=== PATIENT | female | born 1985 | race African-American/Black ===

== ENCOUNTER 2020-05-13 00:19 | Outpatient (CLI) | payer OTHER, SELFPAY ==
[2020-05-14 13:39] LABS: SARS-CoV-2 RNA PCR Negative
== END 2020-05-13 00:20 | disposition home or self-care (01) ==
LOC: ANHCOVIDDT 00:19
PROVIDERS: PCP Internal Medicine Gastroenterology; Visit Provider Obstetrics & Gynecology Gynecology
DX: Z01.812 Encounter for preprocedural laboratory examination (principal); Z11.59 Encounter for screening for other viral diseases
CPT/HCPCS: 87635; C9803; U0003

== ENCOUNTER 2020-05-16 01:19 | Day surgery (SDC) | payer OTHER, SELFPAY ==
[2020-05-02 15:12] VITALS: BMI 45.1
[2020-05-16] MEDS: ACETAMINOPHEN 500 MG TABLET 1000 MG PO (06:35)
[2020-05-16] MEDS: LACTATED RINGERS 1,000 ML 30 ML IV CONT (06:41)
[2020-05-16 06:57] VITALS: BP 139/94; PULSE 78; RESP 20; TEMP 36.2; O2SAT 98
--- NOTE | 2020-05-16 07:02 | WPDANESEPPF ---
Anes - Initial Pre Proc Eval Procedure: Operation Date: 05/16/20 07:30 Proposed Procedures p Hysteroscopy Dilation and Curettage - Rae Corbett MD Date/Time: 05/16/20 07:02 Surgeon: Rae Corbett MD Pre Op Diagnosis: Menorrhagia Patient Data Age: 34 Gender: F Height: 5 ft 2 in Weight: 110.2 kg Last Vital Signs Temp 97.2 F L 05/16/20 06:57 Pulse 78 05/16/20 06:57 Resp 20 05/16/20 06:57 BP 139/94 H 05/16/20 06:57 Pulse Ox 98 05/16/20 06:57 Allergies Allergy/AdvReac Type Severity Reaction Status Date / Time tramadol Allergy Unknown ANXIETY/HEART Verified 05/02/20 15:13 RACING hydrocodone AdvReac Mild Vomiting Verified 05/02/20 15:13 Home Medications Medication Instructions Recorded Confirmed Type drospirenone (contraceptive) 4 mg PO DAILY 05/02/20 05/16/20 History [Slynd] hydroxyzine HCl 25 mg PO HS 05/02/20 05/16/20 History metformin 500 mg PO DAILY 05/02/20 05/16/20 History Patient hx anesthesia problems: none Family hx anesthesia problems: none [facility] Past Medical History Medical History (Updated 05/16/20 @ 07:02 by Max Ayers MD) Anxiety Asthma Migraine Morbid obesity Social History Social History Smoking status: Never smoker Alcohol intake: current Drinks per week: 1 Spiritual care concerns: No Anes - Eval Final PreProcedure Day of Procedure 05/16/20 07:02 Patient weight: morbidly obese Heart: regular rate and rhythm Lungs: clear to auscultation Airway: Mallampati scale class II Neurological: alert and oriented Last oral intake: >/= 8 hours ASA classification: III Emergent: no Anesthetic plan: proceed Anesthesia type and monitoring: general GIVS and standard monitoring Informed Consent: The patient's anesthetic plan and its attendant risks and benefits were discussed with the patient/family/POA. Questions were solicited and answers provided to the satisfaction of the patient/family/POA.
--- NOTE | 2020-05-16 07:08 | PM.HPGS ---
History of Present Illness History of Present Illness Consent: Risks, benefits, and alternatives have been discussed and questions answered. Patient agrees to proceed with procedure. Chief complaint: Menorrhagia Narrative: Holly Lyles is a 34 year old female A2 here with menorrhagia for D&C hysteroscopy. Patient with episode of 21 days of bleeding with variable flow. 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 Just had another prolonged cycle as well. Prior to prolonged cycles she had cycles q other month x 3. U/s done and normal. Patient with known PCOS. Recommend and reviewed hysteroscopy with D&C. Risks of infection, bleeding, and perforation discussed. Patient agrees to proceed. [facility] Past Medical History Medical History (Updated 05/16/20 @ 07:15 by Rae Corbett MD) Anxiety Asthma Bipolar 1 disorder Ectopic treated with methotrexate Migraine Morbid obesity (normal spontaneous vaginal delivery) PCOS (polycystic ovarian syndrome) Surgical History Surgical History (Updated 05/16/20 @ 07:13 by Rae Corbett MD) Hx of tonsillectomy Social History Social History Smoking status: Never smoker Alcohol intake: current Drinks per week: 1 Spiritual care concerns: No Meds Home Medications and Allergies Home Medications Medication Instructions Recorded Confirmed Type drospirenone (contraceptive) 4 mg PO DAILY 05/02/20 05/16/20 History [Slynd] hydroxyzine HCl 25 mg PO HS 05/02/20 05/16/20 History metformin 500 mg PO DAILY 05/02/20 05/16/20 History Allergies Allergy/AdvReac Type Severity Reaction Status Date / Time tramadol Allergy Unknown ANXIETY/HEART Verified 05/02/20 15:13 RACING hydrocodone AdvReac Mild Vomiting Verified 05/02/20 15:13 Vital Signs Vital Signs - 24 hr 05/16/20 06:57 Temperature 97.2 F L Pulse Rate 78 Respiratory Rate 20 Blood Pressure 139/94 H Pulse Oximetry 98 Exam Const: General: no acute distress GI: GI Palp: Yes Soft to palpation and No Tenderness to palpation present (GI) : External Female Exam: normal external appearance Speculum Exam - Vagina: normal appearance of the vagina Speculum Exam - Cervix: normal appearance of the cervix Bimanual exam- vagina & uterus: normal bimanual exam Assessment and Plan Assessment and plan (1) Menorrhagia: Code(s): N92.0 - Excessive and frequent menstruation with regular cycle Status: Acute Assessment and Plan: Plan to proceed with hysteroscopy and D&C
--- NOTE | 2020-05-16 07:54 | PM.PROC ---
Procedure Note - Detailed Date of procedure: 05/16/20 Pre-op diagnosis: Menorrhagia Post-op diagnosis: same Procedure performed: hysteroscopy with D&C Description of procedure: The patient was taken to the operating room and placed under anesthesia in the dorsal lithotomy position. She is prepped and draped in the usual fashion. The bivalve speculum is placed in the vagina and the cervix grasped anteriorly with a tenaculum. The uterus sounds to 9cm. The cervix is serially dilated with Hegar. The diagnostic hysteroscope was placed with the stated findings. The hysteroscope is removed. A medium sharp curette is used to sharply curette the endometrium until a good uterine cry was noted in all areas. All instruments are removed. The patient is taken to recovery in stable condition. Anesthesia: MAC (with LMA) Surgeon: Rae Corbett MD Estimated blood loss (mL): 5 Drains: No Packing: No Pathology: yes (endometrial curettings) Complications: No immediate complications Condition: stable Disposition: PACU Findings: uterus 9 cm; grossly appears normal
[2020-05-16 07:58] VITALS: BP 139/94; PULSE 76; RESP 16; O2SAT 99
[2020-05-16 08:28] VITALS: BP 134/92; PULSE 76; RESP 16
[2020-05-16 08:58] VITALS: BP 155/92; PULSE 60; RESP 16
[2020-05-16 09:28] VITALS: BP 141/87; PULSE 61; RESP 16
== END 2020-05-16 09:45 | disposition home or self-care (01) ==
PROVIDERS: PCP Internal Medicine Gastroenterology; Visit Provider Obstetrics & Gynecology Gynecology
PROC: 0U5B8ZZ Destruction of Endometrium, Via Natural or Artificial Opening Endoscopic (ICD-10-PCS; CPT 58563; principal; 2020-05-16 07:30)
DX: N92.0 Excessive and frequent menstruation with regular cycle (principal); E66.01 Morbid (severe) obesity due to excess calories; Z68.41 Body mass index [BMI] 40.0-44.9, adult; F41.9 Anxiety disorder, unspecified; E28.2 Polycystic ovarian syndrome; Z79.84 Long term (current) use of oral hypoglycemic drugs; F31.9 Bipolar disorder, unspecified
CPT/HCPCS: 58558; 88305; A9270; J2250; J2704; J3010; J7030; J7120

== ENCOUNTER 2020-09-10 19:19 | Emergency (ER) | payer OTHER, SELFPAY ==
[2020-09-10] VITALS (7 sets, daily range): BP systolic 112–146; BP diastolic 55–95; PULSE 83; RESP 18; TEMP 36.9; O2SAT 99–100
--- NOTE | ~2020-09-10 | XR_ITS ---
EXAMINATION: XR chest 1V portable DATE: 09/10/2020 20:02 INDICATION: Cough and shortness of breath. TECHNIQUE: A single frontal view of the chest was obtained. COMPARISON: Chest 2 views 11/11/2018, CT abdomen and pelvis 03/31/2016 FINDINGS: The chest demonstrates clear lungs without pneumonia, pleural effusion, or pneumothorax. Th e heart size is normal. IMPRESSION: 1. No acute cardiopulmonary disease. Reviewed, dictated and finalized at location A. [employer]
--- NOTE | 2020-09-10 19:39 | ECG_ITS ---
Measurements Intervals [place]raw Rate: 66 P: 41 ID: 148 QRS: -11 QRSD: 86 T: 27 QT: 386 QTc: 406 Interpretive Statements SINUS RHYTHM WITH SINUS ARRHYTHMIA NONSPECIFIC T-WAVE ABNORMALITY- INFERIOR LEADS BORDERLINE ECG Electronically Signed On 09-11-2020 7:38:15 PRACTICE NURSE by Juan Perry D.O.
--- NOTE | 2020-09-10 19:41 | ED.GENADULT ---
HPI - General Adult General Chief complaint: Weakness Stated complaint: short of breath, weakness, has Covid Time Seen by Provider: 09/10/20 19:27 Source: RN notes reviewed History of Present Illness HPI narrative: Patient presents emergency department from home for dyspnea. Patient states that she began to feel sick approximately 4 days ago and had lost her sense of smell she had a Covid test at that time that came back positive today. She states this evening she began to have increasing feeling of chest tightness and shortness of breath. She states she also had nausea which she continues to have as well as an episode of diarrhea. States she has been feeling weak. She denies any fevers or chills abdominal pain or any other symptoms Related Data Home Medications Medication Instructions Recorded Confirmed hydroxyzine HCl 25 mg PO HS 05/02/20 05/16/20 cetirizine mg 09/10/20 Allergies Allergy/AdvReac Type Severity Reaction Status Date / Time tramadol Allergy Unknown ANXIETY/HEART Verified 09/10/20 19:21 RACING hydrocodone AdvReac Mild Vomiting Verified 09/10/20 19:21 Review of Systems Review of Systems: Narrative: Gen.: Denies fevers or chills ENT: Denies congestion Respiratory: See HPI CV: Reports chest tightness GI: Denies abdominal pain or emesis. Reports nausea and diarrhea denies Musculoskeletal: Denies back pain or muscle pain Neuro: Denies numbness, tingling, weakness or focal weakness Skin: Denies rash Except as documented, all other systems reviewed and negative PMFSH Past Medical History Medical History Anxiety Asthma Bipolar 1 disorder Ectopic treated with methotrexate Migraine Morbid obesity (normal spontaneous vaginal delivery) PCOS (polycystic ovarian syndrome) Surgical History Surgical History (Updated 05/16/20 @ 07:13 by Rae Corbett MD) Hx of tonsillectomy Social History Social History Smoking status: Never smoker Alcohol intake: current Drinks per week: 1 Gender identity (if verbalized by the patient): Female Spiritual care concerns: No Exam Narrative: Exam Narrative: APPEARANCE: No acute distress, nontoxic, resting in bed EYES: EOMI HEENT: Normocephalic, atraumatic, RESPIRATORY: No respiratory distress Clear to auscultation bilaterally with no rhonchi wheezing or rales. CARDIOVASCULAR: Regular rate and rhythm without murmurs rubs or gallops. ABDOMINAL: Soft, nontender, nondistended, no rebound or guarding MUSCULOSKELETAl: Moves all extremities. No clubbing, cyanosis or edema. NEURO: Awake and alert. Following commands, speech normal, no focal deficits SKIN:: Warm, dry. No rashes lesions or abrasions PSYCHIATRIC: Normal affect/mood, Course Course Emergency Course: Patient given inhaler in ED states symptoms have improved Discussed with patient results of workup and diagnosis. Discussed need for follow-up with primary care, proper use of medication, and reasons to return to the emergency department. Patient understands and agrees to current treatment plan Vital Signs Vital signs: Vital Signs Temperature 98.4 F 09/10/20 19:22 Pulse Rate 83 09/10/20 19:22 Respiratory Rate 18 09/10/20 19:22 Blood Pressure 146/95 H 09/10/20 19:22 Pulse Oximetry 100 09/10/20 19:22 Temperature 98.4 F 09/10/20 19:22 Pulse Rate 83 09/10/20 19:22 Respiratory Rate 18 09/10/20 19:22 Blood Pressure 146/95 H 09/10/20 19:22 Pulse Oximetry 100 09/10/20 19:22 Medical Decision Making Vital Signs Vital Signs: Vital Signs Temperature 98.4 F 09/10/20 19:22 Pulse Rate 83 09/10/20 19:22 Respiratory Rate 18 09/10/20 19:22 Blood Pressure 146/95 H 09/10/20 19:22 Pulse Oximetry 100 09/10/20 19:22 Temperature 98.4 F 09/10/20 19:22 Pulse Rate 83 09/10/20 19:22 Respiratory Rate 18
[2020-09-10 20:28] LABS: Basophils Percent Auto 0.1 % (0.2-1.2); Eosinophils Percent Auto 0.1 % (0-4.4); Hemoglobin 13.5 g/dL (12.0-15.0); Immature Granulocyte Absolute 0.02 K/mm3 (0.00-0.031); Immature Granulocyte Percent A 0.3 % (0-0.5); Lymphocytes Absolute Auto 1.12 K/mm3 (0.9-3.2); Lymphocytes Percent Auto 16.4 % (18.3-44.2); Mean Corpuscular HGB Conc 32.1 g/dl (32-36); Mean Corpuscular Hemoglobin 27.2 pg (26-34); Mean Corpuscular Volume 84.7 fl (80-100); Mean Platelet Volume 11.1 fl (7.4-10.4); Monocytes Absolute Auto 0.8 K/mm3 (0.1-0.6); Monocytes Percent Auto 11.3 % (2.6-8.5); Neutrophils Absolute Auto 4.9 K/mm3 (1.3-6.7); Neutrophils Percent Auto 71.8 % (45.5-73.1); Platelet Count Result 192 k/mm3 (150-375); Red Blood Count 4.96 M/mm3 (4.2-5.4); Red Cell Distribution Width 14.7 % (11.5-14.5); White Blood Count 6.8 K/mm3 (4.5-10.0)
[2020-09-10] MEDS: ONDANSETRON INJ 4 MG/2 ML VIAL IV PUSH (20:31)
[2020-09-10 20:38] LABS: INR 0.9; Partial Thromboplastin Time 27.8 SECONDS (22.3-36.8); Prothrombin Time 12.8 Seconds (11.1-14.7)
[2020-09-10 20:42] LABS: Alanine Aminotransferase 16 U/L (4-35); Albumin Level 3.8 g/dL (3.5-5.1); Alkaline Phosphatase 75 U/L (38-126); Anion Gap 5 mmol/L (8-16); Aspartate Amino Transferase 24 U/L (14-36); Bilirubin,Total 0.3 mg/dL (0.2-1.3); Blood Urea Nitrogen 12 mg/dL (7-17); Calcium 8.9 mg/dL (8.4-10.2); Carbon Dioxide 30 mmol/L (22-30); Chloride 101 mmol/L (98-107); Estimated CRCL calculation 81 ml/min; Estimated Glomerular Filt Rate > 60; Glucose 102 mg/dL (65-105); Potassium 3.7 mmol/L (3.4-5.0); Sodium 136 mmol/L (137-145)
[2020-09-10 21:00] LABS: Troponin I < 0.012 ng/mL (0.000-0.034)
[2020-09-10] MEDS: ALBUTEROL SULFATE (*SP) AEROSOL 1 PUFF 2 PUFF INHALATION (21:32)
[2020-09-10 21:43] LABS: Add Urine Microscopic? NO; Appearance Urine Clear (Clear); Bilirubin Urine Negative (Negative); Blood Urine Negative (Negative); Color Urine Straw (Yellow); Glucose Urine UA Negative (Negative); Ketones Urine Negative (Negative); Leukocyte Esterase Ur Negative LEU/UL (Negative); Nitrate Urine Negative (Negative); Protein Urine Negative (Negative); Specific Grav Ur 1.015 (1.001-1.035); Urobilinogen Urine Negative mg/dL (<2.0)
[2020-09-11 00:17] VITALS: BP 119/56; PULSE 84; RESP 18; O2SAT 100
== END 2020-09-11 00:18 | disposition home or self-care (01) ==
PROVIDERS: Emergency Provider Emergency Medicine; PCP Internal Medicine Gastroenterology
DX: U07.1 COVID-19 (principal); J45.909 Unspecified asthma, uncomplicated; E28.2 Polycystic ovarian syndrome; E66.01 Morbid (severe) obesity due to excess calories; Z68.41 Body mass index [BMI] 40.0-44.9, adult; R94.31 Abnormal electrocardiogram [ECG] [EKG]
CPT/HCPCS: 36415; 71045; 80053; 81003; 81025; 84484; 85025; 85380; 85610; 85730; 93005; 94640; 96365; 96375; 99284; A9270; J0131; J2405

== ENCOUNTER 2020-11-20 17:22 | Emergency (ER) | payer OTHER, SELFPAY ==
[2020-11-20 17:39] VITALS: BP 127/81; PULSE 76; RESP 16; TEMP 36.6; O2SAT 100
--- NOTE | 2020-11-20 17:43 | ED.GENADULT ---
HPI - General Adult General Chief complaint: Skin/Abscess/Foreign Body Stated complaint: pos skin abcess Time Seen by Provider: 11/20/20 17:43 Source: patient and RN notes reviewed Mode of arrival: ambulatory Limitations: no limitations History of Present Illness HPI narrative: 35-year-old -[place] female presents with complaints of a raised area to left lower back for months. Holly reports area increased in size, redness, tenderness, and swelling over the past 24 hours. No treatment. Tender to touch. No drainage. History of skin abscess. No fever or sweats. No abdominal pain, nausea, and vomiting. Tolerating po intake well. LMP 10/19/2020, irregular menstrual due to PCOS. Remains active. The patient reports she have not been diagnosed with COVID-19. The patient reports she is not waiting for the results of a COVID-19 lab test. The patient reports she do not have chills, weakness, or fatigue. The patient reports she do not have a new or worsening cough or shortness of breath. Denies chest pain. The patient reports she do not have any rhinorrhea, congestion, sore throat, loss of taste or smell, and diarrhea. Denies recent traveling. Denies concerns for COVID-19 or exposures been home with limited outdoor exposure except for essential household needs, work, and return home. At this time, patient is not suspected of having COVID-19. Some parts of this dictation were generated by voice recognition software and may contain typographical and/or grammatical inaccuracies. Related Data Home Medications Medication Instructions Recorded Confirmed hydroxyzine HCl 25 mg PO HS 05/02/20 05/16/20 Allergies Allergy/AdvReac Type Severity Reaction Status Date / Time tramadol Allergy Unknown ANXIETY/HEART Verified 09/10/20 19:21 RACING hydrocodone AdvReac Mild Vomiting Verified 09/10/20 19:21 Review of Systems Review of Systems: Narrative: CONSTITUTIONAL: Denies fever, chills, sweats. EYES: Denies visual changes, redness, discharge. ENT: Denies rhinorrhea, congestion, sore throat, otalgia. CARDIOVASCULAR: Denies chest pain, palpitations, edema. RESPIRATORY: Denies dyspnea, wheezing, cough. GASTROINTESTINAL: Denies abdominal pain, nausea, vomiting, diarrhea. SKIN: Denies rash or itching. Complains of raised area to left lower back with redness, tenderness, swelling. Denies drainage. MUSCULOSKELETAL: Denies acute back pain, joint pain, or myalgia. NEUROLOGIC: Denies numbness or focal weakness. PSYCHIATRIC: Denies anxiety or depression. All systems reviewed & are unremarkable except as noted in HPI and below. [facility] Past Medical History Medical History (Updated 11/21/20 @ 00:00 by Adela Parish) Anxiety Asthma Bipolar 1 disorder COVID-19 Ectopic treated with methotrexate Menorrhagia Migraine Morbid obesity (normal spontaneous vaginal delivery) PCOS (polycystic ovarian syndrome) Surgical History Surgical History (Updated 11/20/20 @ 18:05 by KURT Long) History of adenoidectomy History of dental surgery Hx of tonsillectomy Family History Family History (Updated 11/25/20 @ 01:24 by KURT Long) Father Unknown family medical history Mother Hypertension Breast cancer Lupus (systemic lupus erythematosus) Social History Social History (Updated 11/20/20 @ 18:07 by KURT Long) Smoking status: Former smoker Tobacco type: cigarettes Second hand tobacco smoke exposure: No (Holly reports being a light smoker when drinking) Alcohol intake: former Drinks per week: 1 Alcohol use details: reporting quitting 10/31/2020 Substance use: never Substance use type: does not use Living arrangements: with family Occupation/Education: occupation Gender identity (if verbalized by the patient): Female Sexual Orientation (if Verbalized by the Patient): Straight or Heterosexual Spiritual care concerns: No Comments At time of signature,
== END 2020-11-20 18:16 | disposition home or self-care (01) ==
PROVIDERS: Emergency Provider Nurse Practitioner Family; PCP Internal Medicine Gastroenterology
DX: L02.212 Cutaneous abscess of back [any part, except buttock and flank] (principal); J45.909 Unspecified asthma, uncomplicated; E28.2 Polycystic ovarian syndrome; Z86.16 Personal history of COVID-19; Z87.891 Personal history of nicotine dependence
CPT/HCPCS: 87070; 87075; 87076; 87205; 99213; G0463

== ENCOUNTER 2021-04-14 19:00 | Emergency (ER) | payer OTHER, SELFPAY ==
--- NOTE | ~2021-04-14 | XR_ITS ---
EXAMINATION: XR ankle RT min 3V DATE: 04/14/2021 20:16 INDICATION: Persistent right ankle pain post fall 3 months prior. TECHNIQUE: Anteroposterior, oblique, mortise, and lateral views of the right ankle were obtained. COMPARISON: 11/30/2012 FINDINGS: Alignment is normal. No fracture. Joint spaces are well maintained. No ankle joint effusion. Small Achilles and plantar calcaneal spurs. The soft tissues are unremarkable. IMPRESSION: 1. Small Achilles and plantar calcaneal spurs. Otherwise unremarkable right ankle radiographs. Reviewed, dictated and finalized at location A. IMPRESSION: 1. Small Achilles and plantar calcaneal spurs. Otherwise unremarkable right ank le radiographs.
--- NOTE | ~2021-04-14 | XR_ITS ---
EXAMINATION: XR hip LT min 2V DATE: 04/14/2021 20:17 INDICATION: Intermittent left hip pain TECHNIQUE: Anteroposterior , frog leg and cross-table lateral views of the left hip were obtained. COMPARISON: 03/31/16 FINDINGS: Alignment is normal. No fracture. Joint spaces are normal. A few phleboliths in the pelvis. Soft tiss ues are unremarkable. IMPRESSION: 1. Normal left hip. Reviewed, dictated and finalized at location A. IMPRESSION: 1. Normal left hip.
[2021-04-14 19:54] VITALS: BP 142/93; PULSE 89; RESP 18; TEMP 36; O2SAT 100
--- NOTE | 2021-04-14 21:14 | ED.GENADULT ---
HPI - General Adult General Chief complaint: Extremity Injury, Lower Stated complaint: right ankle and foot pain, left thigh pain Time Seen by Provider: 04/14/21 20:58 History of Present Illness HPI narrative: Patient 35-year-old female presents the emergency department with chief complaint of right ankle and foot pain and left thigh pain. Patient reports that for several months now she has been having pain in the right ankle was seen by orthopedic surgeon after she was seen in the ER at [facility] and reports that she was supposed to get an MRI but has had difficulty with her insurance and obtaining the MRI. Patient states that she was wearing a walking boot but that subsequently broke and she has been having pain continuously. Patient states is worse whenever she walks reports that it is improved with rest. The patient states that now she started having pain in her left thigh as she walks. The patient states that sharp worse with movement and improved with rest Related Data Home Medications Medication Instructions Recorded Confirmed hydroxyzine HCl 25 mg PO HS 05/02/20 05/16/20 Allergies Allergy/AdvReac Type Severity Reaction Status Date / Time tramadol Allergy Unknown ANXIETY/HEART Verified 09/10/20 19:21 RACING hydrocodone AdvReac Mild Vomiting Verified 09/10/20 19:21 Review of Systems Review of Systems: A 10 system review of systems was completed on the patient and is negative except for what is stated in the HPI. Nursing and ancillary documentation was reviewed. [facility] Past Medical History Medical History Anxiety Asthma Bipolar 1 disorder COVID-19 Ectopic treated with methotrexate Menorrhagia Migraine Morbid obesity (normal spontaneous vaginal delivery) PCOS (polycystic ovarian syndrome) Surgical History Surgical History History of adenoidectomy History of dental surgery Hx of tonsillectomy Family History Family History Father Unknown family medical history Mother Hypertension Breast cancer Lupus (systemic lupus erythematosus) Social History Social History Smoking status: Former smoker Tobacco type: cigarettes Second hand tobacco smoke exposure: No ([facility] reports being a light smoker when drinking) Alcohol intake: former Drinks per week: 1 Alcohol use details: reporting quitting 10/31/2020 Substance use: never Substance use type: does not use Gender identity (if verbalized by the patient): Female Spiritual care concerns: No Exam Narrative: GENERAL: Well-appearing, well-nourished, and in no acute distress. HEAD: Normocephalic, atraumatic. EYES: PERRLA and EOMI. ENT: Nares clear, no rhinorrhea or epistaxis. Mucous membranes moist. NECK: Supple. CHEST: Clear to auscultation. No respiratory distress. HEART: Regular rate and rhythm. No murmur heard. Normal peripheral pulses. ABDOMEN: Soft, nontender, nondistended, normal active bowel sounds. EXTREMITIES: Normal range of motion. No edema. There is tenderness to palpation in the right ankle., There is no swelling. There is tenderness in the left thigh there is no swelling there is a negative Homans' sign SKIN: Warm, dry, no rash. NEURO: No focal deficits. Alert and oriented x3. PSYCH: Normal mood and affect. Course Course Emergency Course: Plain film x-rays of the left hip show no evidence of fracture. Repeat x-rays of the right ankle showed no evidence of fracture but does show some heel spurs. Vital Signs Vital signs: Vital Signs Temperature 36.0 C L 04/14/21 19:54 Pulse Rate 89 04/14/21 19:54 Respiratory Rate 18 04/14/21 19:54 Blood Pressure 142/93 H 04/14/21 19:54 Pulse Oximetry 100 04/14/21 19:54 Temperature 36.6 C 04/14
[2021-04-14 21:37] VITALS: BP 139/88; PULSE 74; RESP 18; TEMP 36.6; O2SAT 100
[2021-04-14] MEDS: IBUPROFEN 400 MG TABLET 800 MG PO (21:40)
== END 2021-04-14 21:58 | disposition home or self-care (01) ==
LOC: ANHED 21:20
PROVIDERS: Emergency Provider Emergency Medicine; PCP Internal Medicine Gastroenterology
DX: S93.401A Sprain of unspecified ligament of right ankle, initial encounter (principal); S96.911A Strain of unspecified muscle and tendon at ankle and foot level, right foot, initial encounter; S76.012A Strain of muscle, fascia and tendon of left hip, initial encounter; S76.912A Strain of unspecified muscles, fascia and tendons at thigh level, left thigh, initial encounter; M77.31 Calcaneal spur, right foot; F31.9 Bipolar disorder, unspecified; E28.2 Polycystic ovarian syndrome; Z86.16 Personal history of COVID-19; Y33.XXXA Other specified events, undetermined intent, initial encounter
CPT/HCPCS: 73502; 73610; 99284; A9270

== ENCOUNTER 2021-09-14 14:21 | Emergency (ER) | payer OTHER, SELFPAY ==
--- NOTE | ~2021-09-14 | XR_ITS ---
EXAMINATION: XR chest 2V EXAM DATE: 09/14/2021 14:57 INDICATION: Cough, wheezing. History of asthma. TECHNIQUE: Frontal and lateral projections of the chest obtained and reviewed. Comparison is made to prior examination from 09/10/2020. FINDINGS: The lungs are clear. There are no pleural effusions. The cardiomediastinal silhouette is within normal limits. There is no pneumothorax suspected. The bones and soft tissues are unremarkab le. IMPRESSION: No acute cardiopulmonary findings. Reviewed, dictated and finalized at location A. W BALER
[2021-09-14 14:31] VITALS: BP 135/81; PULSE 89; RESP 16; TEMP 36.7; O2SAT 99
--- NOTE | 2021-09-14 14:31 | ED.URI ---
HPI - URI/Sore Throat General Chief Complaint: Upper Respiratory Infection Stated Complaint: cough Time Seen by Provider: 09/14/21 14:32 Source: patient, RN notes reviewed and old records reviewed Mode of arrival: ambulatory Limitations: no limitations History of Present Illness HPI Narrative: 36-year-old female presents to the [facility] care with complaints of a cough, nonproductive for 3 days. Has taken Mucinex and used her inhaler. Has a history of chronic bronchitis. Denies chest pain or abdominal pain. No nausea vomiting. Denies fevers MD elicited complaint: cough Related Data Home Medications Medication Instructions Recorded Confirmed hydroxyzine HCl 25 mg PO HS 05/02/20 09/14/21 Allergies Allergy/AdvReac Type Severity Reaction Status Date / Time tramadol Allergy Unknown ANXIETY/HEART Verified 09/14/21 14:33 RACING hydrocodone AdvReac Mild Vomiting Verified 09/14/21 14:33 Review of Systems Review of Systems: All systems reviewed & are unremarkable except as noted in HPI and below Constitutional: Constitutional: Reports no additional constitutional complaints, Denies chills and Denies fever(s) Eyes: Eyes: Reports no additional eye complaints ENT: Reports system reviewed and no additional complaints, except as documented Cardiovascular: Cardiovascular: Reports no additional cardiovascular complaints, Denies chest pain, Denies rapid heart rate, Denies radiating jaw, neck or arm pain and Denies slow heart rate Respiratory: Respiratory: Reports as per HPI, Reports chest congestion, Reports cough, Reports dyspnea and Reports wheezing Gastrointestinal: Gastrointestinal: Reports no additional gastrointestinal complaints, Denies abdominal pain, Denies diarrhea, Denies nausea and Denies vomiting Musculoskeletal: Musculoskeletal: Reports no additional musculoskeletal complaints Integumentary/Breasts: Skin/Breast: Reports system reviewed and no additional complaints, except as docu Neurologic: Reports system reviewed and no additional complaints, except as documented Psychiatric: Psychiatric: Reports no additional psychiatric complaints Allergic/Immunologic: Allergic/Immunologic: Reports no additional allergic/immunologic complaints PMFSH Past Medical History Medical History Anxiety Asthma Bipolar 1 disorder COVID-19 Ectopic treated with methotrexate Menorrhagia Migraine Morbid obesity (normal spontaneous vaginal delivery) PCOS (polycystic ovarian syndrome) Surgical History Surgical History History of adenoidectomy History of dental surgery Hx of tonsillectomy Family History Family History Father Unknown family medical history Mother Hypertension Breast cancer Lupus (systemic lupus erythematosus) Social History Social History Smoking status: Former smoker Tobacco type: cigarettes Second hand tobacco smoke exposure: No (Holly reports being a light smoker when drinking) Alcohol intake: former Drinks per week: 1 Alcohol use details: reporting quitting 10/31/2020 Substance use: never Substance use type: does not use Gender identity (if verbalized by the patient): Female Sexual Orientation (if Verbalized by the Patient): Straight or Heterosexual Spiritual care concerns: No Comments At the time of my signature, I reviewed and agree with the nursing past medical, surgical, social, and family history. There is no relevant family history pertinent to the patient complaint. Exam Const: General: healthy appearing, no acute distress and alert Nutritional Appearance: well nourished and obese Orientation/consciousness: patient oriented x3 Limitations: no limitations HENMT: Head: normal to inspection Ears: external ears normal, TM's normal bilaterally
[2021-09-14] MEDS: ALBUTEROL SULFATE NEB 2.5 MG/3 ML INH INHALATION (15:08)
[2021-09-14] MEDS: IPRATROPIUM BR 0.02% INH SOLN 0.5 MG/2.5 ML VIAL INHALATION (15:09)
[2021-09-14 15:40] VITALS: PULSE 96; RESP 20; O2SAT 100
== END 2021-09-14 15:50 | disposition home or self-care (01) ==
PROVIDERS: Emergency Provider Nurse Practitioner; PCP Internal Medicine Gastroenterology
DX: J40 Bronchitis, not specified as acute or chronic (principal); Z87.891 Personal history of nicotine dependence; J45.909 Unspecified asthma, uncomplicated; Z86.16 Personal history of COVID-19; E28.2 Polycystic ovarian syndrome; E66.01 Morbid (severe) obesity due to excess calories; Z68.41 Body mass index [BMI] 40.0-44.9, adult; F41.9 Anxiety disorder, unspecified
CPT/HCPCS: 71046; 94640; 99213; G0463

== ENCOUNTER 2022-02-19 18:24 | Emergency (ER) | payer OTHER, SELFPAY ==
--- NOTE | ~2022-02-19 | CT_ITS ---
EXAMINATION: CT abdomen pelvis wo con DATE: 02/19/2022 19:45 INDICATION: right flank pain, hematuria TECHNIQUE: Computed tomography (CT) of the abdomen and pelvis was performed without intravenous contr ast. Automated exposure control and iterative reconstruction technique were employed. The dose-length product was 1425.59 mGy-cm. COMPARISON: 03/31/2016. FINDINGS: Lower thorax: Unremarkable Liver: Normal. Biliary/Gallbladder: Gallbladder is normal. No bile duct dilation. Pancreas: No mass or duct dilation. Spleen: Normal. Adrenals:No mass. Kidneys: No mass, stone, or hydronephrosis. GI tract: No small or large bowel dilation. Normal appendix. Mesentery/Peritoneum: No ascites, mass, or free air. Retroperitoneum: No mass. Pelvis: Pelvic organs are within normal limits. Soft Tissues: Soft tissues and body wall unremarkable. Bones: No acute osseous finding. IMPRESSION: No acute abdominopelvic process detected. Reviewed, dictated and finalized at location K.
[2022-02-19 18:26] VITALS: BP 139/87; PULSE 117; RESP 16; TEMP 36.7; O2SAT 97
[2022-02-19 18:36] LABS: Basophils Percent Auto 0.3 % (0.2-1.2); Eosinophils Absolute Auto 0.1 K/mm3 (0-0.3); Eosinophils Percent Auto 1.1 % (0-4.4); Hematocrit 42.3 % (37.0-47.0); Hemoglobin 13.1 g/dL (12.0-15.0); Immature Granulocyte Absolute 0.07 K/mm3 (0.00-0.031); Immature Granulocyte Percent A 0.7 % (0-0.5); Lymphocytes Absolute Auto 2.05 K/mm3 (0.9-3.2); Lymphocytes Percent Auto 19.6 % (18.3-44.2); Mean Corpuscular Hemoglobin 27.5 pg (26-34); Mean Corpuscular Volume 88.9 fl (80-100); Mean Platelet Volume 10.2 fl (7.4-10.4); Monocytes Absolute Auto 0.4 K/mm3 (0.1-0.6); Neutrophils Absolute Auto 7.8 K/mm3 (1.3-6.7); Neutrophils Percent Auto 74.3 % (45.5-73.1); Platelet Count Result 237 k/mm3 (150-375); Red Blood Count 4.76 M/mm3 (4.2-5.4); Red Cell Distribution Width 14.5 % (11.5-14.5); White Blood Count 10.5 K/mm3 (4.5-10.0)
[2022-02-19 18:51] LABS: Alanine Aminotransferase 19 U/L (6-35); Albumin Level 4.1 g/dL (3.5-5.1); Alkaline Phosphatase 92 U/L (38-126); Anion Gap 4 mmol/L (8-16); Aspartate Amino Transferase 21 U/L (14-36); Bilirubin,Total 0.3 mg/dL (0.2-1.3); Blood Urea Nitrogen 17 mg/dL (7-17); Calcium 8.8 mg/dL (8.4-10.2); Carbon Dioxide 29 mmol/L (22-30); Chloride 106 mmol/L (98-107); Estimated CRCL calculation 82 ml/min; Estimated Glomerular Filt Rate > 60; Glucose 141 mg/dL (65-110); Sodium 139 mmol/L (137-145)
[2022-02-19 18:56] LABS: Appearance Urine Slightly Cloudy (Clear); Bilirubin Urine Negative (Negative); Blood Urine Negative (Negative); Color Urine Yellow (Yellow); Glucose Urine UA Negative (Negative); Ketones Urine Negative (Negative); Leukocyte Esterase Ur Trace LEU/UL (Negative); Nitrate Urine Negative (Negative); Protein Urine Negative (Negative); Specific Grav Ur >= 1.030 (1.001-1.035); Urobilinogen Urine 0.2 mg/dL (<2.0); pH Urine 5.5 (5.0-9.0)
[2022-02-19 19:00] LABS: Bacteria Urine Trace /hpf; Mucus Urine Rare /lpf; Squamous Epithelial Cell Urine Many /hpf (Few); WBC Urine 16-20 /hpf
[2022-02-19 19:03] LABS: Add Urine Microscopic? YES
--- NOTE | 2022-02-19 19:36 | ED.GENADULT ---
HPI - General Adult General Chief complaint: Abdominal Pain Stated complaint: side pain Time Seen by Provider: 02/19/22 19:27 History of Present Illness HPI narrative: 36-year-old female presented to the emergency department for evaluation of right flank pain and burning with urination. Patient states she began having the urinary symptoms on Saturday. Patient describes burning with urination, some hematuria and bladder spasm after urinating. Patient states that approximately 2 days ago she began developing some right flank pain. Patient describes the pain as starting at her right lower flank and radiating around to her right lower quadrant. Patient denies any prior history of kidney stones. Related Data Home Medications Medication Instructions Recorded Confirmed hydroxyzine HCl 25 mg tablet 25 mg PO HS 05/02/20 09/14/21 Allergies Allergy/AdvReac Type Severity Reaction Status Date / Time tramadol Allergy Unknown ANXIETY/HEART Verified 02/19/22 20:20 RACING hydrocodone AdvReac Mild Vomiting Verified 02/19/22 20:20 Review of Systems Review of Systems: CONSTITUTIONAL: Denies fever, chills, or sweats. EYES: Denies visual changes, redness, or discharge. ENT: Denies rhinorrhea, congestion, sore throat, or otalgia. CARDIOVASCULAR: Denies chest pain, palpitations, or edema. RESPIRATORY: Denies cough or dyspnea. GASTROINTESTINAL: Denies abdominal pain, nausea, vomiting, or diarrhea. GENITOURINARY: See HPI SKIN: Denies rash or itching. MUSCULOSKELETAL: Denies back pain, joint pain, or myalgia. NEUROLOGIC: Denies headache, numbness, or weakness. [facility] Past Medical History Medical History Anxiety Asthma Bipolar 1 disorder COVID-19 Ectopic treated with methotrexate Menorrhagia Migraine Morbid obesity (normal spontaneous vaginal delivery) PCOS (polycystic ovarian syndrome) Surgical History Surgical History History of adenoidectomy History of dental surgery Hx of tonsillectomy Family History Family History Father Unknown family medical history Mother Hypertension Breast cancer Lupus (systemic lupus erythematosus) Social History Social History Smoking status: Former smoker Tobacco type: cigarettes Second hand tobacco smoke exposure: No (Holly reports being a light smoker when drinking) Alcohol intake: former Drinks per week: 1 Alcohol use details: reporting quitting 10/31/2020 Substance use: never Substance use type: does not use Gender identity (if verbalized by the patient): Female Sexual Orientation (if Verbalized by the Patient): Straight or Heterosexual Spiritual care concerns: No Exam Narrative: APPEARANCE: Well appearing, no pain, no distress, well-nourished. HEAD: normocephalic, atraumatic. EYES: PERRLA/EOMI, conjunctivae clear. NOSE: Normal no drainage NECK: Supple. No adenopathy, no masses. RESPIRATORY: Airway patent, respirations nonlabored. Clear to auscultation bilaterally, no rales, rhonchi, wheezing. CARDIOVASCULAR: Regular rate and rhythm without murmurs rubs or gallops. ABDOMINAL: Soft, nondistended, normal bowel sounds, suprapubic tenderness to palpation. Some right CVA tenderness to palpation. MUSCULOSKELETAL: Moves all extremities. Strength/ROM intact, No edema, No calf tenderness. NEURO: Alert. Cranial nerves II through XII intact. Grossly intact SKIN: Warm, dry. Normal Color Course Course Emergency Course: CT was negative for any acute abnormality. Urine is consistent with a urinary tract infection. Patient was treated with 1 g of IV Rocephin and transition to Keflex for home. Patient was updated on the results of the work-up and plan for treatment. All questions and concerns were addressed. Patient was well-appearing at t
[2022-02-19 20:20] VITALS: BP 114/82; PULSE 88; RESP 16; O2SAT 98
[2022-02-19] MEDS: SODIUM CHLORIDE 0.9% IV 1,000 ML 999 ML IV CONT (20:27)
[2022-02-19] MEDS: KETOROLAC 15 MG/ML VIAL (*BKC) IV PUSH (20:40)
[2022-02-19 21:43] VITALS: BP 119/88; PULSE 71; RESP 16; O2SAT 100
== END 2022-02-19 21:38 | disposition home or self-care (01) ==
PROVIDERS: Emergency Medicine; Emergency Provider Emergency Medicine; PCP Internal Medicine Gastroenterology
DX: N39.0 Urinary tract infection, site not specified (principal); J45.909 Unspecified asthma, uncomplicated; E28.2 Polycystic ovarian syndrome; E66.01 Morbid (severe) obesity due to excess calories; Z68.41 Body mass index [BMI] 40.0-44.9, adult; Z86.16 Personal history of COVID-19; Z87.891 Personal history of nicotine dependence
CPT/HCPCS: 36415; 74176; 80053; 81001; 81025; 85025; 87077; 87086; 87088; 87186; 96365; 96375; 99284; J0696; J1885; J7030

== ENCOUNTER 2022-09-05 16:38 | Emergency (ER) | payer OTHER, SELFPAY ==
--- NOTE | ~2022-09-05 | US_ITS ---
EXAMINATION: US venous doppler [facility] DATE: 09/05/2022 19:36 INDICATION: Left thigh pain and swelling. TECHNIQUE: Grayscale images without and with compression and Doppler images of the left lower extremi ty veins were obtained. COMPARISON: None FINDINGS: The left common femoral vein, profunda femoral vein, femoral vein, popliteal vein, peroneal vein, pos terior tibial veins, gastrocnemius vein, and greater saphenous vein are patent. IMPRESSION: 1. Patent left lower extremity veins. No evidence of deep venous thrombosis. Reviewed, dictated and finalized at location K. RN CAR ATTENDANT
--- NOTE | 2022-09-05 18:00 | ED.GENADULT ---
HPI - General Adult General Chief complaint: Extremity Injury, Lower Stated complaint: thigh pain Time Seen by Provider: 09/05/22 17:30 History of Present Illness HPI narrative: Ms. Simeon is a 37-year-old female who presented to the emergency room with complaints of last time but again thigh pain. Patient states she was lying on the couch the other evening and she turned on the couch and felt a pop in her left thigh and buttock. Patient states she has had pain to her left thigh and buttocks since that point in time. Patient states that she has taken a new muscle relaxer as well as ibuprofen without any relief. Patient states the pain is mostly when she tries to move. Patient denies any history of DVT, but she did call her primary care provider here and states that she needed to have a blood clot ruled out. Patient denies any swelling to the area. Patient states that the pain comes and goes, but is typically only when she moves. Patient states that her home medications are hydroxyzine and Seroquel. Related Data Home Medications Medication Instructions Recorded Confirmed hydroxyzine HCl 25 mg tablet 25 mg PO HS 05/02/20 09/14/21 Allergies Allergy/AdvReac Type Severity Reaction Status Date / Time tramadol Allergy Unknown ANXIETY/HEART Verified 09/05/22 16:51 RACING hydrocodone AdvReac Mild Vomiting Verified 09/05/22 16:51 Review of Systems Review of Systems: A 12 point review of systems was completed patient all pertinent positive and negative per HPI the remainder are unremarkable. [facility] Past Medical History Medical History Anxiety Asthma Bipolar 1 disorder COVID-19 Ectopic treated with methotrexate Menorrhagia Migraine Morbid obesity (normal spontaneous vaginal delivery) PCOS (polycystic ovarian syndrome) Surgical History Surgical History History of adenoidectomy History of dental surgery Hx of tonsillectomy Family History Family History Father Unknown family medical history Mother Hypertension Breast cancer Lupus (systemic lupus erythematosus) Social History Social History Smoking status: Former smoker Tobacco type: cigarettes Second hand tobacco smoke exposure: No (Holly reports being a light smoker when drinking) Alcohol intake: former Drinks per week: 1 Alcohol use details: reporting quitting 10/31/2020 Substance use: never Substance use type: does not use Gender identity (if verbalized by the patient): Female Sexual Orientation (if Verbalized by the Patient): Straight or Heterosexual Spiritual care concerns: No Exam Narrative: Constitutional: Patient is well-nourished in no acute distress. Patient is alert and oriented x3 HEENT: Moist mucous membranes. No scleral icterus. No lymphadenopathy. Neck: No carotid bruits noted no JVD noted Lungs: Lung sounds are clear to auscultation bilaterally. No accessory muscle use. No rhonchi, rales, or wheezes noted. Cardiovascular: Apical pulse is regular rate and rhythm. S1-S2 noted, no S3 or S4 noted. No gallops, murmurs, or rubs noted. Abdomen: Soft, round, and nontender. No palpable masses. Extremities: No edema. Nontender. You pedal pulses are palpable at 3+ bilaterally. Posterior tibial pulses are 3+ bilaterally. Musculoskeletal: Patient has full range of motion of all extremities. Skin: No rashes or lesions. Warm and dry. Skin is intact. Neurological: No focal neurological deficits. Cranial nerves II-XII grossly intact. Psychiatric: Cooperative, appropriate mood, and affect Medical Decision Making Differential Diagnosis Differential Diagnosis: Muscle strain, hip sprain, Imaging Data Radiologist's impression: Venous Doppler of left lower extremity: IMPRESSION:
[2022-09-05 20:39] VITALS: BP 139/87; PULSE 79; RESP 16; O2SAT 100
== END 2022-09-05 20:40 | disposition home or self-care (01) ==
PROVIDERS: Emergency Provider Nurse Practitioner Adult Health; PCP Internal Medicine Gastroenterology
DX: S76.112A Strain of left quadriceps muscle, fascia and tendon, initial encounter (principal); J45.909 Unspecified asthma, uncomplicated; E28.2 Polycystic ovarian syndrome; E66.01 Morbid (severe) obesity due to excess calories; Z68.42 Body mass index [BMI] 45.0-49.9, adult; Z86.16 Personal history of COVID-19; Z87.891 Personal history of nicotine dependence; X50.9XXA Other and unspecified overexertion or strenuous movements or postures, initial encounter
CPT/HCPCS: 93971; 99284

== ENCOUNTER 2022-10-12 11:12 | Emergency (ER) | payer OTHER, SELFPAY ==
--- NOTE | 2022-10-12 11:17 | ED.LOWEXIN ---
HPI - Extremity Injury (Lower) General Chief Complaint: Extremity Injury, Lower Stated Complaint: Pain in right foot Time Seen by Provider: 10/12/22 11:50 Source: patient and RN notes reviewed Mode of arrival: ambulatory Limitations: no limitations History of Present Illness HPI Narrative: 37-year-old female presents concern for lateral ankle pain and great toe pain of the right foot. She reports 1.5 years ago she had a ligament repair procedure done on the ankle, she has been out of her boot for 1 year. She reports recently she began having sharp shooting pain above her surgical scar. She denies any new injury or trauma. She denies redness, tenderness. Reports pain with light touch to the skin. She also reports pain in the pedal aspect of the great toe without injury. She denies tenderness to the toe. Reports pain is elicited when she puts pressure on the toe and walking. MD complaint: foot injury Related Data Home Medications Medication Instructions Recorded Confirmed hydroxyzine HCl 25 mg tablet 25 mg PO HS 05/02/20 10/12/22 quetiapine 25 mg tablet 25 mg PO HS 10/12/22 10/12/22 Allergies Allergy/AdvReac Type Severity Reaction Status Date / Time tramadol Allergy Unknown ANXIETY/HEART Verified 10/12/22 11:26 RACING hydrocodone AdvReac Mild Vomiting Verified 10/12/22 11:26 Review of Systems Review of Systems: CONSTITUTIONAL: Denies malaise, chills, sweats, or fever. SKIN: Denies rash or itching, open skin, laceration, abrasion, redness, warmth, swelling. MUSCULOSKELETAL: Reports right ankle pain, pain in the 1st digit of the right foot NEUROLOGIC: Denies numbness, weakness All systems reviewed & are unremarkable except as noted in HPI and below PMFSH Past Medical History Medical History Anxiety Asthma Bipolar 1 disorder COVID-19 Ectopic treated with methotrexate Menorrhagia Migraine Morbid obesity (normal spontaneous vaginal delivery) PCOS (polycystic ovarian syndrome) Surgical History Surgical History History of adenoidectomy History of dental surgery Hx of tonsillectomy Family History Family History Father Unknown family medical history Mother Hypertension Breast cancer Lupus (systemic lupus erythematosus) Social History Social History Smoking status: Former smoker Tobacco type: cigarettes Second hand tobacco smoke exposure: No (Holly reports being a light smoker when drinking) Alcohol intake: former Drinks per week: 1 Alcohol use details: reporting quitting 10/31/2020 Substance use: never Substance use type: does not use Living arrangements: with family Occupation/Education: occupation Gender identity (if verbalized by the patient): Female Sexual Orientation (if Verbalized by the Patient): Straight or Heterosexual Spiritual care concerns: No Comments At time of signature, agree with nursing past medical, surgical, social and family history. There is no relevant family history pertinent to the presenting complaint Exam Narrative: GENERAL: Well-appearing, well-nourished, and in no acute distress. HEAD: Normocephalic, atraumatic. EYES: PERRLA, conjunctivae clear NECK: Supple. CHEST: Speaks in full sentences. No respiratory distress. HEART: Regular rate and rhythm. Normal and equal peripheral pulses. EXTREMITIES: Right ankle, foot, digits have grossly normal strength and sensation, normal range of motion. No edema or ecchymosis. 5/5 strength with ankle in digit flexion and extension. Normal sensation with sensitivity to light touch and pain. No 1st digit tenderness. Surgical scar noted the right lateral ankle, Pain elicited with light touch above the surgical scar on the ankle. No open wounds, no skin tenting, no devitalized tissue or
[2022-10-12 11:23] VITALS: BP 127/67; PULSE 78; RESP 16; TEMP 36.9; O2SAT 99
== END 2022-10-12 12:10 | disposition home or self-care (01) ==
PROVIDERS: Emergency Provider Nurse Practitioner; PCP Internal Medicine Gastroenterology
DX: M25.571 Pain in right ankle and joints of right foot (principal); Z87.891 Personal history of nicotine dependence
CPT/HCPCS: 99213; G0463

== ENCOUNTER 2022-12-05 11:47 | Emergency (ER) | payer OTHER, SELFPAY ==
--- NOTE | ~2022-12-05 | CT_ITS ---
EXAMINATION: CT abdomen pelvis w con DATE: 12/05/2022 14:08 INDICATION: RUQ/R flank/RLQ pain X 1.5 weeks, N/V TECHNIQUE: Computed tomography (CT) of the abdomen and pelvis was performed with 100 mL Omnipaque-350 intravenous contrast. Automated exposure control and iterative reconstruction technique were employe d. The dose-length product was 1504.61 mGy-cm. COMPARISON: 02/19/2022. FINDINGS: Lower thorax: Small hiatal hernia. Liver: Bilateral subcentimeter hypodensities that are too small to characterize but most likely repre sent cysts or hemangiomas Biliary/Gallbladder: Gallbladder is normal. No bile duct dilation. Pancreas: No mass or duct dilation. Spleen: Normal. Adrenals:No mass. Kidneys: No mass, stone, or hydronephrosis. GI tract: Mild distal esophageal and gastric wall edema. No small or large bowel dilation. Normal graham endix. Mesentery/Peritoneum: No ascites, mass, or free air. Retroperitoneum: No mass. Pelvis: Pelvic organs are within normal limits. Soft Tissues: Small uncomplicated fat-containing umbilical hernia Bones: No acute osseous finding. IMPRESSION: Mild esophagitis/gastritis. No other acute abdominopelvic process detected. Reviewed, dictated and finalized at location K.
[2022-12-05 11:52] VITALS: BP 120/88; PULSE 82; RESP 18; TEMP 37.1; O2SAT 99
[2022-12-05 12:11] VITALS: O2SAT 98
[2022-12-05 12:11] LABS: Basophils Absolute Auto 0.1 K/mm3 (0.0-0.1); Basophils Percent Auto 0.6 % (0.2-1.2); Eosinophils Absolute Auto 0.1 K/mm3 (0-0.3); Eosinophils Percent Auto 1.3 % (0-4.4); Hematocrit 41.6 % (37.0-47.0); Hemoglobin 13.5 g/dL (12.0-15.0); Immature Granulocyte Absolute 0.03 K/mm3 (0.00-0.031); Immature Granulocyte Percent A 0.3 % (0-0.5); Lymphocytes Absolute Auto 2.17 K/mm3 (0.9-3.2); Lymphocytes Percent Auto 25.3 % (18.3-44.2); Mean Corpuscular HGB Conc 32.5 g/dl (32-36); Mean Corpuscular Hemoglobin 27.9 pg (26-34); Mean Platelet Volume 10.8 fl (7.4-10.4); Monocytes Absolute Auto 0.7 K/mm3 (0.1-0.6); Monocytes Percent Auto 8.3 % (2.6-8.5); Neutrophils Absolute Auto 5.5 K/mm3 (1.3-6.7); Neutrophils Percent Auto 64.2 % (45.5-73.1); Platelet Count Result 227 k/mm3 (150-375); Red Blood Count 4.84 M/mm3 (4.2-5.4); Red Cell Distribution Width 13.9 % (11.5-14.5); White Blood Count 8.6 K/mm3 (4.5-10.0)
[2022-12-05 12:12] VITALS: BP 129/85; O2SAT 100
[2022-12-05 12:15] VITALS: O2SAT 95
--- NOTE | 2022-12-05 12:16 | PC.NURSE ---
Patient ambulatory to the with steady gait. Unable to provide urine sample at this time.
[2022-12-05 12:23] LABS: Alanine Aminotransferase 20 U/L (6-35); Albumin Level 4.4 g/dL (3.5-5.1); Alkaline Phosphatase 79 U/L (38-126); Anion Gap 4 mmol/L (8-16); Aspartate Amino Transferase 23 U/L (14-36); Bilirubin,Total 0.5 mg/dL (0.2-1.3); Blood Urea Nitrogen 9 mg/dL (7-17); Calcium 8.7 mg/dL (8.4-10.2); Carbon Dioxide 31 mmol/L (22-30); Chloride 104 mmol/L (98-107); Estimated CRCL calculation 116 ml/min; Estimated Glomerular Filt Rate > 60; Glucose 103 mg/dL (65-110); Lipase 109 U/L (23-300); Potassium 4.4 mmol/L (3.4-5.0); Sodium 139 mmol/L (137-145)
[2022-12-05] MEDS: SODIUM CHLORIDE 0.9% IV 1,000 ML 999 ML IV CONT (13:24)
--- NOTE | 2022-12-05 13:52 | ED.ABDPAIN ---
HPI - Abdominal Pain General Chief Complaint: Abdominal Pain Stated Complaint: flank/abd pain Time Seen by Provider: 12/05/22 11:55 Source: patient Mode of arrival: ambulatory Limitations: no limitations History of Present Illness HPI narrative: Patient is a 37 y/o female who presents to the ED with c/o right flank and right-sided abdominal pain. Patient reports having intermittent pain for the last week and a half. She states the pain is mostly in her right flank/right lower back but occasionally radiates around to her right side and right lower abdomen. She was seen at [facility] last week and told she had a normal urinalysis. They did not do any other work-up. Pain has continued. She denies any noticeable aggravating or alleviating factors to her pain. She reported having nausea and vomiting associated with the pain this morning, which prompted her presentation. She did take Zofran at home which improved her nausea. Has not tried anything for the pain today. Denies any diarrhea, constipation, rectal bleeding, melena, fevers, urinary symptoms. Denies history of kidney stones. Related Data Home Medications Medication Instructions Recorded Confirmed hydroxyzine HCl 25 mg tablet 25 mg PO HS 05/02/20 10/12/22 quetiapine 25 mg tablet 25 mg PO HS 10/12/22 10/12/22 Allergies Allergy/AdvReac Type Severity Reaction Status Date / Time hydrocodone AdvReac Mild Vomiting Verified 12/05/22 11:57 tramadol AdvReac Unknown ANXIETY/HEART Verified 12/05/22 14:21 RACING Review of Systems Review of Systems: CONSTITUTIONAL: Denies fever, chills, or sweats. CARDIOVASCULAR: Denies chest pain. RESPIRATORY: Denies dyspnea. GASTROINTESTINAL: See HPI. GENITOURINARY: Denies dysuria or hematuria. SKIN: Denies rash or itching. MUSCULOSKELETAL: See HPI. All systems reviewed & are unremarkable except as noted in HPI and below PMFSH Past Medical History Medical History Anxiety Asthma Bipolar 1 disorder COVID-19 Ectopic treated with methotrexate Menorrhagia Migraine Morbid obesity (normal spontaneous vaginal delivery) PCOS (polycystic ovarian syndrome) Surgical History Surgical History History of adenoidectomy History of dental surgery Hx of tonsillectomy Family History Family History Father Unknown family medical history Mother Hypertension Breast cancer Lupus (systemic lupus erythematosus) Social History Social History Smoking status: Former smoker Tobacco type: cigarettes Second hand tobacco smoke exposure: No (Holly reports being a light smoker when drinking) Alcohol intake: former Drinks per week: 1 Alcohol use details: reporting quitting 10/31/2020 Substance use: never Substance use type: does not use Living arrangements: with family Occupation/Education: occupation Gender identity (if verbalized by the patient): Female Sexual Orientation (if Verbalized by the Patient): Straight or Heterosexual Spiritual care concerns: No Exam Narrative: GENERAL: Well appearing, obese, non-toxic, in no acute distress. HEAD: Normocephalic, atraumatic. NECK: Supple. No adenopathy, no masses. RESPIRATORY: Airway patent, respirations nonlabored. Clear to auscultation bilaterally, no rales, rhonchi, wheezing. CARDIOVASCULAR: Regular rate and rhythm without murmurs, rubs, or gallops. Peripheral pulses 2+ and equal bilaterally. ABDOMINAL: Soft, tenderness throughout right upper abdomen, right lower abdomen, right lateral side. Nondistended, no hepatosplenomegaly. Normoactive BS. MUSCULOSKELETAL: Moves all extremities. Strength/ROM intact without gross deformities. No significant tenderness throughout lumbosacral region. No midline spina
[2022-12-05 14:09] LABS: Appearance Urine Clear (Clear); Bacteria Urine Rare /hpf; Bilirubin Urine Negative (Negative); Blood Urine 2+ (Negative); Color Urine Yellow (Yellow); Glucose Urine UA Negative (Negative); Ketones Urine Negative (Negative); Leukocyte Esterase Ur Trace LEU/UL (Negative); Nitrate Urine Negative (Negative); Non Pathogenic Casts 0-2; Protein Urine Negative (Negative); RBC Urine 0-2 /hpf (0-2); Specific Grav Ur 1.017 (1.001-1.035); Squamous Epithelial Cell Urine Occasional /hpf (Few); pH Urine 7.5 (5.0-9.0)
[2022-12-05 14:17] LABS: Add Urine Microscopic? YES
[2022-12-05] MEDS: KETOROLAC 30 MG/ML VIAL (*BKC) IV PUSH (14:26)
[2022-12-05 15:40] VITALS: BP 110/77; PULSE 80; RESP 18; O2SAT 100
== END 2022-12-05 15:41 | disposition home or self-care (01) ==
PROVIDERS: Emergency Medicine; Emergency Provider Physician Assistant; PCP Internal Medicine Gastroenterology
DX: R10.9 Unspecified abdominal pain (principal); R82.998 Other abnormal findings in urine; E28.2 Polycystic ovarian syndrome; E66.01 Morbid (severe) obesity due to excess calories; Z68.35 Body mass index [BMI] 35.0-35.9, adult; F41.9 Anxiety disorder, unspecified; F31.9 Bipolar disorder, unspecified; Z86.16 Personal history of COVID-19; Z87.891 Personal history of nicotine dependence; K29.70 Gastritis, unspecified, without bleeding; K20.90 Esophagitis, unspecified without bleeding
CPT/HCPCS: 36415; 74177; 80053; 81001; 81025; 83690; 85025; 87086; 96361; 96365; 96375; 99284; J0131; J1885; J7030; Q9967

== ENCOUNTER 2023-01-16 13:30 | Emergency (ER) | payer OTHER, SELFPAY ==
[2023-01-16 13:31] VITALS: BP 136/67; PULSE 90; RESP 16; TEMP 36.7; O2SAT 100
[2023-01-16 13:42] VITALS: BP 139/69; PULSE 91; RESP 16; O2SAT 100
--- NOTE | 2023-01-16 14:27 | ED.FEMALEGU ---
HPI - Female Genitourinary General Chief complaint: Vaginal Bleeding Stated complaint: LOSING ALOT OF BLOOD Time Seen by Provider: 01/16/23 13:38 History of Present Illness HPI Narrative: Patient is a 37-year-old female presenting with vaginal bleeding. Patient states that she was having regular periods until October. States that she did not have a period in October or December. States that she has a history of PCOS so she did not initially think much of it. States that she started bleeding on January 02 and has been bleeding for the last several weeks. States that for the last 3 days her bleeding has worsened and she is now soaking an ultra tampon and a pad almost every hour. States that she called her DIRECTOR OF CONSULTING SERVICES today who recommended that she come in for evaluation. Patient states that she has had numerous negative tests at home. Reports some lower abdominal cramping. No fevers, chest pain, shortness of breath, syncope, vomiting, diarrhea, dysuria, leg swelling. Related Data Home Medications Medication Instructions Recorded Confirmed hydroxyzine HCl 25 mg tablet 25 mg PO HS 05/02/20 10/12/22 quetiapine 25 mg tablet 25 mg PO HS 10/12/22 10/12/22 Allergies Allergy/AdvReac Type Severity Reaction Status Date / Time hydrocodone AdvReac Mild Vomiting Verified 01/16/23 13:45 tramadol AdvReac Unknown ANXIETY/HEART Verified 01/16/23 13:45 RACING Review of Systems Review of Systems: All systems reviewed & are unremarkable except as noted in HPI and below PMFSH Past Medical History Medical History Anxiety Asthma Bipolar 1 disorder COVID-19 Ectopic treated with methotrexate Menorrhagia Migraine Morbid obesity (normal spontaneous vaginal delivery) PCOS (polycystic ovarian syndrome) Surgical History Surgical History History of adenoidectomy History of dental surgery Hx of tonsillectomy Family History Family History Father Unknown family medical history Mother Hypertension Breast cancer Lupus (systemic lupus erythematosus) Social History Social History Smoking status: Former smoker Tobacco type: cigarettes Second hand tobacco smoke exposure: No (Holly reports being a light smoker when drinking) Alcohol intake: former Drinks per week: 1 Alcohol use details: reporting quitting 10/31/2020 Substance use: never Substance use type: does not use Living arrangements: with family Occupation/Education: occupation Gender identity (if verbalized by the patient): Female Sexual Orientation (if Verbalized by the Patient): Straight or Heterosexual Spiritual care concerns: No Exam Narrative: GENERAL: Well-appearing, well-nourished, and in no acute distress. HEAD: Normocephalic, atraumatic. EYES: PERRLA and EOMI. ENT: Nares clear, no rhinorrhea or epistaxis. Mucous membranes moist. NECK: Supple. CHEST: Clear to auscultation. No respiratory distress. HEART: Regular rate and rhythm Normal peripheral pulses. ABDOMEN: Soft, nontender, nondistended EXTREMITIES: Normal range of motion. No edema. SKIN: Warm, dry, no rash. NEURO: No focal deficits. Alert and oriented x3. PSYCH: Normal mood and affect. Course Vital Signs Vital signs: Vital Signs Temperature 98.1 F 01/16/23 13:31 Pulse Rate 90 01/16/23 13:31 Respiratory Rate 16 01/16/23 13:31 Blood Pressure 136/67 01/16/23 13:31 Pulse Oximetry 100 01/16/23 13:31 Oxygen Delivery Room Air 01/16/23 13:31 Temperature 98.1 F 01/16/23 13:31 Pulse Rate 78 01/16/23 17:37 Respiratory Rate 17 01/16/23 17:37 Blood Pressure 119/93 H 01/16/23 17:37 Pulse Oximetry 100 01/16/23 17:37 Oxygen Delivery Room Air 01/16/23 13:42 MDM - Female Genitourinary MDM Narrat
[2023-01-16 14:46] LABS: Basophils Percent Auto 0.2 % (0.2-1.2); Eosinophils Absolute Auto 0.1 K/mm3 (0-0.3); Hematocrit 39.7 % (37.0-47.0); Hemoglobin 12.6 g/dL (12.0-15.0); Immature Granulocyte Absolute 0.02 K/mm3 (0.00-0.031); Immature Granulocyte Percent A 0.2 % (0-0.5); Lymphocytes Absolute Auto 1.64 K/mm3 (0.9-3.2); Lymphocytes Percent Auto 18.8 % (18.3-44.2); Mean Corpuscular HGB Conc 31.7 g/dl (32-36); Mean Corpuscular Hemoglobin 27.8 pg (26-34); Mean Corpuscular Volume 87.4 fl (80-100); Mean Platelet Volume 10.6 fl (7.4-10.4); Monocytes Absolute Auto 0.7 K/mm3 (0.1-0.6); Monocytes Percent Auto 7.9 % (2.6-8.5); Neutrophils Absolute Auto 6.3 K/mm3 (1.3-6.7); Neutrophils Percent Auto 71.9 % (45.5-73.1); Platelet Count Result 228 k/mm3 (150-375); Red Blood Count 4.54 M/mm3 (4.2-5.4); Red Cell Distribution Width 14.6 % (11.5-14.5); White Blood Count 8.7 K/mm3 (4.5-10.0)
[2023-01-16 14:55] LABS: INR 0.9; Partial Thromboplastin Time 26.7 SECONDS (22.3-36.8); Prothrombin Time 12.6 Seconds (11.1-14.7)
[2023-01-16 14:56] LABS: Alanine Aminotransferase 21 U/L (6-35); Albumin Level 4.1 g/dL (3.5-5.1); Alkaline Phosphatase 82 U/L (38-126); Anion Gap 6 mmol/L (8-16); Aspartate Amino Transferase 24 U/L (14-36); Bilirubin,Total 0.4 mg/dL (0.2-1.3); Blood Urea Nitrogen 17 mg/dL (7-17); Calcium 8.8 mg/dL (8.4-10.2); Carbon Dioxide 27 mmol/L (22-30); Chloride 103 mmol/L (98-107); Estimated CRCL calculation 84 ml/min; Estimated Glomerular Filt Rate > 60; Glucose 105 mg/dL (65-110); Potassium 3.9 mmol/L (3.4-5.0); Sodium 136 mmol/L (137-145)
[2023-01-16] MEDS: SODIUM CHLORIDE 0.9% IV 1,000 ML 999 ML IV CONT (14:56)
[2023-01-16] MEDS: KETOROLAC 15 MG/ML VIAL (*BKC) IV PUSH (14:56)
[2023-01-16 14:57] VITALS: BP 140/79; PULSE 83; RESP 18; O2SAT 100
[2023-01-16 15:08] LABS: Appearance Urine Slightly Cloudy (Clear); Bilirubin Urine Negative (Negative); Blood Urine 2+ (Negative); Color Urine Red (Yellow); Glucose Urine UA Negative (Negative); Ketones Urine Negative (Negative); Leukocyte Esterase Ur Negative LEU/UL (Negative); Nitrate Urine Negative (Negative); Protein Urine 1+ mg/dL (Negative); Specific Grav Ur 1.025 (1.001-1.035); Urobilinogen Urine 0.2 mg/dL (<2.0)
[2023-01-16 15:12] LABS: Bacteria Urine None Seen /hpf; Non Pathogenic Casts 0-2; RBC Urine >100 /hpf (0-2); Squamous Epithelial Cell Urine None seen /hpf (Few); WBC Urine 21-50 /hpf
[2023-01-16 15:18] LABS: Add Urine Microscopic? YES
[2023-01-16 16:14] LABS: Beta HCG Quantitative < 2.39 mIU/ML
[2023-01-16 17:37] VITALS: BP 119/93; PULSE 78; RESP 17; O2SAT 100
== END 2023-01-16 18:23 | disposition home or self-care (01) ==
PROVIDERS: Emergency Provider Emergency Medicine; PCP Internal Medicine Gastroenterology
DX: N93.8 Other specified abnormal uterine and vaginal bleeding (principal); Z87.891 Personal history of nicotine dependence
CPT/HCPCS: 36415; 80053; 81001; 84702; 85025; 85610; 85730; 86850; 86900; 86901; 87086; 87088; 87147; 96361; 96374; 99284; J1885; J7030

== ENCOUNTER 2023-04-24 15:10 | Outpatient (CLI) | payer OTHER, SELFPAY ==
--- NOTE | ~2023-04-24 | US_ITS ---
EXAMINATION: US OB <=14 wk fetus w TV DATE: 04/24/2023 16:14 INDICATION: Left-sided pelvic pain. TECHNIQUE: Real-time pelvic ultrasound utilizing both a transvaginal and transabdominal probe was pe rformed. The interpreting radiologist was not present for the study. COMPARISON: None. FINDINGS: The uterus measures 8.5 x 4.2 x 4.9 cm. The endometrial complex measures 4 mm with no discernible int rauterine gestational sac. The right ovary measures 3.4 x 1.4 x 1.2 cm. The left ovary measures 3.2 x 2.0 x 1.9 cm. Vascular radha w is identified on color Doppler at both ovaries. No abnormal adnexal masses. There is no free fluid in the pelvis. IMPRESSION: 1. Normal pelvic ultrasound with no evident gestational sac. In the setting of a positive beta hCG th e differential would include early, failed or ectopic . Reviewed, dictated and finalized at location A. IMPRESSION: 1. Normal pelvic ultrasound with no evident gestational sac. In the setting of a positive beta hCG the differential would include early, failed or ectopic pre gnancy.
== END 2023-04-24 15:11 | disposition home or self-care (01) ==
PROVIDERS: PCP Internal Medicine Gastroenterology; Visit Provider Obstetrics & Gynecology Gynecology
DX: R10.12 Left upper quadrant pain (principal); Z87.59 Personal history of other complications of pregnancy, childbirth and the puerperium
CPT/HCPCS: 76801; 76817

== ENCOUNTER 2023-04-28 23:58 | Emergency (ER) | payer OTHER, SELFPAY ==
--- NOTE | ~2023-04-28 | US_ITS ---
Pelvic ultrasound. Clinical History: Right-sided pelvic pain, first trimester COMPARISON: 04/24/2023 Technique: Realtime transabdominal and transvaginal scanning of the pelvis was performed. Color flow Doppler and Doppler spectral analysis were performed. Findings: The uterus is anteverted. The endometrial stripe has a thickness of 4 mm. No intrauterine gestational sac is identified. The right ovary measures 4.5 x 1.5 x 1.6 cm. No significant right ovarian or adnexal mass is seen. The left ovary measures 2.3 x 1.5 x 1.7 cm. No significant left ovarian or adnexal mass is seen. Vascular flow present in both ovaries on Doppler spectral analysis. There is no evidence of free fluid in the cul de sac. Impression: Positive test without intrauterine gestation. Differential diagnosis includes early normal , spontaneous , or nonvisualized ectopic . Correlate clinically. Continued follow-up with serial beta hCG, and repeat ultrasound as warranted, is advised. No evidence for ovarian torsion. Reviewed, dictated and finalized at [facility]. Impression: Positive test without intrauterine gestation. Differential diagnosis includes early normal , spontaneous , or nonvisualized ectopic . Correlate clinically. Continued follow-up with serial beta hCG, and repeat ultrasound as warranted, is advised. No evidence for ovarian torsion.
[2023-04-29] VITALS (22 sets, daily range): BP systolic 107–145; BP diastolic 82–90; PULSE 61–84; RESP 12–22; TEMP 36.2; O2SAT 99–100
[2023-04-29] MEDS: SODIUM CHLORIDE 0.9% IV 1,000 ML 999 ML IV CONT (01:08)
[2023-04-29] MEDS: MORPHINE SULFATE (*CRX) 4 MG/ML INJ 2 MG IV PUSH (01:09)
[2023-04-29 01:16] LABS: Basophils Percent Auto 0.3 % (0.2-1.2); Eosinophils Absolute Auto 0.1 K/mm3 (0-0.3); Eosinophils Percent Auto 1.6 % (0-4.4); Hematocrit 36.8 % (37.0-47.0); Hemoglobin 11.9 g/dL (12.0-15.0); Immature Granulocyte Absolute 0.03 K/mm3 (0.00-0.031); Immature Granulocyte Percent A 0.3 % (0-0.5); Lymphocytes Absolute Auto 2.31 K/mm3 (0.9-3.2); Lymphocytes Percent Auto 25.7 % (18.3-44.2); Mean Corpuscular HGB Conc 32.3 g/dl (32-36); Mean Corpuscular Hemoglobin 28.3 pg (26-34); Mean Corpuscular Volume 87.6 fl (80-100); Mean Platelet Volume 10.4 fl (7.4-10.4); Monocytes Absolute Auto 0.8 K/mm3 (0.1-0.6); Monocytes Percent Auto 8.8 % (2.6-8.5); Neutrophils Absolute Auto 5.7 K/mm3 (1.3-6.7); Neutrophils Percent Auto 63.3 % (45.5-73.1); Platelet Count Result 232 k/mm3 (150-375); Red Cell Distribution Width 14.1 % (11.5-14.5)
[2023-04-29 01:28] LABS: Alanine Aminotransferase 21 U/L (6-35); Albumin Level 3.8 g/dL (3.5-5.1); Alkaline Phosphatase 70 U/L (38-126); Anion Gap 12 mmol/L (8-16); Aspartate Amino Transferase 24 U/L (14-36); Bilirubin,Total 0.2 mg/dL (0.2-1.3); Blood Urea Nitrogen 16 mg/dL (7-17); Calcium 8.7 mg/dL (8.4-10.2); Carbon Dioxide 27 mmol/L (22-30); Chloride 97 mmol/L (98-107); Estimated CRCL calculation 90 ml/min; Estimated Glomerular Filt Rate > 60; Glucose 125 mg/dL (65-110); Potassium 3.8 mmol/L (3.4-5.0); Sodium 136 mmol/L (137-145)
[2023-04-29 01:43] LABS: Beta HCG Quantitative 53.41 mIU/ML
--- NOTE | 2023-04-29 02:41 | ED.GENADULT ---
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 The patient reports that she has been followed on her serial hCGs for some time and has had a level with a maximum in the 90s the patient states that she had an ultrasound that did not show any intrauterine reports she has prior history of an ectopic and also history of a miscarriage patient states a little bit of spotting today reports that she is AB+ blood type patient states she is concerned that she may have an ovarian torsion or an ectopic. Related Data Home Medications Medication Instructions Recorded Confirmed hydroxyzine HCl 25 mg tablet 25 mg PO HS 05/02/20 10/12/22 quetiapine 25 mg tablet 25 mg PO HS 10/12/22 10/12/22 Allergies Allergy/AdvReac Type Severity Reaction Status Date / Time hydrocodone AdvReac Mild Vomiting Verified 01/16/23 13:45 tramadol AdvReac Unknown ANXIETY/HEART Verified 01/16/23 13:45 RACING Review of Systems Review of Systems: A 10 system review of systems was completed on the patient and is negative except for what is stated in the HPI. Nursing and ancillary documentation was reviewed. [facility] Past Medical History Medical History Anxiety Asthma Bipolar 1 disorder COVID-19 Ectopic treated with methotrexate Menorrhagia Migraine Morbid obesity (normal spontaneous vaginal delivery) PCOS (polycystic ovarian syndrome) Surgical History Surgical History History of adenoidectomy History of dental surgery Hx of tonsillectomy Family History Family History Father Unknown family medical history Mother Hypertension Breast cancer Lupus (systemic lupus erythematosus) Social History Social History Smoking status: Former smoker Tobacco type: cigarettes Second hand tobacco smoke exposure: No ([facility] reports being a light smoker when drinking) Alcohol intake: former Drinks per week: 1 Alcohol use details: reporting quitting 10/31/2020 Substance use: never Substance use type: does not use Living arrangements: with family Occupation/Education: occupation Gender identity (if verbalized by the patient): Female Sexual Orientation (if Verbalized by the Patient): Straight or Heterosexual Spiritual care concerns: No Exam Narrative: GENERAL: Well-appearing, well-nourished, and in no acute distress. HEAD: Normocephalic, atraumatic. EYES: PERRLA and EOMI. ENT: Nares clear, no rhinorrhea or epistaxis. Mucous membranes moist. NECK: Supple. CHEST: Clear to auscultation. No respiratory distress. HEART: Regular rate and rhythm. No murmur heard. Normal peripheral pulses. ABDOMEN: Soft, tenderness to palpation in the right lower quadrant, nondistended, normal active bowel sounds. EXTREMITIES: Normal range of motion. No edema. SKIN: Warm, dry, no rash. NEURO: No focal deficits. Alert and oriented x3. PSYCH: Normal mood and affect. Course Vital Signs Vital signs: Vital Signs Temperature 36.2 C L 04/29/23 00:00 Pulse Rate 84 04/29/23 00:00 Respiratory Rate 14 04/29/23 00:00 Blood Pressure 145/82 H 04/29/23 00:00 Pulse Oximetry 100 04/29/23 00:00 Oxygen Delivery Room Air 04/29/23 00:00 Temperature 36.2 C L 04/29/23 00:00 Pulse Rate 84 04/29/23 00:00 Respiratory Rate 14 04/29/23 00:00 Blood Pressure 145/82 H 04/29/23 00:00 Pulse Oximetry 100 04/29/23 00:00 Oxygen Delivery Room Air 04/29/23 00:00 Medical Decision Making MDM Narrative Medical dec
== END 2023-04-29 06:29 | disposition home or self-care (01) ==
PROVIDERS: Emergency Provider Emergency Medicine; PCP Internal Medicine Gastroenterology
DX: O03.9 Complete or unspecified spontaneous abortion without complication (principal); E28.2 Polycystic ovarian syndrome; E66.01 Morbid (severe) obesity due to excess calories; F31.9 Bipolar disorder, unspecified; F41.9 Anxiety disorder, unspecified; Z86.16 Personal history of COVID-19; Z87.891 Personal history of nicotine dependence
CPT/HCPCS: 36415; 76801; 76817; 80053; 84702; 85025; 96361; 96374; 99284; J2270; J7030

== ENCOUNTER 2023-05-08 18:46 | Emergency (ER) | payer OTHER, SELFPAY ==
--- NOTE | 2023-05-08 19:00 | ED.ANIMALBIT ---
HPI - Animal Bite General Chief Complaint: Animal Bite Stated Complaint: DOG BITE Time Seen by Provider: 05/08/23 19:15 Source: patient and RN notes reviewed Mode of arrival: ambulatory Limitations: no limitations History of Present Illness HPI narrative: 37-year-old female presents with concern for dog bite to the back of her left lower leg. She reports she got bit last night by a dog that is known to her. She reports 3 puncture wounds to the back of her leg. Reports they became more painful today, swollen, red. She denies drainage. complaint: animal bite Related Data Home Medications Medication Instructions Recorded Confirmed hydroxyzine HCl 25 mg tablet 25 mg PO HS 05/02/20 05/08/23 Allergies Allergy/AdvReac Type Severity Reaction Status Date / Time hydrocodone AdvReac Mild Vomiting Verified 05/08/23 19:19 tramadol AdvReac Unknown ANXIETY/HEART Verified 05/08/23 19:19 RACING Review of Systems Review of Systems: CONSTITUTIONAL: Denies malaise, chills, sweats, or fever. SKIN: Reports dog bite to the back of her left lower leg MUSCULOSKELETAL: Denies muscle skeletal pain NEUROLOGIC: Denies numbness, weakness All systems reviewed & are unremarkable except as noted in HPI and below PMFSH Past Medical History Medical History Anxiety Asthma Bipolar 1 disorder COVID-19 Ectopic treated with methotrexate Menorrhagia Migraine Morbid obesity (normal spontaneous vaginal delivery) PCOS (polycystic ovarian syndrome) Surgical History Surgical History History of adenoidectomy History of dental surgery Hx of tonsillectomy Family History Family History Father Unknown family medical history Mother Hypertension Breast cancer Lupus (systemic lupus erythematosus) Social History Social History Smoking status: Former smoker Tobacco type: cigarettes Second hand tobacco smoke exposure: No (Holly reports being a light smoker when drinking) Alcohol intake: former Drinks per week: 1 Alcohol use details: reporting quitting 10/31/2020 Substance use: never Substance use type: does not use Living arrangements: with family Occupation/Education: occupation Gender identity (if verbalized by the patient): Female Sexual Orientation (if Verbalized by the Patient): Straight or Heterosexual Spiritual care concerns: No Comments At time of signature, agree with nursing past medical, surgical, social and family history. There is no relevant family history pertinent to the presenting complaint Exam Narrative: GENERAL: Well-appearing, well-nourished, and in no acute distress. HEAD: Normocephalic, atraumatic. EYES: PERRLA, conjunctivae clear, and EOMI. ENT: Mucous membranes moist. Oropharynx without edema, erythema or lesions. NECK: Supple. No lymphadenopathy CHEST: Clear to auscultation. No respiratory distress. HEART: Regular rate and rhythm. SKIN: Warm, dry. Three scabbed puncture wounds noted to the posterior left lower leg below the knee with surrounding erythema, induration, tenderness approximately 2 cm in diameter NEURO: Alert and oriented x3. PSYCH: Normal mood and affect Course Course Emergency Course: Patient is aware of diagnosis, understands and agrees to treatment plan. Anticipatory guidance given. Patient agrees to follow-up as directed and is aware of reasons to seek care at the emergency department. Portions of this record may have been created with voice recognition software Level of Care: Express Care Visit Vital Signs Vital signs: Reviewed. MDM - Animal Bite MDM Narrative Medical decision making narrative: Exam findings show no acute concerns or changes; patient is non-toxic appearing and is
[2023-05-08 19:01] VITALS: BP 126/86; PULSE 87; RESP 16; TEMP 36.6; O2SAT 100
== END 2023-05-08 19:25 | disposition home or self-care (01) ==
PROVIDERS: Emergency Provider Nurse Practitioner; PCP Internal Medicine Gastroenterology
DX: S81.831A Puncture wound without foreign body, right lower leg, initial encounter (principal); W54.0XXA Bitten by dog, initial encounter; Z87.891 Personal history of nicotine dependence; J45.909 Unspecified asthma, uncomplicated; E66.01 Morbid (severe) obesity due to excess calories; Z68.41 Body mass index [BMI] 40.0-44.9, adult; E28.2 Polycystic ovarian syndrome; F41.9 Anxiety disorder, unspecified; Z86.16 Personal history of COVID-19
CPT/HCPCS: 99213; G0463

== ENCOUNTER 2023-05-23 15:54 | Outpatient (CLI) | payer OTHER, SELFPAY | END 2023-05-23 15:55 | disposition home or self-care (01) | LOC: ANHLAB 15:56 | PROVIDERS: PCP Internal Medicine Gastroenterology; Visit Provider Obstetrics & Gynecology Gynecology | DX: Z01.818 Encounter for other preprocedural examination (principal) | CPT/HCPCS: 36415; 84702; 85461; 86850; 86900; 86901 ==

== ENCOUNTER 2023-05-30 00:59 | Day surgery (SDC) | payer OTHER, SELFPAY ==
[2023-05-23 15:30] VITALS: BMI 45.7
--- NOTE | 2023-05-23 15:36 | PC.NURSE ---
Report to the Outpatient Waiting Room, entrance under the green pavilion located off [facility], at time 0600 on date 05/30/23. Planned Procedure Time: 0730. Time changes happen often and if your time is changed the preop area will call you the afternoon before. - You and your visitor will be asked to self-screen and do not enter if you have any COVID symptoms. - A mask is optional within the hospital at this time. Patients may have clear liquids (water, carbonated beverages, clear teas, apple juice) until 3 hours prior to surgery with a maximum of 20 ounces. - No food from midnight until time of surgery Take the following medications with a SIP of water the morning of surgery: NONE DO NOT STOP ANY OF YOUR OTHER PRESCRIPTION MEDICATIONS PRIOR TO SURGERY ?EXCEPT THE FOLLOWING Medications to discontinue per physician: N/A Date to take last dose: N/A Please no make-up, nail wolof, hairspray, perfume, deodorant, or body powder the day of surgery. No jewelry (including any body piercings) or valuables the day of surgery, leave them at home. Please take a shower or bath the night before, or the morning of, surgery with an antibacterial soap. Wear comfortable, loose fitting clothing. - Jewelry must be removed prior to entering the operating room. Rings and piercings that are not removed may be cut off. - The hospital will not accept responsibility for valuables. - Please leave all valuables, including medications, at home the day of surgery. If you are going home after surgery, a licensed front load trash truck driver must drive you home. - NO public transportation without another adult if you receive anesthesia. - We recommend that an adult stay with you for 24 hours following discharge. - We also recommend that you do not drive, make important decision, drink alcoholic beverages, or take any drugs that were not prescribed by your health care provider for at least 24 hours after your discharge time. Follow any additional instructions given to you from your surgeon. If you or anyone in your household have experienced Covid symptoms in the past week, please notify your surgeon or the nurse liaison at the phone number below for possible testing. Telephone instructions given to PT - ABRAHAM MATTHEWS and asked if any additional questions and then verbalized understanding. Patient advised to call surgeon office or pre surgery nurse liaison [phone] if any additional questions.
[2023-05-30 06:19] VITALS: BP 128/86; PULSE 78; RESP 16; TEMP 36.6; O2SAT 99
--- NOTE | 2023-05-30 06:46 | P.PNAN_ITS ---
Anes - Initial Pre Proc Eval Procedure: Operation Date: 05/30/23 07:30 Proposed Procedures p Suction Dilation and Curettage - Rae Corbett MD Date/Time: 05/30/23 06:46 Surgeon: Rae Corbett MD Pre Op Diagnosis: incomplete Miscarriage Patient Data Age: 37 Gender: F Height: 1.57 m Weight: 113.4 kg Allergies Allergy/AdvReac Type Severity Reaction Status Date / Time hydrocodone AdvReac Mild Vomiting Verified 05/23/23 15:29 tramadol AdvReac Unknown ANXIETY/HEART Verified 05/23/23 15:29 RACING Home Medications Medication Instructions Recorded Confirmed Type hydroxyzine HCl 25 mg tablet 25 mg PO HS 05/02/20 05/23/23 History Patient hx anesthesia problems: none Family hx anesthesia problems: none Results Review: All pre-operative results and documents have been reviewed as part of the pre- operative evaluation. [facility] Past Medical History Medical History Anxiety Asthma Bipolar 1 disorder COVID-19 Ectopic treated with methotrexate Menorrhagia Migraine Morbid obesity (normal spontaneous vaginal delivery) PCOS (polycystic ovarian syndrome) Surgical History Surgical History History of adenoidectomy History of dental surgery Hx of tonsillectomy Family History Family History Father Unknown family medical history Mother Hypertension Breast cancer Lupus (systemic lupus erythematosus) Social History Social History Smoking status: Never smoker Tobacco type: cigarettes Second hand tobacco smoke exposure: No (Holly reports being a light smoker when drinking) Alcohol intake: current Drinks per week: 2 Alcohol use details: reporting quitting 10/31/2020 Substance use: never Substance use type: does not use Living arrangements: with family Additional living arrangements comments: DAUGHTER Occupation/Education: occupation Gender identity (if verbalized by the patient): Female Sexual Orientation (if Verbalized by the Patient): Straight or Heterosexual Spiritual care concerns: No Anes - Eval Final PreProcedure Day of Procedure 05/30/23 06:46 Patient weight: morbidly obese Heart: regular rate and rhythm Lungs: clear to auscultation Airway: Mallampati scale class II Neurological: alert and oriented Last oral intake: >/= 8 hours ASA classification: III Emergent: no Anesthetic plan: proceed Anesthesia type and monitoring: general GIVS and standard monitoring Results Review: All pre-operative results and documents have been reviewed as part of the pre- operative evaluation. Informed Consent: The patient's anesthetic plan and its attendant risks and benefits were discuss ed with the patient/family/POA. Questions were solicited and answers provided to the satisfaction of the patient/family/POA.
[2023-05-30] MEDS: LACTATED RINGERS 1,000 ML 30 ML IV CONT (06:55)
[2023-05-30] MEDS: ACETAMINOPHEN 500 MG TABLET 1000 MG PO (06:55)
--- NOTE | 2023-05-30 07:38 | WPDHPUPDATE1 ---
History and Physical Update Update Date/Time: 05/30/23 07:38 History and Physical has been reviewed, including an updated exam of the patient. There are NO changes in the patient's condition. Risks, benefits, and alternatives have been discussed and questions answered. Patient agrees to proceed with procedure.
--- NOTE | 2023-05-30 07:38 | PM.HPGS ---
History of Present Illness History of Present Illness Consent: Risks, benefits, and alternatives have been discussed and questions answered. Patient agrees to proceed with procedure. Chief complaint: incomplete Miscarriage Narrative: Holly Lyles is a 37 year old female with bleeding since approximately 5 weeks estimated gestational age. HCGs have been slowly dropping. Ultrasound showed no heart tones. Options were discussed with the patient. Plan is to proceed with suction D&C. Risks of infection, bleeding, and perforation are reviewed. Patient agreed and voices understanding and agrees to proceed. Review of Systems Review of Systems: not repeated day of surgery; patient states no changes in status PMFSH Past Medical History Medical History Anxiety Asthma Bipolar 1 disorder COVID-19 Ectopic treated with methotrexate Menorrhagia Migraine Morbid obesity (normal spontaneous vaginal delivery) PCOS (polycystic ovarian syndrome) Surgical History Surgical History History of adenoidectomy History of dental surgery Hx of tonsillectomy Family History Family History Father Unknown family medical history Mother Hypertension Breast cancer Lupus (systemic lupus erythematosus) Social History Social History Smoking status: Never smoker Tobacco type: cigarettes Second hand tobacco smoke exposure: No (Holly reports being a light smoker when drinking) Alcohol intake: current Drinks per week: 2 Alcohol use details: reporting quitting 10/31/2020 Substance use: never Substance use type: does not use Living arrangements: with family Additional living arrangements comments: DAUGHTER Occupation/Education: occupation Gender identity (if verbalized by the patient): Female Sexual Orientation (if Verbalized by the Patient): Straight or Heterosexual Spiritual care concerns: No Meds Home Medications and Allergies Home Medications Medication Instructions Recorded Confirmed Type hydroxyzine HCl 25 mg tablet 25 mg PO HS 05/02/20 05/30/23 History Allergies Allergy/AdvReac Type Severity Reaction Status Date / Time hydrocodone AdvReac Mild Vomiting Verified 05/30/23 07:34 tramadol AdvReac Unknown ANXIETY/HEART Verified 05/30/23 07:34 RACING Vital Signs Vital Signs - 24 hr 05/30/23 06:19 Temperature 97.9 F Pulse Rate 78 Respiratory Rate 16 Blood Pressure 128/86 Pulse Oximetry 99 Oxygen Delivery Room Air Exam Const: General: healthy appearing and alert Orientation/consciousness: patient oriented x3 Resp: Effort & Inspection: normal respiratory effort : External Female Exam: normal external appearance Speculum Exam - Vagina: normal appearance of the vagina and normal vaginal discharge Speculum Exam - Cervix: normal appearance of the cervix Bimanual exam- vagina & uterus: uterine size normal and consistency normal Bimanual Exam- Adnexa, other: normal adnexae and No adnexal tenderness Neuro: General: patient oriented x3 Assessment and Plan Assessment and plan (1) Incomplete spontaneous : Code(s): O03.4 - Incomplete spontaneous without complication Status: Acute Assessment and Plan: Plan to proceed with suction D&C
[2023-05-30] MEDS: LIDOCAINE HCL 1% LOCAL INJ 20 ML VIAL 10 ML INFILTRATE (08:05)
--- NOTE | 2023-05-30 08:12 | W.PM.PROC2 ---
Procedure Note - Detailed Date of Procedure 05/30/23 Pre-op Diagnosis Incomplete spontaneous Post-op Diagnosis Same Procedure Performed Suction D&C Surgeon Rae Corbett MD Anesthesia MAC and Local Findings Uterus initially sounds to 10cm and at the end of the case sounds to 7cm. Minimal products of conception. Description of Procedure The patient is taken to the operating room and placed under anesthesia in the dorsal lithotomy position. She was prepped and draped in usual sterile fashion. Nisula speculum was placed in the vagina and the cervix grasped on the anterior lip with a tenaculum. The cervix is injected in each quadrant with 1% lidocaine. The uterus is sounded to 10cm. The cervix is serially dilated to an 8 Hegar. The 8mm curved suction curette is used to evacuate the uterus. Once no further products were noted in the tubing, the sharp curette is used. No further products were noted so one additional pass is taken with the suction curette. The uterus was resounded to 7cm. All instruments are removed. Sponge, needle, and instrument counts are correct per the OR staff. Patient is awakened from anesthesia and taken to recovery in stable condition. Estimated Blood Loss 5 Drains No Packing No Pathology Yes (Products of conception) Complications No immediate complications Condition Stable Disposition PACU
[2023-05-30 08:17] VITALS: BP 132/95; PULSE 108; RESP 14; O2SAT 98
[2023-05-30] MEDS: fentaNYL CITRATE INJ (*CRX) 100 MCG/2 ML VIAL 25 MCG IV PUSH ×4 (08:23→08:32)
[2023-05-30] MEDS: KETOROLAC 15 MG/ML VIAL (*BKC) IV PUSH (08:25)
[2023-05-30 08:45] VITALS: BP 126/89; PULSE 85; RESP 14; O2SAT 100
[2023-05-30 09:10] VITALS: BP 141/93; PULSE 77; RESP 14; O2SAT 98
== END 2023-05-30 09:25 | disposition home or self-care (01) ==
PROVIDERS: PCP Internal Medicine Gastroenterology; Visit Provider Obstetrics & Gynecology Gynecology
PROC: (CPT 59812; principal; 2023-05-30 07:30)
DX: O03.4 Incomplete spontaneous abortion without complication (principal); F31.9 Bipolar disorder, unspecified; F41.9 Anxiety disorder, unspecified
CPT/HCPCS: 59812; 88305; A9270; J1885; J2250; J2704; J3010; J7120

== ENCOUNTER 2023-06-07 14:26 | Outpatient (RCR) | payer OTHER, SELFPAY ==
[2023-05-02 14:27] LABS: Beta HCG Quantitative 67.59 mIU/ML
[2023-05-09 10:54] LABS: Beta HCG Quantitative 50.59 mIU/ML
[2023-05-16 09:58] LABS: Beta HCG Quantitative 54.91 mIU/ML
[2023-05-23 16:45] LABS: Beta HCG Quantitative 29.83 mIU/ML
[2023-06-07 15:55] LABS: Beta HCG Quantitative < 2.39 mIU/ML
== END 2023-07-31 23:59 | disposition home or self-care (01) ==
LOC: ANHLAB 14:26
PROVIDERS: PCP Internal Medicine Gastroenterology; Visit Provider Obstetrics & Gynecology Gynecology
DX: O02.1 Missed abortion (principal)
CPT/HCPCS: 36415; 84702

== ENCOUNTER 2023-07-31 16:22 | Emergency (ER) | payer OTHER, SELFPAY ==
--- NOTE | ~2023-07-31 | XR_ITS ---
EXAM: XR knee RT 3V DATE: 07/31/2023 17:01 HISTORY: posterior knee pain x 2 days, no inj . COMPARISON: X-ray tib-fib 03/08/2008. FINDINGS: Normal mineralization. No fracture or dislocation. No lytic or blastic lesion. Mild degene rative changes. No erosion or periosteal change. Soft tissues within normal limits. IMPRESSION: No acute osseous finding in the right knee. Reviewed, dictated and finalized at location K. R
[2023-07-31 16:29] VITALS: BP 117/90; PULSE 90; RESP 16; TEMP 36.6; O2SAT 100
--- NOTE | 2023-07-31 16:54 | ED.EXTPRO ---
HPI - Extremity Problem General Chief complaint: Extremity Injury, Lower Stated complaint: INJURED R LEG Time Seen by Provider: 07/31/23 16:41 Source: patient and RN notes reviewed Mode of arrival: ambulatory Limitations: no limitations History of Present Illness HPI Narrative: Patient presents today complaining of right posterior knee pain times 2-3 days. Denies any known injury or trauma, other than falling 2 weeks ago. She did not have any pain immediately following the fall. Currently rates her pain 6/10 and has been taking Tylenol and ibuprofen with mild relief. Denies numbness or tingling in the leg or foot. States she feels instability in the knee with ambulation. Related Data Home Medications Medication Instructions Recorded Confirmed hydroxyzine HCl 25 mg tablet 25 mg PO HS 05/02/20 07/31/23 Allergies Allergy/AdvReac Type Severity Reaction Status Date / Time hydrocodone AdvReac Mild Vomiting Verified 07/31/23 16:38 tramadol AdvReac Unknown ANXIETY/HEART Verified 07/31/23 16:38 RACING Review of Systems Review of Systems: CONSTITUTIONAL: Denies body aches, fever, chills, or sweats. EYES: Denies visual changes, redness, or discharge. ENT: Denies rhinorrhea, congestion, sore throat, or otalgia. CARDIOVASCULAR: Denies chest pain, palpitations, or edema. RESPIRATORY: Denies cough or dyspnea. GASTROINTESTINAL: Denies abdominal pain, nausea, vomiting, or diarrhea. GENITOURINARY: Denies dysuria or hematuria. SKIN: Denies rash, itching, or wounds. MUSCULOSKELETAL: Denies back pain, or myalgia.+ right knee pain NEUROLOGIC: Denies headache, numbness, tingling, or weakness. PSYCH: Denies depression or anxiety. [facility] Past Medical History Medical History Anxiety Asthma Bipolar 1 disorder COVID-19 Ectopic treated with methotrexate Menorrhagia Migraine Morbid obesity (normal spontaneous vaginal delivery) PCOS (polycystic ovarian syndrome) Surgical History Surgical History History of adenoidectomy History of dental surgery Hx of tonsillectomy Family History Family History Father Unknown family medical history Mother Hypertension Breast cancer Lupus (systemic lupus erythematosus) Social History Social History Smoking status: Never smoker Tobacco type: cigarettes Second hand tobacco smoke exposure: No (Holly reports being a light smoker when drinking) Alcohol intake: current Drinks per week: 2 Alcohol use details: reporting quitting 10/31/2020 Substance use: never Substance use type: does not use Living arrangements: with family Additional living arrangements comments: DAUGHTER Occupation/Education: occupation Gender identity (if verbalized by the patient): Female Sexual Orientation (if Verbalized by the Patient): Straight or Heterosexual Spiritual care concerns: No Comments At time of signature, I have reviewed and agree with nursing past medical, surgical, social and family history unless otherwise noted. Please see nursing chart for further information. There is no relevant family history pertinent to the presenting complaint Exam Narrative: GENERAL: Well-appearing, well-nourished, and in no acute distress. HEAD: Normocephalic, atraumatic. EYES: EOMI. No redness or drainage. Conjunctivae normal. ENT: Mucous membranes pink and moist. NECK: Normal AROM. CHEST: No respiratory distress. EXTREMITIES: Right knee: Tenderness posteriorly with likely mild edema. No erythema, increased warmth, ecchymosis. No tenderness to the anterior, medial, or lateral knee. Pain with range of motion. Distal sensation intact. Capillary refill. Pedal pulse normal. Color normal. SKIN: Warm, dry, no rash. Capill
--- NOTE | 2023-07-31 17:33 | PC.NURSE ---
+PMS POST [facility] APPLICATION
== END 2023-07-31 17:25 | disposition home or self-care (01) ==
PROVIDERS: Emergency Provider Nurse Practitioner; PCP Internal Medicine Gastroenterology
DX: M25.561 Pain in right knee (principal); Z87.891 Personal history of nicotine dependence; J45.909 Unspecified asthma, uncomplicated; E66.01 Morbid (severe) obesity due to excess calories; Z68.42 Body mass index [BMI] 45.0-49.9, adult; E28.2 Polycystic ovarian syndrome; F41.9 Anxiety disorder, unspecified; Z86.16 Personal history of COVID-19
CPT/HCPCS: 73562; 99213; G0463

== ENCOUNTER 2023-08-01 10:31 | Outpatient (CLI) | payer OTHER, SELFPAY ==
[2023-08-01 15:15] LABS: Partial Thromboplastin Time 29.5 SECONDS (22.3-36.8)
[2023-08-01 18:03] LABS: Hemoglobin A1C 5.1 % (<5.7)
[2023-08-01 18:38] LABS: Free T4 Free Thyroxine 1.05 ng/mL (0.78-2.19)
[2023-08-04 05:01] LABS: Progesterone 0.4 ng/mL (***); Prolactin 7.5 ng/mL (***)
[2023-08-04 05:32] LABS: Lupus dRVVT Screen 39 sec (<=45); PTT-LA Screen 34 sec (<=40)
[2023-08-04 05:50] LABS: Anti Cardio Antibody IgM 2.4 MPL-U/mL (<20.0); Anti Cardiolipin Antibody IgG <2.0 GPL-U/mL (<20.0)
[2023-08-05 20:27] LABS: Anti-Thrombin III Antigen 97 % normal (80-120)
[2023-08-07 11:59] LABS: Protein C Antigen 111 % normal (70-140)
[2023-08-07 15:34] LABS: Factor V (Leiden) Mutation NEGATIVE
== END 2023-08-01 10:32 | disposition home or self-care (01) ==
PROVIDERS: PCP Internal Medicine Gastroenterology; Visit Provider Obstetrics & Gynecology Gynecology
DX: N96 Recurrent pregnancy loss (principal); Q99.9 Chromosomal abnormality, unspecified
CPT/HCPCS: 36415; 81240; 81241; 81291; 83036; 84144; 84146; 84439; 84443; 85301; 85302; 85303; 85305; 85306; 85613; 85730; 86038; 86146; 86147; 88230; 88262

== ENCOUNTER 2023-08-07 15:58 | Emergency (ER) | payer OTHER, SELFPAY ==
--- NOTE | ~2023-08-07 | XR_ITS ---
EXAM: XR knee RT min 4V DATE: 08/07/2023 17:48 HISTORY: RIGHT KNEE PAIN WITH SWELLING, HX FLUID DRAINED FROM RT KNEE . COMPARISON: 07/31/2023. FINDINGS: Normal mineralization. No fracture or dislocation. No lytic or blastic lesion. Joint space s are maintained. No erosion or periosteal change. Soft tissues within normal limits. Moderate volume joint fluid. IMPRESSION: No acute osseous finding in the right knee. Moderate right knee joint effusion. Reviewed, dictated and finalized at location K. NING RN IMPRESSION: No acute osseous finding in the right knee. Moderate right knee arianna nt effusion.
[2023-08-07 16:39] VITALS: BP 148/89; PULSE 77; RESP 16; TEMP 37; O2SAT 99
--- NOTE | 2023-08-07 19:15 | ED.LOWEXIN ---
HPI - Extremity Injury (Lower) General Chief Complaint: Extremity Injury, Lower Stated Complaint: swelling to right thigh/knee Time Seen by Provider: 08/07/23 19:15 Source: patient Related Data Home Medications Medication Instructions Recorded Confirmed hydroxyzine HCl 25 mg tablet 25 mg PO HS 05/02/20 07/31/23 Allergies Allergy/AdvReac Type Severity Reaction Status Date / Time hydrocodone AdvReac Mild Vomiting Verified 08/07/23 16:41 tramadol AdvReac Unknown ANXIETY/HEART Verified 08/07/23 16:41 RACING PMFSH Past Medical History Medical History Anxiety Asthma Bipolar 1 disorder COVID-19 Ectopic treated with methotrexate Menorrhagia Migraine Morbid obesity (normal spontaneous vaginal delivery) PCOS (polycystic ovarian syndrome) Surgical History Surgical History History of adenoidectomy History of dental surgery Hx of tonsillectomy Family History Family History Father Unknown family medical history Mother Hypertension Breast cancer Lupus (systemic lupus erythematosus) Social History Social History Smoking status: Never smoker Tobacco type: cigarettes Second hand tobacco smoke exposure: No (Holly reports being a light smoker when drinking) Alcohol intake: current Drinks per week: 2 Alcohol use details: reporting quitting 10/31/2020 Substance use: never Substance use type: does not use Living arrangements: with family Additional living arrangements comments: DAUGHTER Occupation/Education: occupation Gender identity (if verbalized by the patient): Female Sexual Orientation (if Verbalized by the Patient): Straight or Heterosexual Spiritual care concerns: No Course Vital Signs Vital signs: Vital Signs Temperature 37.0 C 08/07/23 16:39 Pulse Rate 77 08/07/23 16:39 Respiratory Rate 16 08/07/23 16:39 Blood Pressure 148/89 H 08/07/23 16:39 Pulse Oximetry 99 08/07/23 16:39 Temperature 37.0 C 08/07/23 16:39 Pulse Rate 77 08/07/23 16:39 Respiratory Rate 16 08/07/23 16:39 Blood Pressure 148/89 H 08/07/23 16:39 Pulse Oximetry 99 08/07/23 16:39 Discharge Plan Discharge Prescriptions: No Action hydroxyzine HCl 25 mg tablet 25 mg PO HS Follow-up/Referrals: Elton,Adilia Ramirez MD [Primary Care Provider] -
--- NOTE | 2023-08-07 20:00 | ED.LOWEXIN ---
HPI - Extremity Injury (Lower) General Chief Complaint: Extremity Injury, Lower Stated Complaint: swelling to right thigh/knee Time Seen by Provider: 08/07/23 19:15 History of Present Illness HPI Narrative: Patient is a 38-year-old female presenting with right knee pain. Patient states that she has had swelling in the right knee. She saw an orthopedic doctor about 5 days ago and he drained fluid off of the knee. States that it helped her pain very temporarily. States that since then her pain has returned and now her knee feels tingly. States that it hurts to move it. She has a follow-up appointment with her orthopedic doctor in 2 weeks. States that the pain is too severe so she came in for evaluation. No fevers or chills, nausea or vomiting, erythema, recent injuries. No further complaints. Related Data Home Medications Medication Instructions Recorded Confirmed hydroxyzine HCl 25 mg tablet 25 mg PO HS 05/02/20 07/31/23 Allergies Allergy/AdvReac Type Severity Reaction Status Date / Time hydrocodone AdvReac Mild Vomiting Verified 08/07/23 16:41 tramadol AdvReac Unknown ANXIETY/HEART Verified 08/07/23 16:41 RACING Review of Systems Review of Systems: All systems reviewed & are unremarkable except as noted in HPI and below PMFSH Past Medical History Medical History Anxiety Asthma Bipolar 1 disorder COVID-19 Ectopic treated with methotrexate Menorrhagia Migraine Morbid obesity (normal spontaneous vaginal delivery) PCOS (polycystic ovarian syndrome) Surgical History Surgical History History of adenoidectomy History of dental surgery Hx of tonsillectomy Family History Family History Father Unknown family medical history Mother Hypertension Breast cancer Lupus (systemic lupus erythematosus) Social History Social History Smoking status: Never smoker Tobacco type: cigarettes Second hand tobacco smoke exposure: No (Holly reports being a light smoker when drinking) Alcohol intake: current Drinks per week: 2 Alcohol use details: reporting quitting 10/31/2020 Substance use: never Substance use type: does not use Living arrangements: with family Additional living arrangements comments: DAUGHTER Occupation/Education: occupation Gender identity (if verbalized by the patient): Female Sexual Orientation (if Verbalized by the Patient): Straight or Heterosexual Spiritual care concerns: No Exam Narrative: GENERAL: Well-appearing, In no acute distress, pleasant cooperative HEAD: Normocephalic, atraumatic. EYES: PERRLA and EOMI. ENT: grossly unremarkable NECK: Supple. CHEST: No respiratory distress. HEART: Regular rate and rhythm EXTREMITIES: right knee is mildly swollen, diffusely tender, no erythema, ROM is painful but intact, distal pulses 2+ SKIN: Warm, dry, no rash. NEURO: Alert and oriented x3. PSYCH: Normal mood and affect. Course Vital Signs Vital signs: Vital Signs Temperature 98.6 F 08/07/23 16:39 Pulse Rate 77 08/07/23 16:39 Respiratory Rate 16 08/07/23 16:39 Blood Pressure 148/89 H 08/07/23 16:39 Pulse Oximetry 99 08/07/23 16:39 Temperature 98.6 F 08/07/23 16:39 Pulse Rate 74 08/07/23 23:00 Respiratory Rate 20 08/07/23 23:00 Blood Pressure 148/89 H 08/07/23 16:39 Pulse Oximetry 100 08/07/23 23:00 MDM - Extremity Injury (Lower) MDM Narrative Medical decision making narrative: patient is a 38-year-old female presenting with right knee pain and swelling. Vitals are stable. Exam remarkable for the above. She just had this knee drained by an orthopedic doctor. X-ray today shows reaccumulation of a moderate effusion. There is no erythema of the joint
[2023-08-07] MEDS: oxyCODONE/ACETAMINOPHEN (*CRX) 5-325 MG TABLET 1 TABLET PO (20:30)
[2023-08-07] MEDS: SODIUM CHLORIDE 0.9% IV 1,000 ML 999 ML IV CONT (20:30)
[2023-08-07] MEDS: KETOROLAC 30 MG/ML VIAL (*BKC) IV PUSH (20:31)
[2023-08-07 20:38] LABS: Basophils Percent Auto 0.4 % (0.2-1.2); Eosinophils Absolute Auto 0.1 K/mm3 (0-0.3); Eosinophils Percent Auto 0.8 % (0-4.4); Hematocrit 38.1 % (37.0-47.0); Hemoglobin 11.8 g/dL (12.0-15.0); Immature Granulocyte Absolute 0.02 K/mm3 (0.00-0.031); Immature Granulocyte Percent A 0.2 % (0-0.5); Lymphocytes Absolute Auto 2.06 K/mm3 (0.9-3.2); Lymphocytes Percent Auto 24.7 % (18.3-44.2); Mean Corpuscular Hemoglobin 27.2 pg (26-34); Mean Corpuscular Volume 87.8 fl (80-100); Mean Platelet Volume 10.2 fl (7.4-10.4); Monocytes Absolute Auto 0.8 K/mm3 (0.1-0.6); Monocytes Percent Auto 9.3 % (2.6-8.5); Neutrophils Absolute Auto 5.4 K/mm3 (1.3-6.7); Neutrophils Percent Auto 64.6 % (45.5-73.1); Platelet Count Result 234 k/mm3 (150-375); Red Blood Count 4.34 M/mm3 (4.2-5.4); White Blood Count 8.4 K/mm3 (4.5-10.0)
[2023-08-07 20:49] LABS: Anion Gap 6 mmol/L (8-16); Blood Urea Nitrogen 15 mg/dL (7-17); Carbon Dioxide 26 mmol/L (22-30); Chloride 103 mmol/L (98-107); Estimated CRCL calculation 83 ml/min; Estimated Glomerular Filt Rate > 60; Glucose 95 mg/dL (65-110); Potassium 4.1 mmol/L (3.4-5.0); Sodium 135 mmol/L (137-145)
[2023-08-07 23:00] VITALS: PULSE 74; RESP 20; O2SAT 100
== END 2023-08-07 23:01 | disposition home or self-care (01) ==
PROVIDERS: Emergency Provider Emergency Medicine; PCP Internal Medicine Gastroenterology
DX: M23.91 Unspecified internal derangement of right knee (principal); M25.461 Effusion, right knee; J45.909 Unspecified asthma, uncomplicated; E28.2 Polycystic ovarian syndrome; F17.210 Nicotine dependence, cigarettes, uncomplicated; Z86.16 Personal history of COVID-19
CPT/HCPCS: 36415; 73564; 80048; 85025; 96361; 96374; 99284; A9270; J1885; J7030

== ENCOUNTER 2023-09-30 08:44 | Emergency (ER) | payer OTHER, SELFPAY ==
--- NOTE | ~2023-09-30 | XR_ITS ---
XR chest 2V DATE: 09/30/2023 09:36 INDICATION: Right rib and chest pain with inspiration. No injury. TECHNIQUE: 2 views COMPARISON: 09/14/2021 PA and lateral chest FINDINGS: Normal heart size. No hilar or mediastinal enlargement. No pulmonary infiltrate or consolid ation, pleural effusion or pulmonary vascular congestion or pneumothorax. Included skeletal structures are unremarkable. IMPRESSION: Negative Reviewed, dictated and finalized at location B. NG MACHINE TENDER IMPRESSION: Negative
[2023-09-30 08:50] VITALS: BP 128/86; PULSE 82; RESP 16; TEMP 36.6; O2SAT 100
--- NOTE | 2023-09-30 08:58 | ED.GENADULT ---
HPI - General Adult General Chief complaint: Unspecified Stated complaint: Rib pain Source: patient, RN notes reviewed and old records reviewed Mode of arrival: ambulatory Limitations: no limitations History of Present Illness HPI narrative: 38-year-old female presents to [facility] with complaints right-sided rib pain on inspiration for the last several days. Patient states did have cough and congestion last week but those symptoms have resolved and is now just having the pain. Patient has not taken anything for pain. Patient denies fever. MD complaint: Rib pain Onset (ago): day(s) (3-4) Related Data Home Medications Medication Instructions Recorded Confirmed hydroxyzine HCl 25 mg tablet 25 mg PO HS 05/02/20 09/30/23 Allergies Allergy/AdvReac Type Severity Reaction Status Date / Time hydrocodone AdvReac Mild Vomiting Verified 09/30/23 08:51 tramadol AdvReac Unknown ANXIETY/HEART Verified 09/30/23 08:51 RACING Review of Systems Constitutional: Constitutional: Reports no additional constitutional complaints, Denies body ache(s), Denies chills, Denies fatigue, Denies fever(s) and Denies headache(s) Eyes: Eyes: Reports no additional eye complaints and Denies blurry vision ENT: Reports system reviewed and no additional complaints, except as documented, Denies vertigo, Denies dizziness, Denies ear discharge, Denies otalgia, Denies facial pain, Denies headache(s), Denies nasal congestion, Denies nasal discharge, Denies sinus pain, Denies sinus pressure and Denies sore throat Cardiovascular: Cardiovascular: Reports no additional cardiovascular complaints, Denies chest pain, Denies chest pain at rest, Denies rapid heart rate and Denies dyspnea Respiratory: Respiratory: Reports no additional respiratory complaints, Denies chest congestion, Denies cough, Reports pain on inspiration, Denies pain with cough and Denies dyspnea Gastrointestinal: Gastrointestinal: Denies abdominal pain, Denies diarrhea, Denies nausea and Denies vomiting Integumentary/Breasts: Skin/Breast: Denies rash Neurologic: Reports system reviewed and no additional complaints, except as documented, Denies vertigo, Denies dizziness and Denies headache(s) Endocrine: Endocrine: Denies fatigue PMFSH Past Medical History Medical History Anxiety Asthma Bipolar 1 disorder COVID-19 Ectopic treated with methotrexate Menorrhagia Migraine Morbid obesity (normal spontaneous vaginal delivery) PCOS (polycystic ovarian syndrome) Surgical History Surgical History History of adenoidectomy History of dental surgery Hx of tonsillectomy Family History Family History Father Unknown family medical history Mother Hypertension Breast cancer Lupus (systemic lupus erythematosus) Social History Social History Smoking status: Never smoker Tobacco type: cigarettes Second hand tobacco smoke exposure: No (Holly reports being a light smoker when drinking) Alcohol intake: current Drinks per week: 2 Alcohol use details: reporting quitting 10/31/2020 Substance use: never Substance use type: does not use Living arrangements: with family Additional living arrangements comments: DAUGHTER Occupation/Education: occupation Gender identity (if verbalized by the patient): Female Sexual Orientation (if Verbalized by the Patient): Straight or Heterosexual Spiritual care concerns: No Comments At the time of my signature, I reviewed and agree with the nursing past medical, surgical, social, and family history. There is no relevant family history pertinent to the patient complaint. Exam Const: General: cooperative, healthy appearing, no acute distress and well nourished Nutritional Appearance: well nou
== END 2023-09-30 09:51 | disposition home or self-care (01) ==
PROVIDERS: Emergency Provider Registered Nurse; PCP Internal Medicine Gastroenterology
DX: S29.011A Strain of muscle and tendon of front wall of thorax, initial encounter (principal); X58.XXXA Exposure to other specified factors, initial encounter; Z87.891 Personal history of nicotine dependence; J45.909 Unspecified asthma, uncomplicated; E66.01 Morbid (severe) obesity due to excess calories; Z68.42 Body mass index [BMI] 45.0-49.9, adult; E28.2 Polycystic ovarian syndrome; F41.9 Anxiety disorder, unspecified; Z86.16 Personal history of COVID-19
CPT/HCPCS: 71046; 99213; G0463

== ENCOUNTER 2024-05-02 19:54 | Emergency (ER) | payer OTHER, SELFPAY ==
--- NOTE | ~2024-05-02 | CT_ITS ---
CT of the Abdomen and Pelvis: Indication: Abdominal pain Technique: 2.5 mm axial scans were obtained through the abdomen and pelvis following intravenous adm inistration of 100 cc of Omnipaque 350. Dose reduction technique was used on this scan by utilizing a utomated exposure control and iterative reconstruction technique. The dose-length product (DLP) was 1 565.01 mGy-cm. COMPARISON: 12/05/2022 Findings: Scans through the lung bases are unremarkable. The liver, spleen, pancreas, gallbladder, adrenals and kidneys are within normal limits. No evidence of aortic aneurysm. No lymphadenopathy. No bowel obstruction or bowel wall thickening. There is no evidence to suggest acute appendicitis. Images through the pelvis were performed. Urinary bladder unremarkable. No adnexal mass seen. No asci katrina. Impression: No significant abnormalities seen. Reviewed, dictated and finalized at [facility]. Impression: No significant abnormalities seen.
--- NOTE | ~2024-05-02 | US_ITS ---
Pelvic ultrasound. Clinical History: Pelvic pain, torsion Technique: Realtime transabdominal scanning of the pelvis was performed. Color flow Doppler and Doppl er spectral analysis were performed. Findings: The uterus is anteverted. The endometrial stripe has a thickness of 4 mm. No focal mass is identified. The right ovary measures 5.3 x 2.3 x 2.0 cm. No significant right ovarian or adnexal mass is seen. The left ovary measures 2.7 x 2.7 x 2.6 cm. No significant left ovarian or adnexal mass is seen. No evidence for torsion. There is no evidence of free fluid in the cul de sac. Impression: Unremarkable pelvic ultrasound. No evidence of torsion. Reviewed, dictated and finalized at location . Impression: Unremarkable pelvic ultrasound. No evidence of torsion.
[2024-05-02 19:59] VITALS: BP 136/100; PULSE 103; RESP 18; TEMP 37.2; O2SAT 98
[2024-05-02 20:23] VITALS: BP 141/97; PULSE 97; RESP 12; O2SAT 98
--- NOTE | 2024-05-02 20:49 | ED.ABDPAIN ---
HPI - Abdominal Pain General Chief Complaint: Abdominal Pain <SRINIVASA Moralez Last Filed: 05/03/24 02:35> Stated Complaint: R lower abd pain x2 days <SRINIVASA Moralez Last Filed: 05/03/24 02:35> Time Seen by Provider: 05/02/24 20:10 <SRINIVASA Moralez Last Filed: 05/03/24 02:35> Source: patient <SRINIVASA Moralez Last Filed: 05/03/24 02:35> Mode of arrival: ambulatory <SRINIVASA Moralez Last Filed: 05/03/24 02:35> Limitations: no limitations <SRINIVASA Moralez Last Filed: 05/03/24 02:35> History of Present Illness HPI narrative: this is a 38-year-old female with PMH of PCOS who presents to the ED with chief complaint of right lower quadrant abdominal pain starting yesterday. Reports sharp pain to the right lower quadrant that does not radiate. States it is tender to touch. Denies any specific worsening with food. Denies fevers, chills, urinary symptoms, vaginal symptoms, pelvic pain, concern for STD, back pain, lightheadedness, syncope. <SRINIVASA Moralez Last Filed: 05/03/24 02:35> Related Data Home Medications: Home Medications Medication Instructions Recorded Confirmed hydroxyzine HCl 25 mg tablet 25 mg PO HS 05/02/20 09/30/23 <SRINIVASA Moralez Last Filed: 05/03/24 02:35> Allergies/Adverse Reactions: Allergies Allergy/AdvReac Type Severity Reaction Status Date / Time hydrocodone AdvReac Mild Vomiting Verified 09/30/23 08:51 tramadol AdvReac Unknown ANXIETY/HEART Verified 09/30/23 08:51 RACING <SRINIVASA Moralez Last Filed: 05/03/24 02:35> Review of Systems Review of Systems: All systems as dictated in HPI <SRINIVASA Moralez Last Filed: 05/03/24 02:35> [facility] Past Medical History Medical History: Medical History Anxiety Asthma Bipolar 1 disorder COVID-19 Ectopic treated with methotrexate Menorrhagia Migraine Morbid obesity (normal spontaneous vaginal delivery) PCOS (polycystic ovarian syndrome) <Bogdan Stern PA-C - Last Filed: 05/03/24 02:35> Surgical History Surgical History: Surgical History History of adenoidectomy History of dental surgery Hx of tonsillectomy <SRINIVASA Moralez Last Filed: 05/03/24 02:35> Family History Family History: Family History Father Unknown family medical history Mother Hypertension Breast cancer Lupus (systemic lupus erythematosus) <Bogdan Stern PA-C - Last Filed: 05/03/24 02:35> Social History Social History: Social History Smoking status: Never smoker Tobacco type: cigarettes Second hand tobacco smoke exposure: No ([facility] reports being a light smoker when drinking) Alcohol intake: current Drinks per week: 2 Alcohol use details: reporting quitting 10/31/2020 Substance use: never Substance use type: does not use Living arrangements: with family Additional living arrangements comments: DAUGHTER Occupation/Education: occupation Gender identity (if verbalized by the patient): Female Sexual Orientation (if Verbalized by the Patient): Straight or Heterosexual Spiritual care concerns: No <SRINIVASA Moralez Last Filed: 05/03/24 02:35> Exam Narrative: GENERAL: Well-appearing, well-nourished, and in no acute distress. HEAD: Normocephalic, atraumatic. EYES: PERRLA and EOMI. ENT: Nares clear, no rhinorrhea or epistaxis. Mucous membranes moist. Oropharynx without tonsillar hypertrophy exudate or other lesions. NECK: Supple. No adenopathy or masses. CHEST: No respiratory distress. Clear to auscultation. No wheezes rales or rhonchi HEART: Regular rate and rhythm. No murmur heard. Normal peripheral pulses. ABDOMEN: Right lower quadrant tend
--- NOTE | 2024-05-02 21:08 | PC.NURSE ---
Patient unable to give urine sample at this time, patient requested some time to be able to attempt again soon
[2024-05-02 21:12] LABS: Basophils Percent Auto 0.4 % (0.2-1.2); Eosinophils Absolute Auto 0.1 K/mm3 (0-0.3); Eosinophils Percent Auto 1.2 % (0-4.4); Hematocrit 41.3 % (37.0-47.0); Hemoglobin 13.3 g/dL (12.0-15.0); Immature Granulocyte Absolute 0.02 K/mm3 (0.00-0.031); Immature Granulocyte Percent A 0.2 % (0-0.5); Lymphocytes Absolute Auto 2.37 K/mm3 (0.9-3.2); Mean Corpuscular HGB Conc 32.2 g/dl (32-36); Mean Corpuscular Volume 86.9 fl (80-100); Mean Platelet Volume 11.1 fl (7.4-10.4); Monocytes Absolute Auto 0.8 K/mm3 (0.1-0.6); Monocytes Percent Auto 9.3 % (2.6-8.5); Neutrophils Absolute Auto 4.9 K/mm3 (1.3-6.7); Neutrophils Percent Auto 59.9 % (45.5-73.1); Platelet Count Result 232 k/mm3 (150-375); Red Blood Count 4.75 M/mm3 (4.2-5.4); Red Cell Distribution Width 14.6 % (11.5-14.5); White Blood Count 8.2 K/mm3 (4.5-10.0)
[2024-05-02] MEDS: SODIUM CHLORIDE 0.9% IV 1,000 ML 999 ML IV CONT (21:14)
[2024-05-02] MEDS: HYDROmorphone HCL INJ (*CRX) 1 MG/ML SYR 0.5 MG IV PUSH (21:14)
[2024-05-02] MEDS: ONDANSETRON INJ 4 MG/2 ML VIAL IV PUSH (21:14)
[2024-05-02 21:27] LABS: SPREG INTERNAL CONTROL Positive; Serum Qual hCG Negative
[2024-05-02 21:28] LABS: Alanine Aminotransferase 19 U/L (6-35); Albumin Level 4.2 g/dL (3.5-5.1); Alkaline Phosphatase 90 U/L (38-126); Anion Gap 8 mmol/L (4-12); Aspartate Amino Transferase 25 U/L (14-36); Bilirubin,Total 0.3 mg/dL (0.2-1.3); Blood Urea Nitrogen 13 mg/dL (7-17); Calcium 8.6 mg/dL (8.4-10.2); Carbon Dioxide 26 mmol/L (22-30); Chloride 104 mmol/L (98-107); Estimated Glomerular Filt Rate > 60; Glucose 100 mg/dL (65-110); Lipase 211 U/L (23-300); Potassium 4.2 mmol/L (3.4-5.0); Sodium 138 mmol/L (137-145)
[2024-05-02 23:48] LABS: BEDSIDEPREGUCG Negative
[2024-05-02 23:59] LABS: Bacteria Urine None Seen /hpf; Non Pathogenic Casts 0-2; RBC Urine 0-2 /hpf (0-2); Squamous Epithelial Cell Urine None Seen /hpf (Few); WBC Urine 0-5 /hpf (0-3)
[2024-05-03] VITALS (10 sets, daily range): BP systolic 94–124; BP diastolic 50–82; PULSE 79–88; RESP 12–19; O2SAT 95–98
[2024-05-03] LABS: Add Urine Microscopic? NO
[2024-05-03 00:01] LABS: Appearance Urine Clear (Clear); Bilirubin Urine Negative (Negative); Blood Urine Negative (Negative); Color Urine Yellow (Yellow); Glucose Urine UA Negative (Negative); Ketones Urine Negative (Negative); Nitrate Urine Negative (Negative); Protein Urine Negative (Negative); pH Urine 5.5 (5.0-9.0)
[2024-05-03 00:02] LABS: Leukocyte Esterase Ur Negative LEU/UL (Negative); Urobilinogen Urine 0.2 mg/dL (<2.0)
[2024-05-03] MEDS: KETOROLAC 30 MG/ML VIAL (*BKC) IV PUSH (02:13)
== END 2024-05-03 05:02 | disposition home or self-care (01) ==
PROVIDERS: Emergency Provider Physician Assistant; PCP Internal Medicine Gastroenterology
DX: R10.31 Right lower quadrant pain (principal); F41.9 Anxiety disorder, unspecified; J45.909 Unspecified asthma, uncomplicated
CPT/HCPCS: 36415; 74177; 76856; 80053; 81003; 81025; 83690; 84703; 85025; 96361; 96374; 96375; 99284; J1170; J1885; J2405; J7030; Q9967

== ENCOUNTER 2024-09-16 13:14 | Emergency (ER) | payer OTHER, SELFPAY ==
--- NOTE | 2024-09-16 13:24 | ED_ITS ---
HPI - General Adult General Chief complaint: Extremity Injury, Upper Stated complaint: L SIDE & ARM PAIN Source: patient Mode of arrival: ambulatory Limitations: no limitations History of Present Illness HPI narrative: [age] year old female presented for complaint of pain to the left upper back and under arm area. Onset 2 days. Pain is described as a dull ache, and tightness. Denies known injury or overuse. Denies bruising or rash to the site; Denies chest pain, palpitations, cough, sob, wheezing, dizziness, n/v. Pain is worse with certain movements such as ear to shoulder or overhead movement, pain also worse with palpation. Has taken anti-inflammatories and muscle relaxers without improvement. Denies numbness, tingling or weakness to the arm or hand. Related Data Home Medications ?Medication ?Instructions ?Recorded ?Confirmed ?Last Taken ?Type quetiapine 25 mg tablet mg 09/16/24 Unknown History Allergies Allergy/AdvReac Type Severity Reaction Status Date / Time hydrocodone AdvReac Mild Vomiting Verified 09/30/23 08:51 tramadol AdvReac Unknown ANXIETY/HEART Verified 09/30/23 08:51 RACING Review of Systems 2 Review of Systems: CONSTITUTIONAL: Denies body aches, fever, chills, or sweats. CARDIOVASCULAR: Denies chest pain, palpitations, or edema. RESPIRATORY: Denies cough or dyspnea. GASTROINTESTINAL: Denies abdominal pain, nausea, vomiting, or diarrhea. SKIN: Denies rash, itching, or wounds. MUSCULOSKELETAL: reports left upper back pain, joint pain, or myalgia. NEUROLOGIC: Denies headache, numbness, tingling, or weakness. All systems reviewed & are unremarkable except as noted in HPI and below PMFSH Past Medical History Medical History COVID-19 Menorrhagia Ectopic treated with methotrexate (normal spontaneous vaginal delivery) Bipolar 1 disorder PCOS (polycystic ovarian syndrome) Morbid obesity Anxiety Asthma Migraine Surgical History Surgical History History of dental surgery History of adenoidectomy Hx of tonsillectomy Family History Family History Father Unknown family medical history Mother Hypertension Breast cancer Lupus (systemic lupus erythematosus) Social History Social History Smoking status: Never smoker Tobacco type: cigarettes Second hand tobacco smoke exposure: No (Holly reports being a light smoker when drinking) Alcohol intake: current Drinks per week: 2 Alcohol use details: reporting quitting 10/31/2020 Substance use: never Substance use type: does not use Living arrangements: with family Additional living arrangements comments: DAUGHTER Occupation/Education: occupation Gender identity (if verbalized by the patient): Female Sexual Orientation (if Verbalized by the Patient): Straight or Heterosexual Spiritual care concerns: No Comments At time of signature, I have reviewed and agree with nursing past medical, surgical, social and family history unless otherwise noted. Please see nursing chart for further information. There is no relevant family history pertinent to the presenting complaint Exam 2 Narrative: GENERAL: Well-appearing ENT: Mucous membranes pink and moist. NECK: Normal AROM. No vpt. CHEST: No respiratory distress. Clear to auscultation. HEART: Regular rate and rhythm. No murmur appreciated. Normal peripheral pulses. ABDOMEN: Soft, nontender, nondistended, normal active bowel sounds. MUSCULOSKELETAL: Tender to left upper trap, scapular area and under left axilla. No lymphadenopathy. No cervical or thoracic point tenderness. EXTREMITIES: Normal range of motion to LUE. Endorses pain with ear to left shoulder movement but with full ROM. No edema to LUE. SKIN: Warm, dry, no bruising,rash, or abscess. Capillary refill normal. Normal skin turgor. NEURO: No focal deficits. Alert and oriented x3. Gait steady. PSYCH: Appears anxious Extrem: Shoulder/upper arm images: 1. area of pain 2. area of pain Course Course Emergency Course: Patient is aware of diagnosis, understands and agrees to treatment plan. Anticipatory guidance given. Patient agrees to follow-up as directed and is aware of reasons to seek care at the emergency department. Portions of this record may have been created with voice recognition software Level of Care: Express Care Visit Vital Signs Vital signs: Vital Signs Temperature 98.6 F 09/16/24 13:26 Pulse Rate 87 09/16/24 13:26 Respiratory Rate 16 09/16/24 13:26 Blood Pressure 135/88 09/16/24 13:26 Pulse Oximetry 99 09/16/24 13:26 Temperature 98.6 F 09/16/24 13:26 Pulse Rate 87 09/16/24 13:26 Respiratory Rate 16 09/16/24 13:26 Blood Pressure 135/88 09/16/24 13:26 Pulse Oximetry 99 09/16/24 13:26 Medical Decision Making MDM Narrative Medical decision making narrative: Discussed physical exam findings, tender with palpation consistent with musculoskeletal pain. Patient appears anxious resistant to Rx steroid. Given IM Toradol and reassessed. Pt reported pain is unchanged. VSS. Advised supportive measures and signs/symptoms to go to the ER. Pt is appropriate for outpt treatment and f/u. Differential Diagnosis Differential Diagnosis: Shoulder dislocation, clavicle fracture, humerus fracture, scapular fracture, acromioclavicular joint injury, rotator cuff tear, bicep tendon rupture, tricep tendon rupture Vital Signs Vital Signs: Vital Signs Temperature 98.6 F 09/16/24 13:26 Pulse Rate 87 09/16/24 13:26 Respiratory Rate 16 09/16/24 13:26 Blood Pressure 135/88 09/16/24 13:26 Pulse Oximetry 99 09/16/24 13:26 Temperature 98.6 F 09/16/24 13:26 Pulse Rate 87 09/16/24 13:26 Respiratory Rate 16 09/16/24 13:26 Blood Pressure 135/88 09/16/24 13:26 Pulse Oximetry 99 09/16/24 13:26 reviewed Discharge Plan Discharge Clinical Impression: Musculoskeletal pain Patient Disposition: Home, Self-Care Condition: Stable Instructions: Musculoskeletal Pain (ED) Additional Instructions: Rest. Avoid pushing, pulling, lifting or anything that worsens the symptoms Tylenol 1000mg every 8 hours as needed You can alternate with ibuprofen 800mg for 5 days. Continue muscle relaxers previously prescribed Alternate ice/heat to the site. Lidocaine or salon pas pain patch or use pain cream like icy/hot or biofreeze. Follow up with your primary care provider, call today to schedule appointment Go to the ER for worsening symptoms or concerns Patient Language: Macanese Prescriptions: New methylprednisolone [Medrol (Uday)] 4 mg tablets,dose pack See Rx Instructions .ROUTE .COMPLEX Qty: 21 0RF Rx Instructions: orally per package directions No Action quetiapine 25 mg tablet ibuprofen 600 mg tablet 600 mg PO Q6H PRN (Reason: pain) 5 Days Qty: 20 0RF Follow-up/Referrals: Elton,Adilia Ramirez MD [Primary Care Provider] - Time of Disposition: 14:25
[2024-09-16 13:26] VITALS: BP 135/88; PULSE 87; RESP 16; TEMP 37; O2SAT 99
[2024-09-16] MEDS: KETOROLAC (*BKC) 60 MG/2 ML VIAL IM (13:51)
== END 2024-09-16 14:27 | disposition home or self-care (01) ==
PROVIDERS: Emergency Provider Nurse Practitioner Family; PCP Internal Medicine Gastroenterology
DX: M79.622 Pain in left upper arm (principal); M25.512 Pain in left shoulder; E28.2 Polycystic ovarian syndrome; J45.909 Unspecified asthma, uncomplicated; E66.01 Morbid (severe) obesity due to excess calories; Z68.43 Body mass index [BMI] 50.0-59.9, adult; Z86.16 Personal history of COVID-19
CPT/HCPCS: 96372; 99213; G0463; J1885

== ENCOUNTER 2024-09-16 22:30 | Emergency (ER) | payer OTHER, SELFPAY ==
--- NOTE | ~2024-09-16 | XR_ITS ---
EXAMINATION: XR chest 1V portable 09/16/2024 22:59 INDICATION: Chest pain PROCEDURE: AP portable chest COMPARISON: Comparison to multiple prior studies sequentially, with oldest reviewed study dated 11/11. FINDINGS: The lungs are clear. The cardiomediastinal silhouette is within normal limits. There are no pleural effusions. There is no pneumothorax suspected. IMPRESSION: 1: NO ACUTE CARDIOPULMONARY DISEASE. Reviewed, dictated and finalized at location A. T PSYCHIATRIST
--- NOTE | 2024-09-16 22:33 | ECG_ITS ---
Test Date: 2024-09-16 22:38:44 Measurements Intervals [place] Rate: 70 P: 44 IA: 150 QRS: -4 QRSD: 76 T: 31 QT: 375 QTc: 405 Interpretive Statements SINUS RHYTHM No previous ECG available for comparison Electronically Signed On 09-17-2024 09:21:01 PRODUCTION ASSISTANT by Jean-Claude Garcia M.D.
[2024-09-16 22:38] VITALS: BP 177/127; PULSE 77; RESP 18; O2SAT 100
[2024-09-16 22:53] VITALS: O2SAT 98
[2024-09-16 22:58] LABS: Basophils Percent Auto 0.4 % (0.2-1.2); Eosinophils Absolute Auto 0.1 K/mm3 (0-0.3); Eosinophils Percent Auto 1.2 % (0-4.4); Hematocrit 40.4 % (37.0-47.0); Hemoglobin 13.1 g/dL (12.0-15.0); Immature Granulocyte Absolute 0.02 K/mm3 (0.00-0.031); Immature Granulocyte Percent A 0.2 % (0-0.5); Lymphocytes Absolute Auto 1.62 K/mm3 (0.9-3.2); Lymphocytes Percent Auto 19.9 % (18.3-44.2); Mean Corpuscular HGB Conc 32.4 g/dl (32-36); Mean Corpuscular Hemoglobin 28.7 pg (26-34); Mean Corpuscular Volume 88.4 fl (80-100); Mean Platelet Volume 10.5 fl (7.4-10.4); Monocytes Absolute Auto 0.9 K/mm3 (0.1-0.6); Monocytes Percent Auto 10.9 % (2.6-8.5); Neutrophils Absolute Auto 5.5 K/mm3 (1.3-6.7); Neutrophils Percent Auto 67.4 % (45.5-73.1); Platelet Count Result 217 k/mm3 (150-375); Red Blood Count 4.57 M/mm3 (4.2-5.4); Red Cell Distribution Width 14.8 % (11.5-14.5); White Blood Count 8.2 K/mm3 (4.5-10.0)
[2024-09-16 23:11] LABS: Alanine Aminotransferase 18 U/L (6-35); Albumin Level 4.4 g/dL (3.5-5.1); Alkaline Phosphatase 77 U/L (38-126); Anion Gap 5 mmol/L (4-12); Aspartate Amino Transferase 24 U/L (14-36); Bilirubin,Total 0.5 mg/dL (0.2-1.3); Blood Urea Nitrogen 15 mg/dL (7-17); Calcium 9.1 mg/dL (8.4-10.2); Carbon Dioxide 28 mmol/L (22-30); Chloride 104 mmol/L (98-107); Estimated CRCL calculation 90 ml/min; Estimated Glomerular Filt Rate > 60; Glucose 95 mg/dL (65-110); Lipase 124 U/L (23-300); Potassium 4.4 mmol/L (3.4-5.0); Sodium 137 mmol/L (137-145)
[2024-09-16 23:17] LABS: INR 0.9; Prothrombin Time 12.5 Seconds (11.1-14.7)
[2024-09-16 23:18] LABS: Partial Thromboplastin Time 24.8 Seconds (22.3-36.8)
[2024-09-16 23:22] LABS: Troponin I < 0.012 ng/mL (0.000-0.034)
[2024-09-16 23:30] VITALS: BP 135/102; PULSE 71; RESP 18; O2SAT 100
[2024-09-17] MEDS: MORPHINE SULFATE (*CRX) 4 MG/ML INJ IV PUSH (00:47)
[2024-09-17 01:04] LABS: D Dimer 0.37 ug/mL (<0.48)
[2024-09-17 01:08] LABS: NT Pro B Type Natriuretic Pept 131 pg/mL (19.9-100)
[2024-09-17 01:59] LABS: Troponin I < 0.012 ng/mL (0.000-0.034)
--- NOTE | 2024-09-17 02:27 | ED.GENADULT ---
HPI - General Adult General Chief complaint: Chest Pain Stated complaint: L chest pain that radiate to back and shoulder Time Seen by Provider: 09/16/24 22:54 History of Present Illness HPI narrative: This is a 39-year-old female presenting ED with a chief complaint of shoulder and arm pain. Patient developed a bandlike pain underneath her left arm that extends to her back. She says that is achy and intermittently itchy. She developed a rash over her back. She denies any fevers chills chest pain difficulty breathing fevers or productive cough. Patient has a history of shingles. Related Data Home Medications ?Medication ?Instructions ?Recorded ?Confirmed ?Last Taken ?Type quetiapine 25 mg tablet mg 09/16/24 Unknown History Allergies Allergy/AdvReac Type Severity Reaction Status Date / Time hydrocodone AdvReac Mild Vomiting Verified 09/16/24 22:43 tramadol AdvReac Unknown ANXIETY/HEART Verified 09/16/24 22:43 RACING PMFSH Past Medical History Medical History COVID-19 Menorrhagia Ectopic treated with methotrexate (normal spontaneous vaginal delivery) Bipolar 1 disorder PCOS (polycystic ovarian syndrome) Morbid obesity Anxiety Asthma Migraine Surgical History Surgical History History of dental surgery History of adenoidectomy Hx of tonsillectomy Family History Family History Father Unknown family medical history Mother Hypertension Breast cancer Lupus (systemic lupus erythematosus) Social History Social History Smoking status: Never smoker Tobacco type: cigarettes Second hand tobacco smoke exposure: No (Holly reports being a light smoker when drinking) Alcohol intake: current Drinks per week: 2 Alcohol use details: reporting quitting 10/31/2020 Substance use: never Substance use type: does not use Living arrangements: with family Additional living arrangements comments: DAUGHTER Occupation/Education: occupation Gender identity (if verbalized by the patient): Female Sexual Orientation (if Verbalized by the Patient): Straight or Heterosexual Spiritual care concerns: No Exam Narrative: APPEARANCE: No apparent distress. Head: atraumatic. EYES: EOMI, NOSE: Atraumatic NECK: Trachea midline RESPIRATORY: No increased rate of breathing CTAB CARDIOVASCULAR: RRR, no peripheral edema ABDOMINAL: Non-distended MUSCULOSKELETAl: No obvious deformities NEURO: Alert. Moving 4/4 extremities SKIN:: Vesicular rash over the left posterior back. PSYCHIATRIC: Normal affect Course Vital Signs Vital signs: Vital Signs Pulse Rate 77 09/16/24 22:38 Respiratory Rate 18 09/16/24 22:38 Blood Pressure 177/127 H 09/16/24 22:38 Pulse Oximetry 100 09/16/24 22:38 Oxygen Delivery Room Air 09/16/24 22:38 Pulse Rate 71 09/16/24 23:30 Respiratory Rate 18 09/16/24 23:30 Blood Pressure 135/102 H 09/16/24 23:30 Pulse Oximetry 100 09/16/24 23:30 Oxygen Delivery Room Air 09/16/24 22:53 Medical Decision Making MDM Narrative Medical decision making narrative: -Course: 39-year-old female presenting with bandlike pain underneath her left arm. Patient has also developed a rash that coincides with the onset symptoms. Suspect patient has shingles. She will be treated with acyclovir. Other causes of serious chest pain ruled out with negative chest x-rays troponins BNP and D-dimer. -DDX includes but is not limited to: ACS, pneumonia, pneumothorax, muscle strain, shingles -Independent interpretation of studies: Labs imaging reviewed Independent EKG interpretation: Rhythm [sinus], Rate [70], [place] -[normal], [place] -[normal], QRS [narrow], QTC [normal], T waves -[negative for concerning inversions], ST Segments - [Negative for concerning elevations] Final interpretations: [Normal Sinus Rhythm] -Interventions: Morphine, acyclovir -Shared decision making / Disposition: Discharged -RX acyclovir, Motrin Tylenol Vital Signs Vital Signs: Vital Signs Pulse Rate 77 09/16/24 22:38 Respiratory Rate 18 09/16/24 22:38 Blood Pressure 177/127 H 09/16/24 22:38 Pulse Oximetry 100 09/16/24 22:38 Oxygen Delivery Room Air 09/16/24 22:38 Pulse Rate 71 09/16/24 23:30 Respiratory Rate 18 09/16/24 23:30 Blood Pressure 135/102 H 09/16/24 23:30 Pulse Oximetry 100 09/16/24 23:30 Oxygen Delivery Room Air 09/16/24 22:53 Lab Data 09/16/24 22:51 09/16/24 22:51 Labs: Lab Results 09/16/24 09/17/24 Range/Units 22:51 01:33 WBC 8.2 (4.5-10.0) K/mm3 RBC 4.57 (4.2-5.4) M/mm3 Hgb 13.1 (12.0-15.0) g/dL Hct 40.4 (37.0-47.0) % MCV 88.4 (80-100) fl MCH 28.7 (26-34) pg MCHC 32.4 (32-36) g/dl RDW 14.8 H (11.5-14.5) % Plt Count 217 (150-375) k/mm3 MPV 10.5 H (7.4-10.4) fl Immature Gran % (Auto) 0.2 (0-0.5) % Neut % (Auto) 67.4 (45.5-73.1) % Lymph % (Auto) 19.9 (18.3-44.2) % [place] % (Auto) 10.9 H (2.6-8.5) % Eos % (Auto) 1.2 (0-4.4) % Baso % (Auto) 0.4 (0.2-1.2) % Lymph # (Auto) 1.62 (0.9-3.2) K/mm3 [place] # (Auto) 0.9 H (0.1-0.6) K/mm3 Eos # (Auto) 0.1 (0-0.3) K/mm3 Baso # (Auto) 0.0 (0.0-0.1) K/mm3 Abs Immat Gran (auto) 0.02 (0.00-0.031) K/mm3 Absolute Neuts (auto) 5.5 (1.3-6.7) K/mm3 Absolute Nucleated RBC 0.000 (0.0-0.012) K/mm3 Nucleated RBC % 0.0 (0.0-0.2) % PT 12.5 (11.1-14.7) Seconds INR 0.9 APTT 24.8 (22.3-36.8) Seconds D-Dimer 0.37 (<0.48) ug/mL Sodium 137 (137-145) mmol/L Potassium 4.4 (3.4-5.0) mmol/L Chloride 104 (98-107) mmol/L Carbon Dioxide 28 (22-30) mmol/L Anion Gap 5 (4-12) mmol/L BUN 15 (7-17) mg/dL Creatinine 0.90 (0.7-1.0) mg/dL Estim Creat Clear Calc 90 ml/min Estimated GFR > 60 (59 - ) Glucose 95 (65-110) mg/dL Calcium 9.1 (8.4-10.2) mg/dL Total Bilirubin 0.5 (0.2-1.3) mg/dL AST 24 (14-36) U/L ALT 18 (6-35) U/L Alkaline Phosphatase 77 (38-126) U/L Troponin I < 0.012 < 0.012 (0.000-0.034) ng/mL NT-Pro-B Natriuret Pep 131 H (19.9-100) pg/mL Total Protein 8.0 (6.3-8.2) g/dL Albumin 4.4 (3.5-5.1) g/dL Lipase 124 (23-300) U/L Discharge Plan Discharge Clinical Impression: Shingles Patient Disposition: Home, Self-Care Condition: Stable Instructions: Antibiotic Melani Alcaraz (ED) Additional Instructions: Please take the acyclovir as instructed. Use Motrin and Tylenol for pain control. Please follow-up with your primary care physician for further management. You develop any new or worsening symptoms await return to the ED immediately. Patient Language: [place] Prescriptions: New ibuprofen 800 mg tablet 800 mg PO TID PRN (Reason: pain) 7 Days Qty: 21 0RF acetaminophen 500 mg tablet 1,000 mg PO TID PRN (Reason: marcellus) 7 Days Qty: 42 0RF acyclovir 800 mg tablet 800 mg PO Q4H Qty: 35 0RF Rx Instructions: while awake; give 5 doses in 24 hours No Action quetiapine 25 mg tablet methylprednisolone [Medrol (Uday)] 4 mg tablets,dose pack See Rx Instructions .ROUTE .COMPLEX Qty: 21 0RF Rx Instructions: orally per package directions ibuprofen 600 mg tablet 600 mg PO Q6H PRN (Reason: pain) 5 Days Qty: 20 0RF Follow-up/Referrals: Elton,Adilia Ramirez MD [Primary Care Provider] - 1 Week (Possible shingles)
[2024-09-17 02:50] VITALS: BP 140/88; PULSE 76; RESP 17; O2SAT 100
[2024-09-17] MEDS: ACYCLOVIR 400 MG TABLET 800 MG PO (03:33)
[2024-09-17 04:11] VITALS: BP 130/84; PULSE 68; RESP 14; O2SAT 99
[2024-09-17 04:12] VITALS: BP 130/84; PULSE 68; RESP 14; O2SAT 99
== END 2024-09-17 04:14 | disposition home or self-care (01) ==
PROVIDERS: Emergency Provider Emergency Medicine; PCP Internal Medicine Gastroenterology
DX: B02.9 Zoster without complications (principal); E28.2 Polycystic ovarian syndrome; E66.01 Morbid (severe) obesity due to excess calories; Z68.43 Body mass index [BMI] 50.0-59.9, adult; J45.909 Unspecified asthma, uncomplicated; F41.9 Anxiety disorder, unspecified; F31.9 Bipolar disorder, unspecified; F17.210 Nicotine dependence, cigarettes, uncomplicated; Z86.16 Personal history of COVID-19
CPT/HCPCS: 36415; 71045; 80053; 83690; 83880; 84484; 85025; 85380; 85610; 85730; 93005; 96374; 99284; A9270; J2270

== ENCOUNTER 2024-12-11 19:00 | Emergency (ER) | payer OTHER, SELFPAY ==
--- NOTE | ~2024-12-11 | US_ITS ---
US OB <=14 wk fetus w TV Ordering provider: Ca Cuevas PA-C History: . bleeding, . Comparison: None Technique: Transabdominal and endovaginal ultrasound of the pelvis (Doppler ultrasound interrogation techniques used as needed for this exam.) FINDINGS: CERVIX: Normal. UTERUS: Measures 9.2x 4.1x 4.3 cm in length which is within normal limits and is anteverted. No myom etrial masses. ENDOMETRIUM: Measures 6.6 mm. Intrauterine seen. CUL DE SAC: Trace of fluid is seen anterior to the uterus. RIGHT OVARY: Normal in size measuring 3.2x 2x 1.7 cm. Normal echotexture. Doppler vascular flow is po or. LEFT OVARY: Normal in size measuring 3x 2.1x 2 cm. Normal echotexture. Doppler vascular flow present. ADNEXA: Normal. No mass. IMPRESSION: No intrauterine . Poor vascularity is seen in the right ovary. Minimal fluid in the anterior cul-de-sac. Reviewed, dictated and finalized at location A.
--- OUTSIDE RECORDS SUMMARY | 2024-12-11 19:02 | XMS_ITS | Clinical Summary ---
Author Organization [facility] Address [address] [place] [address] Phone Care Team Providers Care Certified Appliance Service Technician Name Role Phone Adilia Conde MD Primary Care Provider Blas Zapata MD Unavailable Allergies Active Allergy Reactions Criticality Noted Date Comments Hydrocodone Vomiting 11/18/2021 Other reaction(s): VOMITING Hydrocodone-Acetaminop hen Other (see Comments) Medium 01/21/2015 Ketorolac Other (see Comments),Palpitations 09/27/2020 Tachycardia I had a panic attack after I took it Tramadol Palpitations Low 11/18/2021 Medications hydrOXYzine (ATARAX) 25 MG Tablet Take 25 mg by mouth. Active ondansetron (ZOFRAN-ODT) 4 MG TABLET DISPERSIBLE Take 1 Tablet by mouth every 8 hours as needed for Nausea - 1st line. 10 Tablet 3 Active QUEtiapine (SEROquel) 25 MG Tablet Take 25 mg by mouth. 2 Active aluminum & magnesium hydroxide-simet hicone (MAALOX, MYLANTA) 200-200-20 MG/5ML Suspension Take 15 mL by mouth. 1 Active dicyclomine (BENTYL) 20 MG Tablet Take 20 mg by mouth. 1 Active famotidine (PEPCID) 20 MG Tablet Take 20 mg by mouth. 1 Active hydrOXYzine (ATARAX) 25 MG Tablet Take 25 mg by mouth. Active ibuprofen (MOTRIN) 800 MG Tablet Take 800 mg by mouth 3 times daily. 3 Active Dulaglutide (Trulicity) 1.5 MG/0.5ML Solution Pen-injector 1.5 mg by Subcutaneous route once a week. 6 mL 1 3 Active Vit-Fe Fumarate-FA (Se- 19) 29-1 MG Chewable Tablet Take 1 Tablet by mouth daily. 3 Active Immunizations Immunization Administration Dates Next Due DTP Vaccine 06/09/1992, 9,03/01/1988,12/06,1987 Hepatitis A Vaccine 05/20/2017,02/28/2016,2014 Hepatitis B Vaccine, Pediatric/adolescent 12/09/1998,07/18/1998,12/13/1997 Hib Vaccine,unspecified Formulation 12/01/1990,0 03/13/1989,01/01/1989 Influenza Vaccine, Quadrivalent, PF 05/20/2017 MMR Vaccine 06/09/1992,01/01/1989 Meningococcal Vaccine 04/09/2019 OPV 06/09/1992, 9,03/01/1988,12/06,1987 TD VACCINE 04/09/2002 TDAP Vaccine 01/12/2015 Social History Tobacco Use Types Packs/Day Years Used Date Smoking Tobacco: Never Smokeless Tobacco: Current Comments Unknown Sex and Gender Information Value Date Recorded Sex Assigned at Not on file Legal Sex Female 12:19 AM CDT Gender Identity Not on file Sexual Orientation Not on file Last Filed Vital Signs Vital Sign Reading Time Taken Comments Blood Pressure 128/78 04/23/2023 11:22 AM CDT Pulse 86 04/23/2023 11:22 AM CDT Temperature 37.1 C (98.8 F) 01/21/2023 1:25 PM CDT Respiratory Rate 18 04/23/2023 11:2 2 AM CDT Oxygen Saturation 97% 04/23/2023 11: 22 AM CDT Inhaled Oxygen Concentration - - Weight 112.1 kg (247 lb 3.2 oz) 08/22/2 023 11:22 AM CDT Height 160 cm (5' 3 ) 12/29/2022 3:05 PM CDT Body Mass Index 43.79 12/29/2022 3:05 PM CDT Plan of Treatment Health Maintenance Due Date Last Done Comments Hepatitis C Virus (HCV) Screening 1987 HPV/Cotest 2017 Cervical Cancer Screening (CCS) 07/05/2020 Pap Smear 07/05/2020 07/05/2017 Influenza Immunization (#1) 2024 05/20/2017 SARS-COV-2 Immunization ( - 2023- season) 2024 DTaP/Tdap/Td Immunization (7 - Td or Tdap) 01/12/2025 01/12/2015, 04/09/2002, 06/09/1992, Additional history exists Respiratory Syncytial Virus (RSV) Immunization (Adult) (1 - 1-dose 75+ series) 2062 Hepatitis B Immunization Completed 999, 07/18/1998, 12/13/1997 Meningococcal Immunization (ACWY) Aged Out 04/09/2019 No longer eligible based on patient's age to complete this topic Pneumococcal Immunization Combined Aged Out No longer eligible based on patient's age to complete this topic Rotavirus Immunization Aged Out No lo nger eligible based on patient's age to complete this topic Insurance MEDICAID [place] Care Teams Certified Appliance Service Technician Relationship Specialty Start Date End Date Adilia Conde MD [address] [place] [address] PCP - General Internal Medicine 01/24/21 Blas Zapata MD [address] [address] Consulting Physician Endocrinology 01/08/23
--- OUTSIDE RECORDS SUMMARY | 2024-12-11 19:02 | XMS_ITS | Clinical Summary ---
Author Organization [facility] Address [address] [place] [address] Care Team Providers Care Compliance Technician Name Role Phone Adilia Conde MD Primary Care Provider + [phone] Source Comments [facility],non-[facility] Affiliates and Associated Physician Practices is amultiple site organization consisting of ambulatory clinics and hospital sitesin [place], [place], [place] and [place]. This disclosure is being madepursuant to the Care Everywhere program and may not contain all information available regarding this patient. Last updated 18.[facility] Allergies Active Allergy Reactions Criticality Noted Date Comments Ketorolac Palpitations 10/06/2020 I had a panic attack after I took it Hydrocodone-Acetaminophen 01/21/2015 Medications * Be aware that medications may not be up to date on this document. Alwaysverify current medications with the patient. Medication Sig Dispensed Refills Start Date End Date Status hydrOXYzine hcl (ATARAX) 25 MG tablet Take 1 (one) tablet by mouth Active ombaeldh-mhpypnhfj-c imethicone (MAALOX;MYLANTA) 200-200-20 MG/5ML suspension Take 15 mL by mouth every 6 hours as needed for Heartburn or Nausea/Vomiting 120 mL 12/07/2020 Active famotidine (PEPCID) 20 MG tablet Take 1 (one) tablet by mouth once daily 30 tablet 12/07/2020 Active QUEtiapine (SEROquel) 25 MG tabletIndications:Bi polar Mood Disorder Take 1 (one) tablet by mouth at bedtime Reasons: Manic-Depression Active Social History Tobacco Use Types Packs/Day Years Used Date Smoking Tobacco: Never Alcohol Use Standard Drinks/Week Comments Not Currently 0 (1 standard drink = 0.6 oz pur e alcohol) AUDIT-C Answer Date Recorded Q1: How often do you have a drink containing alcohol? Never 12/01/2022 Q2: How many drinks containi ng alcohol do you have on a typical day when you are drinking? Patient does not drink Q3: How often do you have si x or more drinks on one occasion? Never 12/01/2022 PHQ-2 Answer Date Recorded PHQ2 TOTAL SCORE 2 12/01/2022 Sex and Gender Information Value Date Recorded Sex Assigned at Female 03/26/2023 12:54 PM CDT Gender Identity Female 03/26/2023 12:54 PM CDT Sexual Orientation Choose not to disclose 2022 12:54 PM CDT Last Filed Vital Signs Vital Sign Reading Time Taken Comments Blood Pressure 133/79 04/18/2023 6:44 AM CDT Pulse 81 04/18/2023 3:20 AM CDT Temperature 36.6 C (97.9 F) 12/01/2022 4:40 PM CDT Respiratory Rate 18 04/18/2023 3:20 AM CDT Oxygen Saturation 100% 04/18/2023 6:44 AM CDT Inhaled Oxygen Concentration - - Weight 111.1 kg (245 lb) 04/18/2023 3:20 AM CDT Height 157.5 cm (5' 2 ) 04/18/2023 3:20 AM CDT Body Mass Index 44.81 04/18/2023 3:20 AM CDT Plan of Treatment Health Maintenance Due Date Last Done Comments HIV SCREENING 2002 HEPATITIS C SCREENING 08/01/2005 DTAP/TDAP/TD VACCINES (1 - Tdap) 2006 HEPATITIS B VACCINE (1 of 3 - 19+ 3-dose series) 2006 PAP SMEAR 07/05/2020 07/05/2017 COVID-19 VACCINE (2023-2 5 season) 2024 DEPRESSION SCREENING 09/02/2024 12/01/2022 INFLUENZA VACCINE (Season Ended) 2025 05/20/20 17 ZOSTER VACCINE (1 of 2) 2037 HIB VACCINE Aged Out No longer eligi ble based on patient's age to complete this topic HPV VACCINE Aged Out No longer eligi ble based on patient's age to complete this topic MENINGOCOCCAL (Group B) VACC INE SHARED DECISION-MAKING Aged Out No longer eligibl e based on patient's age to complete this topic MENINGOCOCCAL GROUPS A/C/Y/W VACCINE Aged Out No longer eligible b ased on patient's age to complete this topic PNEUMOCOCCAL VACCINE Aged Out No long er eligible based on patient's age to complete this topic Care Teams Compliance Technician Relationship Specialty [place] [address] [place] [id number] PCP - General 05/17/20
--- OUTSIDE RECORDS SUMMARY | 2024-12-11 19:02 | XMS_ITS | Data Portability ---
Author Organization [place] [facility], Main Office Address [address] [place] [address] Care Team Providers Care Brass Pourer Name Role Phone TALAT BHAKTA Primary Care Provider TALAT BHAKTA Referring Provider Assessment Encounter Date Assessment Date Assessment LastModified by Organization Details LastModified Time 01/08/2024 01/08/2024 38-year-old female presents for follow-up of her right knee status post knee scope and meniscus repair on 11/21/2023. She feels the knee has improved since her last visit but still has discomfort. She stopped wearing the brace we gave her a few weeks ago and transitioned to a short version she got at [facility], as this was more comfortable for her. Incisions are clean dry intact without any signs of infection. She has no focal tenderness around the knee. Range of motion 0-130. Neurovascular intact. We discussed that she no longer needs to wear a brace. She feels that the leg is weak and she would like to attend physical therapy. 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 Follow up in 6 weeks for recheck. Not available 01/08/2024 16:09:23 03/04/2024 03/04/2024 38 year old female presents for follow up after knee scope and meniscus repair on 11/21/23. Still reports some tightness. Has been wearing a brace which is helping. Doing PT, but was unable to do because she changed her job. Not having catching or locking. Incisions well healed. ROM 0-110. Mildly antalgic gait. Stable ligaments. Negative Delbert. We will have her resume NSAIDs as well as PT. She should continue working on ROM and strengthening. Follow up in 3 months. Not available 03/06/2024 22:34:04 04/07/2024 04/07/2024 38 year old female presents for new problem of right knee and ankle pain. She stepped off of an uneven sidewalk and rolled her ankle and hyperextended the knee. Since then she has had pain and stiffness. She has tried ibuprofen which only helps some. Patient underwent a knee scope and meniscus repair with Dr. Jackson on 11/21/23 and was still lacking range of motion at her last appointment. Imaging: Xrays of both right ankle and knee were reviewed. No acute bony abnormalities or fractures. Preserved joint spaces. Incisions well healed. ROM 5-110. Antalgic gait. Stable ligaments. Pain with palpitation over medial joint line and over patellar tendon. Positive [facility]. Tenderness with palpitation over lateral ankle, no pain over bone or elsewhere around the foot. Able to perform ankle ROM. We discussed that she likely sprained her ankle. She is walking well in a normal shoe so we discussed icing, elevating, and taking anti-inflammatori es as needed. For the knee we recommend trying a cortisone injection for inflammation and working on PT exercises at home. She is not interested in an injection and plans to take OTC anti-inflammatori es and try lidocaine patches. We can see her back as needed if she does not feel like she is improving over the next few weeks. Otherwise we will see her back in June for her next post-op visit. Not available 04/08/2024 09:43:15 07/01/2024 07/01/2024 38-year-old female presents for follow-up of her right knee. She has a history of a arthroscopy medial meniscus repair on 11/21/2023. She reports still having pain, rated as 6/10. She also has popping and difficulty with bending and straightening. She also reports that she has developed Achilles tendinitis in the back of her heel which has been painful. This has been going on for about a week and a half. She has not had any treatments for this yet. 5-110. Antalgic gait. Stable ligaments. Pain with palpitation over medial joint line and over patellar tendon. Positive Delbert. BMI 45.7. Given her persistent symptoms with the knee, we will send her for an MRI to evaluate the meniscus and see if she has had a new injury. With regards to her new complaint of Achilles tendinitis, we discussed that she can use anti-inflammatori es and topical Voltaren. We will see her back after the MRI. She is in agreement with the plan. Not available 07/01/2024 18:29:54 08/03/2024 08/03/2024 38-year-old female presents for follow-up of her right knee. She has a history of a medial meniscus repair in October of this year. She still has pain with walking and difficulty bending the knee. She reports pain primarily over the front of the knee, as well as over the hamstrings. She currently rates her pain 6/10. She has been taking anti-inflammatori es. 5-110. Antalgic gait. Stable ligaments. Pain with palpitation over medial joint line and over patellar tendon. Also tenderness with palpation over the hamstrings. Positive [facility]. BMI 45.7. MRI was reviewed, demonstrating intact meniscus, per the report there is some fraying at the free edge of the medial meniscus, and also chondromalacia of the patellofemoral joint we discussed that her previous repair site looks fine on MRI. She does have some patellofemoral arthritis that could be contributing to her anterior knee pain. Her posterior knee pain is coming from over the hamstrings. We will continue with conservative management with physical therapy and a refill for her meloxicam. I also recommended a cortisone injection given her persistent symptoms. We will see her back in 6 weeks after the course of treatment if no improvement. Not available 08/03/2024 12:54:26 Plan of Treatment Reminders Order Date Submit Date Provider Last Modified By Organization Details Last Modified Time Details Appointments None recorded. Lab None recorded. Referral physical therapist referral - continuatio n of therapy R knee 2023 024 [facility] [place], [address] [place] [address], [place], [address], 11:06:38 physical therapist referral - cont....pat ient will call to schedule [address] [facility] [place], [address] [place], [address], 14:54:07 physical therapist referral - Please contact pt to schedule for R knee post op meniscus repair (11/21/2023) . Thanks [address] [facility] [place], [address] [place], [address], 4 17:16:55 Procedures injection/a spiration joint/bursa (PROC) 2023 [email or web address] In-Office Order, Internal Use Only DO Not Attach Compendium DO Not Attach Compendium, Do Not Delete/merge, [id number] 12:28:56 Surgeries None recorded. Imaging MRI, knee, w/o contrast 2023 [facility] ([facility]), [address], [place], [address], 4 16:13:10 Medication Orders bupivacaine HCl 0.5 % (5 mg/mL) injection solution 2023 [id number], [address] , [place], [address], 4 11:06:38 Kenalog 10 mg/mL suspension for injection 2023 [id number], [address], [place], [address], 4 11:06:38 meloxicam 15 mg tablet [id number], [address] , [place], [address], 4 11:06:38 Mobic 15 mg tablet 2023 024 [id number], [address], [place], [address], 14:54:07 Patient TargetsNo targets recorded. Patient InstructionsNo instructions recorded. Reason for Referral Physical Therapist Referral for Pain of right knee joint R knee Please contact pt to schedule for R knee post op meniscus repair (11/21/2023) . Thanks Referring Physician: Lesia Randolph, Orthopedic Surgery, Encounter Date: 01/08/2024 Physical Therapist Referral for Pain of right knee joint cont....patient will call to schedule Referring Physician: Rao Jackson, Orthopedic Surgery, Encounter Date: 03/04/2024 Physical Therapist Referral for Tear of medial meniscus of knee R knee continuation of therapy R knee Referring Physician: Rao Jackson, Orthopedic Surgery, Encounter Date: 08/03/2024 Results Created Date Observation Date Name Description Value Unit Range Abnormal Flag Note LastModifiedBy Organization Detail LastModifiedTime 04/06/20 24 04/06/2024 XR, knee, 4 or more view No observ ation record ed. [email or web address] Not Available 01/2024 16:27:27 04/06/20 24 04/06/2024 XR, ankle , 3 or more view No observ ation record ed. [email or web address] Not Available 01/2024 16:27:27 07/20/20 24 07/20/2024 MRI, knee, w/o contr ast No observ ation record ed. [email or web address] [facility] [address] [place], [address], 07/20/2024 16:14:57 Result Notes None recorded. Problems Name Problem SNOMED Code Status Onset Date Resolution Date Notes Provider Name and Address Organization Details Recorded Time Sprain of right ankle 1729514287655 9105 Active 2020 Not Available [facility] 3 16:10:16 Pain of right ankle joint 8298793883603 9106 Active 2021 Not Available [facility] 3 16:10:16 Postoperat jeanne visit 589741863 Active 2020 Not Available [facility] 3 16:10:16 Ankle joint effusion 275968411 Active 2021 Not Available [facility] 3 16:10:16 Postoperat jeanne pain 190445706 Active 2020 Not Available [facility] 3 16:10:17 Right sided abdominal pain 386323119 Active Not Available [facility] 3 16:10:17 Stiffness of right ankle 3257555889767 04 Active 2021 Not Available [facility] 3 16:10:17 Adhesive capsulitis of shoulder 680237838 Active Not Available [facility] 3 16:10:17 Patellofem oral stress syndrome 023498675 Active 2021 Not Available [facility] 3 16:10:17 Foot pain 26845942 Active 2021 Not Available [facility] 3 16:10:17 Closed fracture of phalanx of foot 79236864 Active Not Available [facility] 3 16:10:17 Pain in limb 75282130 Active Not Available [facility] 3 16:10:17 Pain of right knee joint 2459622209034 00 Active 2022 ESTEFANI Reis, [place] [facility] 3 11:05:55 Effusion of joint of right knee 3472689016340 04 Active 2022 YASMINE Agrawal [address], [address], [place], [address] , [facility] 3 12:27:57 Derangemen t of right knee 8189932576127 9109 Active 2022 YASMINE Agrawal [address], [address], [place], [address] , [facility] 3 15:04:19 Tear of medial meniscus of knee 986390286 Active 2023 Rao Jackson MD [address], [address], [place], [address] , [facility] 4 00:14:46 Tear of medial meniscus of knee 270331397 Active 2023 Rao Jackson MD [address], [place], [address] , [facility] 4 17:35:35 Synovial plica syndrome of right knee 3414492037235 00 Active 2023 Rao Jackson MD [address], [place], [address] , [facility] 4 17:35:44 Problem Notes None recorded. Procedures Surgical History Date Name Laterality Status Provider Name and Address Organization Details Recorded Time 08/03/20 24 Ortho - Cortisone Injection completed Rao Jackson MD [address], [place], [address], [facility] [employer] [facility] 08/03/2024 12:54:35 11/21/19 24 Knee Surgery completed TEE Whatley [facility] 02/10/2024 16:00:11 Tonsillectomy completed Not Available [facility] 10/31/2022 16:10:02 Ankle Surgery completed Not Available [facility] 10/31/2022 16:10:02 Imaging Results Imaging Date Name Status LastModified by Organiz ation Details LastModified Time 04/06/2024 XR, knee, 4 or more view completed Information not available 04/06/2024 16:27:27 04/06/2024 XR, ankle, 3 or more view completed Information not available 04/06/2024 16:27:27 07/20/2024 MRI, knee, w/o contrast completed [address] [place], [address], 07/20/2024 16:14:57 Procedure Notes None recorded. Medical Equipment None Reported. Allergies Allergen ID Allergen Name Allergen Category Reaction Reaction Severity Criticality Documentation Date Start Date Code Code System Note Provider Name and Address Organization Details Recorded Time 68274 acetamino phen / hydrocodo ne medicatio n Not available Not available Not available 10/31/2022 19547 2 RxNorm Not Available [facility] 3 16:11:19 57077 Toradol medicatio n Not available Not available Not available 10/31/2022 44322 RxNorm Not Available [facility] 3 16:11:19 Medications Name Sig Start Date Stop Date Status Note LastModified by Organization Details LastModified Time quetiapine 25 mg tablet TAKE 1 TABLET BY MOUTH EVERYDAY AT BEDTIME active Not Available Not Available No t Available cyclobenzap rine 10 mg tablet TAKE 1 TABLET BY MOUTH AT BEDTIME FOR 8-10 DAYS 06/26 completed Not Available Not Available Not Available amoxicillin 500 mg capsule TAKE 1 CAPSULE BY MOUTH EVERY 8 HOURS FOR 10 DAYS 06/26 completed Not Available Not Available Not Available medroxyprog esterone 10 mg tablet TAKE 1 TABLET BY MOUTH EVERY DAY AT BEDTIME DAY 1-10 12/15 completed Not Available Not Available Not Available methocarbam ol 500 mg tablet 06/26 completed Not Available Not Available Not Available terbinafine HCl 1 % topical cream active Not Available Not Available Not Available metformin 500 mg tablet 06/26 completed Not Available Not Available Not Available bupropion HCl SR 150 mg tablet,12 hr sustained-r elease TK 1 T PO QD 06/26 completed Not Available Not Available Not Available prednisone 10 mg tablet TAKE 1TAB BY MOUTH 3XDAILY X3DAYS, 1TAB 2X DAILY X2DAYS, 1 TAB DAILY X1DAY 08/02 completed Not Available Not Available Not Available doxycycline hyclate 100 mg capsule active Not Available Not Available N ot Available clindamycin HCl 300 mg capsule 06/26 completed Not Available Not Available Not Available diphenhydra mine 50 mg capsule active Not Available Not Available Not Available cetirizine 10 mg tablet TAKE 1 TABLET BY MOUTH EVERY DAY 06/26 completed Not Available Not Available Not Available azithromyci n 250 mg tablet TAKE 2 TABLETS BY MOUTH TODAY, THEN TAKE 1 TABLET DAILY FOR 4 DAYS 06/26 completed Not Available Not Available Not Available ibuprofen 800 mg tablet TAKE 1 TABLET BY MOUTH THREE TIMES A DAY 12/15 completed Not Available Not Available Not Available ofloxacin 0.3 % eye drops INSTILL 1-2 DROPS IN AFFECTED EYE 4 TIMES A DAY NEEDED FOR 7 DAYS 05/28 completed Not Available Not Available Not Available nystatin 100,000 unit/gram topical ointment APPLY TO AFFECTED AREA TWICE DAILY AND NEEDED 01/05 completed Not Available Not Available Not Available ranitidine 300 mg tablet 06/26 completed Not Available Not Available Not Available clarithromy khoi 500 mg tablet active Not Available Not Available Not Available cephalexin 250 mg capsule 250 MG ORALLY EVERY 6 HOURS FOR 7 DAYS 06/26 completed Not Available Not Available Not Available Q-Dryl 25 mg capsule active Not Available Not Available N ot Available meloxicam 15 mg tablet Take 1 tablet every day by oral route as needed for 30 days. active Not Available Not Available No t Available naltrexone 50 mg tablet TAKE 1 TABLET BY MOUTH EVERYDAY AT BEDTIME active Not Available Not Available No t Available metronidazo le 0.75 % (37.5 mg/5 gram) vaginal gel INSERT 1 APPLICATO RFUL PER VAGINA AT BEDTIME FOR 5 DAYS 06/26 completed Not Available Not Available Not Available ondansetron HCl 4 mg tablet TAKE 1 TABLET BY MOUTH EVERY 8 HOURS 12/15 completed Not Available Not Available Not Available famotidine 40 mg tablet TAKE 1 TABLET BY MOUTH EVERY DAY IN THE EVENING 10/15 completed Not Available Not Available Not Available bupivacaine HCl 0.5 % (5 mg/mL) injection solution Take 4 mL by injection route. 2023 active Not Available Not Available Not Avai lable prednisone 20 mg tablet TAKE 1 TABLET BY MOUTH EVERY DAY 06/26 completed Not Available Not Available Not Available spironolact one 100 mg tablet 06/26 completed Not Available Not Available Not Available clindamycin HCl 150 mg capsule TK 2 CS PO Q 8 H 06/26 completed Not Available Not Available Not Available metronidazo le 500 mg tablet TAKE 1 TABLET BY MOUTH EVERY 12 HOURS FOR 7 DAYS 06/26 completed Not Available Not Available Not Available phentermine 37.5 mg tablet TAKE 1 TABLET BY MOUTH EVERY DAY 06/26 completed Not Available Not Available Not Available acyclovir 400 mg tablet 06/26 completed Not Available Not Available Not Available sulfamethox azole 800 mg-trimetho prim 160 mg tablet TAKE 1 TABLET BY MOUTH EVERY 12 HOURS 06/26 completed Not Available Not Available Not Available omeprazole 40 mg capsule,del ayed release TAKE 1 CAPSULE BY MOUTH EVERY DAY BEFORE MEAL(S). active Not Available Not Available No t Available tramadol 50 mg tablet 06/26 completed Not Available Not Available Not Available amoxicillin 500 mg tablet active Not Available Not Available Not Available acyclovir 800 mg tablet 06/26 completed Not Available Not Available Not Available ondansetron 8 mg disintegrat ing tablet 06/26 completed Not Available Not Available Not Available prednisone 10 mg tablets in a dose pack Take 1 tab by mouth, 3 times a day for 3 daysTake 1 tab by mouth 2 times a day for 2 daysTake 1 tab by mouth once a day for 1 day 08/02 completed Not Available Not Available Not Available meloxicam 7.5 mg tablet 06/26 completed Not Available Not Available Not Available oxycodone-a cetaminophe n 5 mg-325 mg tablet TAKE 1 TABLET BY MOUTH EVERY 8 HOURS NEEDED FOR 7 DAYS 05/28 completed Not Available Not Available Not Available amoxicillin 875 mg tablet 06/26 completed Not Available Not Available Not Available ziprasidone 20 mg capsule TAKE 1 CAPSULE BY MOUTH TWICE A DAY 06/26 completed Not Available Not Available Not Available famotidine 20 mg tablet TAKE 1 TABLET BY MOUTH EVERY DAY 06/26 completed Not Available Not Available Not Available amitriptyli ne 25 mg tablet TAKE 1 TABLET BY MOUTH EVERY DAY 06/26 completed Not Available Not Available Not Available gentamicin 0.3 % eye drops 06/26 completed Not Available Not Available Not Available dicyclomine 20 mg tablet TAKE 1 TABLET BY MOUTH 3 TIMES A DAY 06/26 completed Not Available Not Available Not Available ciprofloxac in 0.3 % eye drops active Not Available Not Available No t Available Kenalog 10 mg/mL suspension for injection Take 1 mL by injection route. 2023 active UTC: 0003- 0494- 20 Not Available Not Available Not Available meclizine 25 mg tablet 06/26 completed Not Available Not Available Not Available benzonatate 100 mg capsule TAKE 1 CAPSULE BY MOUTH EVERY 8 HOURS NEEDED active Not Available Not Available No t Available doxycycline monohydrate 100 mg capsule TAKE 1 CAPSULE BY MOUTH TWICE A DAY 06/26 completed Not Available Not Available Not Available pantoprazol e 40 mg tablet,jeison yed release active Not Available Not Available Not Available oseltamivir 75 mg capsule TAKE 1 CAPSULE BY MOUTH EVERY 12 HOURS X5 DAYS 07/21 completed Not Available Not Available Not Available lidocaine 5 % topical patch 07/21 completed Not Available Not Available Not Available promethazin e 25 mg tablet 06/26 completed Not Available Not Available Not Available progesteron e micronized 200 mg capsule TAKE 1 CAPSULE BY MOUTH AT BEDTIME ON DAYS 1 12 OF MONTH 06/26 completed Not Available Not Available Not Available docusate sodium 100 mg capsule TAKE 1 CAPSULE BY MOUTH EVERY DAY 06/26 completed Not Available Not Available Not Available omeprazole 20 mg capsule,del ayed release TAKE 1 CAPSULE BY MOUTH EVERY DAY BEFORE MEALS 06/26 completed Not Available Not Available Not Available folic acid 1 mg tablet 06/26 completed Not Available Not Available Not Available hydroxyzine HCl 25 mg tablet TAKE 1 TABLET BY MOUTH TWICE A DAY NEEDED active Not Available Not Available No t Available ergocalcife rol (vitamin D2) 1,250 mcg (50,000 unit) capsule TAKE 1 CAPSULE BY MOUTH ONE TIME PER WEEK active Not Available Not Available No t Available ibuprofen 600 mg tablet TAKE 1 TABLET BY MOUTH EVERY 6 HOURS NEEDED WITH FOOD 10/15 completed Not Available Not Available Not Available methylpredn isolone 4 mg tablets in a dose pack TAKE 6 TABLETS ON DAY 1 DIRECTED ON PACKAGE AND DECREASE BY 1 TAB EACH DAY FOR A TOTAL OF 6 DAYS 10/15 completed Not Available Not Available Not Available albuterol sulfate HFA 90 mcg/actuati on aerosol inhaler INHALE 2 PUFFS BY MOUTH EVERY 4 HOURS NEEDED active Not Available Not Available No t Available ondansetron 4 mg disintegrat ing tablet TAKE 1 TABLET BY MOUTH EVERY 8 HOURS NEEDED FOR NAUSEA FIRST LINE 10/15 completed Not Available Not Available Not Available fluticasone propionate 50 mcg/actuati on nasal spray,suspe nsion INSTILL 2 SPRAYS INTO EACH NOSTRIL DAILY 06/26 completed Not Available Not Available Not Available metformin ER 500 mg tablet,exte nded release 24 hr 06/26 completed Not Available Not Available Not Available naproxen 500 mg tablet TAKE 1 TABLET BY MOUTH EVERY 12 HOURS FOR 8-10 DAYS 06/26 completed Not Available Not Available Not Available amoxicillin 875 mg-potassiu m clavulanate 125 mg tablet TAKE 1 TABLET BY MOUTH EVERY 12 HOURS FOR 10 DAYS 10/15 completed Not Available Not Available Not Available Microgestin Fe 1.5/30 (28) 1.5 mg-30 mcg (21)/75 mg (7) tablet 06/26 completed Not Available Not Available Not Available aripiprazol e 5 mg tablet TAKE 1 TABLET BY MOUTH EVERY DAY 06/26 completed Not Available Not Available Not Available Se- 19 Chewable 29 mg iron-1 mg tablet TAKE 1 TABLET BY MOUTH EVERY DAY 07/21 completed Not Available Not Available Not Available Plus (calcium carbonate) 27 mg iron-1 mg tablet active Not Available Not Available Not Available ropivacaine (PF) 5 mg/mL (0.5 %) injection solution Take 20 mg by injection route. 08/02 completed Not Available Not Available Not Available Antacid-Ant igas 200 mg-200 mg-20 mg/5 mL oral suspension TAKE 15 ML BY MOUTH EVERY 6 HOURS NEEDED FOR HEARTBURN OR NAUSEA/VO MITING 06/26 completed Not Available Not Available Not Available Gregorio Higgins [facility] spacer DIRECTED 06/26 completed Not Available Not Available Not Available Trulicity 1.5 mg/0.5 mL subcutaneou s pen injector INJECT 1.5 MG SUBCUTANE OUSLY ONCE WEEKLY 12/15 completed Not Available Not Available Not Available Trulicity 0.75 mg/0.5 mL subcutaneou s pen injector INJECT THE CONTENTS OF 1 PEN UNDER THE SKIN ONCE WEEKLY 12/15 completed Not Available Not Available Not Available Slynd 4 mg (28) tablet 06/26 completed Not Available Not Available Not Available Vitals Date Recorded Body height Body mass index (BMI) Body weight Provider Name and Address Organization Details Last Updated DateTime 01/08/2024 157.48 cm 44.8 kg/m2 616194.13 g Ingrid Hdez, ATC L [facility] 01/08/2024 14:19:16 Date Recorded Body height Body mass index (BMI) Body weight Provider Name and Address Organization Details Last Updated DateTime 03/04/2024 157.48 cm 45.7 kg/m2 439146.09 g Diann Maik [facility] [employer] [facility] 03/04/2024 14:47:34 Date Recorded Body height Body mass index (BMI) Body weight Pain severity - 0-10 verbal numeric rating [Score] - Reported Provider Name and Address Organization Details Last Updated DateTime 04/07/2024 157.48 cm 45.7 kg/m2 224557.09 g Alta Candace Arroyo [facility] [employer] [facility] 04/07/2024 09:13:57 Date Recorded Body height Body mass index (BMI) Body weight Pain severity - 0-10 verbal numeric rating [Score] - Reported Provider Name and Address Organization Details Last Updated DateTime 07/01/2024 157.48 cm 45.7 kg/m2 893654.09 g [facility] 07/01/2024 14:13:14 Date Recorded Body height Body mass index (BMI) Body weight Pain severity - 0-10 verbal numeric rating [Score] - Reported Provider Name and Address Organization Details Last Updated DateTime 08/03/2024 157.48 cm 45.7 kg/m2 102830.09 g 6 [facility] 08/03/2024 12:09:12 Social History Question Answer Notes LastModified by Organizat ion Details LastModified Time Tobacco Smoking Status Never Smoker Not Available [facility] 10/31/2022 16:10:01 What Is Your Level Of Alcohol Consumption? None [id number] Information not available 10/31/2022 If You Are , What Was Your Level Of Alcohol Consumption Prior To ? Occasional [email or web address] Information not available 08/03/2024 What Was The Date Of Your Most Recent Tobacco Screening? 08/03/2024 [email or web address] Information not available 08/03/2024 Have You Recently Traveled Abroad? No [id number] Information not available 10/31/2022 Sex: Unknown Functional Status None recorded. Mental Status None recorded. Family History Relationship Description Onset Age of this Age Resolved Age Notes LastModified by Organization Details LastModified Time Father No current problems or disability [email or web address] Not available 10/2023 11:56:41 Mother No current problems or disability [email or web address] Not available 10/2023 11:56:41 Mother Family history of malignant neoplasm [email or web address] Not available 08/03 11:56:41 Mother Complication of anesthesia [email or web address] Not available 10/2023 11:56:41 Mother Hypertensive disorder [id number] Not available 10/31/2022 16:10:02 Medical History Condition Response ALLERGIES/HAYFEVER Y LUNG DISEASE/DISORDER N INSOMNIA N RADIATION / CHEMOTHERAPY N COPD N RHEUMATOID ARTHRITIS N HIGH CHOLESTEROL / HYPERLIPIDEMIA N EDEMA N CAROTID BLOCKAGE N DEPRESSION (INCLUDING POST ) Y BOWEL PROBLEMS N BACK / NECK PROBLEMS Y HAVE YOU BEEN HOSPITALIZED OR SEEN IN [facility] ER IN THE PAST YEAR ? N STROKE/TIA N THYROID DISEASE N OBESITY Y HISTORY WITH COMPLICATIONS WITH ANESTHES IA ? N ANEURYSM N FIBROMYALGIA N OSTEOPOROSIS N URINARY/BLADDER/KIDNEY PROBLEMS N CORONARY ARTERY DISEASE (CAD) N Do you have Advance directive? N ARTHRITIS N Do you have a healthcare POA? N RESPIRATORY PROBLEMS N USE OF BLOOD THINNERS N NO SIGNIFICANT PAST MEDICAL HISTORY N DIABETES, TYPE N PERIPHERAL VASCULAR DISEASE N HEARTBURN / REFLUX N Do you have a living will? N BLOOD CLOTS N HEPATITIS / LIVER DISEASE N PULMONARY DISEASE N USE OF NSAIDS N GOUT N ALZHEIMER'S DISEASE N PAIN N HERPES N SEIZURES/EPILEPSY N HEADACHES/MIGRAINES N CHF N VASCULAR DISEASE N Blood Disorder N DIZZINESS Y NEUROPATHY N KIDNEY DISEASE N HEART DISEASE/HEART PROBLEMS N AIDS/HIV N MENTAL DISORDER/ILLNESS N LIVER DISEASE N HYPERTENSION N CARDIAC ARRHYTHMIA N CANCER: SPECIFY N TOURETTE'S N ANXIETY DISORDER Y ANESTHESIA COMPLICATIONS N ANEMIA/BLOOD DISORDER Y BIPOLAR DISORDER N OSTEOARTHRITIS N TUBERCULOSIS N FOOT PROBLEM N Gynecological HistoryNo gynecological history recorded. Obstetrics History GPAL:G 0 P 0 0 0 0 Past Encounters Encounter ID Performer Location Encounter Start Date Encounter Closed Date Diagnosis/Indication Diagnosis SNOMED-CT Code Diagnosis ICD10 Code Diagnosis Note [id number] [facility] [place] [address] [place] [address] 02/22/2021 00:00:00 02/23/2021 08:42:44 [id number] [facility] [place] [address] [place] [address] 03/27/2021 00:00:00 03/28/2021 12:15:00 [id number] [facility] [place] [address] [place] [address] 04/24/2021 00:00:00 04/25/2021 06:42:32 [id number] [facility] [place] [address] [place] [address] 05/22/2021 00:00:00 05/23/2021 11:46:04 [id number] [facility] [place] [address] [place] [address] 06/29/2021 00:00:00 06/30/2021 10:23:36 [id number] [facility] [place] [address] [place] [address] 07/06/2021 00:00:00 07/09/2021 21:14:39 [id number] [facility] [place] [address] [place] [address] 07/20/2021 00:00:00 07/22/2021 14:21:20 [id number] [facility] [place] [address] [place] [address] 08/10/2021 00:00:00 08/15/2021 11:29:23 [id number] [facility] [place] [address] [place] [address] 09/14/2021 00:00:00 09/15/2021 09:29:57 [id number] [facility] [place] [address] [place] [address] 11/02/2021 00:00:00 11/06/2021 10:16:59 [id number] [facility] [place] [address] [place] [address] 02/12/2022 00:00:00 02/13/2022 09:10:47 [id number] [facility] [place] [address] [place] [address] 03/26/2022 00:00:00 03/27/2022 11:26:34 [id number] [facility] [place] [address] [place] [address] 05/28/2022 00:00:00 05/30/2022 18:03:17 [id number] [facility] [place] [address] [place] [address] 06/26/2022 00:00:00 06/26/2022 16:20:[id number] [address] 01/25/2021 00:00:00 01/25/2021 16:46:[id number] [address] 02/23/2021 00:00:00 02/25/2021 21:20:[id number] [address] 03/23/2021 00:00:00 03/23/2021 15:29:17 [id number] YASMINE Agrawal [facility] [place] [address] [place] [address] 08/02/2023 11:01:53 08/02/2023 12:11:56 Pain of right knee joint [id number] M25.561 Effusion o f joint of right knee [id number] 65917 M25.107 [id number] YASMINE Agrawal [facility] [place] [address] [place] [address] 08/08/2023 14:25:34 08/08/2023 14:59:09 Effusion of joint of right knee [id number] 71649 M25.461 Pain of ri ght knee joint [id number] 17800 M25.561 Derangemen t of right knee [id number] M23.91 [id number] Rao Jackson MD [facility] [place] [address] [place] [address] 09/11/2023 14:05:37 09/11/2023 14:23:25 Pain of right knee joint [id number] 91221 M25.561 Tear of me dial meniscus of knee [id number] S83.241A [id number] Rao Jackson MD [facility] [place] [address] [place] [address] 10/16/2023 14:48:35 10/16/2023 15:44:46 Pain of right knee joint 8507016018 55863 M25.561 Tear of me dial meniscus of knee 434156813 S83.241A Synovial p lica syndrome of right knee 1277575416 41505 M67.51 [id number] Lesia Randolph NP [facility] [place] [address] [place] [address] 12/04/2023 14:11:50 12/04/2023 14:46:45 Pain of right knee joint [id number] 73989 M25.561 Tear of me dial meniscus of knee [id number] S83.241A [id number] Rao Jackson MD [facility] [place] [address] [place] [address] 12/18/2023 13:59:59 12/18/2023 14:59:22 Pain of right knee joint [id number] 79655 M25.561 Tear of me dial meniscus of knee [id number] S83.241A [id number] Lesia Randolph NP [facility] [place] [address] [place] [address] 01/08/2024 14:09:56 01/08/2024 14:56:33 Pain of right knee joint 2319751122 46193 M25.561 Tear of me dial meniscus of knee 581735197 S83.241A [id number] Rao Jackson MD [facility] [place] [address] [place] [address] 03/04/2024 14:44:54 03/04/2024 15:27:49 Pain of right knee joint 8121674007 91411 M25.561 Tear of me dial meniscus of knee 500440637 S83.241D [id number] Lesia Randolph NP [facility] [place] [address] [place] [address] 04/07/2024 09:10:23 04/07/2024 10:17:09 Pain of right knee joint [id number] 35582 M25.676 [id number] Rao Jackson MD [facility] [place] [address] [place] [address] 07/01/2024 14:10:44 07/01/2024 14:50:42 Derangement of right knee [id number] M23.91 Pain of ri ght ankle joint 9746392212 [id number] M25.571 Postoperative visit 1836 [id number] [id number] Rao Jackson MD [facility] [place] [address] [place] [address] 08/03/2024 11:55:37 08/03/2024 12:35:35 Tear of medial meniscus of knee [id number] S83.241D Pain of ri ght knee joint [id number] 15161 M25.561 Health Concerns Section Related Observation LastModified by Organization Detai ls LastModified Time None Recorded Concern Status LastModified by Organization Details LastModified Time None Recorded Advance Directives Directive None Recorded Payers Encounter Date Sequence Insurance Name Policy Number Policy Mahmood Covered Member ID Mahmood Member ID Guarantor Name 01/08/2024 1 FORMERLY [facility] (MEDICAID HMO) [id number] Holly N [place] [id number] Holly N [place] 03/04/2024 1 FORMERLY [facility] (MEDICAID HMO) [id number] Holly N [place] [id number] Holly N [place] 04/07/2024 1 FORMERLY [facility] (MEDICAID HMO) [id number] Holly N [place] [id number] Holly N [place] 07/01/2024 1 FORMERLY [facility] (MEDICAID HMO) [id number] Holly Raphael [place] [id number] Holly N [place] 08/03/2024 1 FOR[facility]LY [facility] (MEDICAID HMO) [id number] Holly N [place] [id number] Holly Raphael [place] OBGyn Episode No OBEpisode recorded.
[2024-12-11 19:09] VITALS: BP 144/84; PULSE 88; RESP 20; TEMP 36.5; O2SAT 100
--- NOTE | 2024-12-11 20:11 | PC.NURSE ---
december 07 positive test. december 10 noted bleeding that has been increasing- pt using panty liners that have been filled
--- OUTSIDE RECORDS SUMMARY | 2024-12-11 20:36 | XMS_ITS | Clinical Summary ---
Author Organization [facility] Address [address] [place] [address] Care Team Providers Care Histologic Technician Name Role Phone Adilia Conde MD Primary Care Provider Allergies Active Allergy Reactions Criticality Noted Date Comments Tramadol Palpitations Low 05/13/2024 Hydrocodone-Acetaminophen Nausea & Vomiting Low 07/2024 Medications dicyclomine (BENTYL) 20 mg tabletIndication s:Abdominal Pain with Cramps Take 1 tablet (20 mg total) by mouth every 6 (six) hours as needed (Abdominal cramps) 20 tablet 10/07/2020 Active ondansetron (ZOFRAN) 4 mg tablet Take 1 tablet (4 mg total) by mouth every 6 (six) hours as needed for nausea 20 tablet 10/07/2020 Active Active Problems No known active problems Medical History Medical History Date Comments Depression Bipolar 1 disorder (HCC) might b e type 2 Personality disorder (HCC) PTSD (post-traumatic stress disorder) Social History Tobacco Use Types Packs/Day Years Used Date Smoking Tobacco: Never Smokeless Tobacco: Never Tobacco Cessation:Counseling Given: Not Answered Alcohol Use Standard Drinks/Week Comments Yes 0 (1 standard drink = 0.6 oz pur e alcohol) 1.5 pint vodka q other day Personal Safety Answer Date Recorded Have you ever been in or are you currently in a harmful physical or emotional relationship or is someone making you feel afraid or unsafe? 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 Gender Identity Not on file Sexual Orientation Not on file Obstetrics History Last Filed Vital Signs Vital Sign Reading Time Taken Comments Blood Pressure 126/73 05/13/2024 4:03 PM CDT Pulse 84 05/13/2024 4:03 PM CDT Temperature 36.7 C (98.1 F) 05/13/2024 12:04 PM CDT Respiratory Rate 18 05/13/2024 4:03 PM CDT Oxygen Saturation 98% 05/13/2024 4:03 PM CDT Inhaled Oxygen Concentration - - Weight 113.4 kg (250 lb) 05/13/2024 2:49 AM CDT Height 157.5 cm (5' 2 ) 05/13/2024 2:49 AM CDT Body Mass Index 45.73 05/13/2024 2:49 AM CDT Plan of Treatment Health Maintenance Due Date Last Done Comments Cervical Cancer Screening 1987 Depression Screening 1987 Hepatitis C Screening 1987 Varicella Vaccines (1 of 2 - 13+ 2-dose series) 2000 Regular Well Visit/Exam 18-64 2005 Influenza Vaccine (#1) 2024 05/20/2017 DTaP/Tdap/Td Vaccine (7 - Td or Tdap) 01/12/2025 01/12/2015, 04/09/2002, 06/09/1992, Additional history exists Hepatitis B Screening Completed 12/09/1998 , 07/18/1998, 12/13/1997 HPV Vaccines Aged Out No longer eligi ble based on patient's age to complete this topic Pneumococcal vaccine <65 Aged Out No longer eligible based on patient's age to complete this topic Insurance [facility] Care Teams Histologic Technician Relationship Specialty Start Date End Date Adilia Conde MD [address] [address] PCP - General Gastroenterology 05/13/24
--- OUTSIDE RECORDS SUMMARY | 2024-12-11 20:36 | XMS_ITS | Clinical Summary ---
Author Organization [facility] Address [address] [place] [address] Care Team Providers Care Automatic Mold Sander Name Role Phone Adilia Conde MD Primary Care Provider + [phone] [facility],non-[facility] Affiliates and Associated Physician Practices is amultiple site organization consisting of ambulatory clinics and hospital sitesin [place], [place], [place] and [place]. This disclosure is being madepursuant to the Care Everywhere program and may not contain all information available regarding this patient. Last updated 18.[facility] Allergies Active Allergy Reactions Criticality Noted Date [...] Take 1 (one) tablet by mouth Active mewwglml-fbmgrmllb-i imethicone (MAALOX;MYLANTA) 200-200-20 MG/5ML suspension Take 15 [...] age to complete this topic Care Teams Automatic Mold Sander Relationship Specialty [place] [address] [place] [phone] PCP - General 05/17/20
--- OUTSIDE RECORDS SUMMARY | 2024-12-11 20:36 | XMS_ITS | Referral Summary ---
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
--- OUTSIDE RECORDS SUMMARY | 2024-12-11 20:36 | XMS_ITS | Clinical Summary ---
Author Organization [facility] Address [address] [place] [address] Phone Care Team Providers Care Printer Machine Name Role Phone Adilia Conde MD Primary [...] this topic Insurance MEDICAID [place] Care Teams Printer Machine Relationship Specialty Start Date End Date Adilia Conde MD [address] [place] [address] PCP - General Internal Medicine 01/24/21 Blas Zapata MD [address] [address] Consulting Physician Endocrinology 01/08/23
--- NOTE | 2024-12-11 20:52 | ED_ITS ---
HPI - Abdominal Pain General Chief Complaint: Abdominal Pain Stated Complaint: 6 weeks preg, cramping, headache, Time Seen by Provider: 12/11/24 20:08 Source: patient Mode of arrival: ambulatory Limitations: no limitations History of Present Illness HPI narrative: This is a 39 year old female that presents to the ER for vaginal bleeding. Reports she is about 6 weeks . Reports over the last 2 days she has had bleeding, cramping, headache, anorexia. Her OB is Dr. Corbett. Related Data Home Medications ?Medication ?Instructions ?Recorded ?Confirmed ?Last Taken ?Type quetiapine 25 mg tablet mg 09/16/24 Unknown History Allergies Allergy/AdvReac Type Severity Reaction Status Date / Time hydrocodone AdvReac Mild Vomiting Verified 09/16/24 22:43 tramadol AdvReac Unknown ANXIETY/HEART Verified 09/16/24 22:43 RACING Review of Systems 2 Review of Systems: CONSTITUTIONAL: Denies fever GASTROINTESTINAL: Reports abdominal pain. Denies nausea, vomiting GENITOURINARY: Denies dysuria All systems reviewed & are unremarkable except as noted in HPI and below PMFSH Past Medical History Medical History COVID-19 Menorrhagia Ectopic treated with methotrexate (normal spontaneous vaginal delivery) Bipolar 1 disorder PCOS (polycystic ovarian syndrome) Morbid obesity Anxiety Asthma Migraine Surgical History Surgical History History of dental surgery History of adenoidectomy Hx of tonsillectomy Family History Family History Father Unknown family medical history Mother Hypertension Breast cancer Lupus (systemic lupus erythematosus) Social History Social History Smoking status: Never smoker Tobacco type: cigarettes Second hand tobacco smoke exposure: No (Holly reports being a light smoker when drinking) Alcohol intake: current Drinks per week: 2 Alcohol use details: reporting quitting 10/31/2020 Substance use: never Substance use type: does not use Living arrangements: with family Additional living arrangements comments: DAUGHTER Occupation/Education: occupation Gender identity (if verbalized by the patient): Female Sexual Orientation (if Verbalized by the Patient): Straight or Heterosexual Spiritual care concerns: No Exam 2 Narrative: GENERAL: Well-appearing, well-nourished, and in no acute distress. HEAD: Normocephalic, atraumatic. EYES: EOMI. CHEST: Clear to auscultation. No respiratory distress. No wheezes rales or rhonchi HEART: Regular rate and rhythm. No murmur heard. Normal peripheral pulses. ABDOMEN: Soft, nontender, nondistended, normal active bowel sounds. EXTREMITIES: Normal range of motion. No edema. SKIN: Warm, dry, no rash. NEURO: No focal deficits. Alert and oriented x3. PSYCH: Normal mood and affect Course Course Emergency Course: Patient updated on her workup and agrees with plan of care Vital Signs Vital signs: Vital Signs Temperature 97.7 F 12/11/24 19:09 Pulse Rate 88 12/11/24 19:09 Respiratory Rate 20 12/11/24 19:09 Blood Pressure 144/84 H 12/11/24 19:09 Pulse Oximetry 100 12/11/24 19:09 Temperature 97.7 F 12/11/24 22:42 Pulse Rate 76 12/11/24 22:42 Respiratory Rate 20 12/11/24 22:42 Blood Pressure 164/80 H 12/11/24 22:42 Pulse Oximetry 99 12/11/24 22:42 MDM - Abdominal Pain MDM Narrative Medical decision making narrative: Patient presents the emergency department for bleeding in first-trimester . She is afebrile and nontoxic appearing. Her vitals are stable. Hemoglobin is normal. Patient is AB-positive. Urine without evidence of infection. Quantitative HCG 430. No intrauterine noted on ultrasound. Poor vascular flow seen in the right ovary. This was discussed with the radiologist. Reports that may be a technical issue. She is not having any increased pain on the right side. Patient updated on her workup and agrees with plan of care. She is to follow up with her OB. She is given warnings to return to the ER Differential Diagnosis Differential diagnosis: Likely other (Miscarriage, threatened miscarriage) Lab Data Attestation: I reviewed the patient's lab results. 12/11/24 21:14 12/11/24 21:14 Labs: Lab Results 12/11/24 12/11/24 12/11/24 Range/Units 21:14 21:19 22:04 WBC 10.1 H (4.5-10.0) K/mm3 RBC 4.60 (4.2-5.4) M/mm3 Hgb 12.7 (12.0-15.0) g/dL Hct 40.0 (37.0-47.0) % MCV 87.0 (80-100) fl MCH 27.6 (26-34) pg MCHC 31.8 L (32-36) g/dl RDW 14.4 (11.5-14.5) % Plt Count 239 (150-375) k/mm3 MPV 10.8 H (7.4-10.4) fl Immature Gran % (Auto) 0.4 (0-0.5) % Neut % (Auto) 72.4 (45.5-73.1) % Lymph % (Auto) 19.2 (18.3-44.2) % [place] % (Auto) 7.1 (2.6-8.5) % Eos % (Auto) 0.6 (0-4.4) % Baso % (Auto) 0.3 (0.2-1.2) % Lymph # (Auto) 1.93 (0.9-3.2) K/mm3 [place] # (Auto) 0.7 H (0.1-0.6) K/mm3 Eos # (Auto) 0.1 (0-0.3) K/mm3 Baso # (Auto) 0.0 (0.0-0.1) K/mm3 Abs Immat Gran (auto) 0.04 H (0.00-0.031) K/mm3 Absolute Neuts (auto) 7.3 H (1.3-6.7) K/mm3 Absolute Nucleated RBC 0.000 (0.0-0.012) K/mm3 Nucleated RBC % 0.0 (0.0-0.2) % PT 13.2 (11.1-14.7) Seconds INR 1.0 APTT 25.5 (22.3-36.8) Seconds Sodium 136 L (137-145) mmol/L Potassium 4.1 (3.4-5.0) mmol/L Chloride 103 (98-107) mmol/L Carbon Dioxide 26 (22-30) mmol/L Anion Gap 7 (4-12) mmol/L BUN 12 (7-17) mg/dL Creatinine 0.92 (0.7-1.0) mg/dL Estim Creat Clear Calc 91 ml/min Estimated GFR > 60 (59 - ) Glucose 98 (65-110) mg/dL Calcium 9.2 (8.4-10.2) mg/dL Total Bilirubin 0.5 (0.2-1.3) mg/dL AST 21 (14-36) U/L ALT 17 (6-35) U/L Alkaline Phosphatase 76 (38-126) U/L Total Protein 8.0 (6.3-8.2) g/dL Albumin 4.3 (3.5-5.1) g/dL Beta HCG, Quant 430.82 mIU/ML Urine Color Yellow (Yellow) Urine Appearance Clear (Clear) Urine pH 6.0 (5.0-9.0) Ur Specific [place] 1.013 (1.001-1.035) Urine Protein Negative (Negative) mg/dL Urine Glucose (UA) Negative (Negative) mg/dL Urine Ketones Negative (Negative) mg/dL Ur Blood (Man) 3+ H (Negative) Urine Nitrate Negative (Negative) Urine Bilirubin Negative (Negative) Urine Urobilinogen 0.2 (<2.0) mg/dL Leukocyte Esterase Rfl Negative (Negative) JACQUIE/UL Urine RBC 21-50 H (0-2) /hpf Urine WBC 0-5 (0-3) /hpf Ur Squamous Epith Cells Few (Few) /hpf Urine Bacteria None seen /hpf Urine Casts 0-2 POC Urine HCG, Qual (Negative) Blood Type AB Positive Antibody Screen Negative Screen Not Reportable Baby's Blood Type Not Reportable Baby's SAMY Not Reportable Doses of RhIg Required 0 12/11/24 Range/Units 22:20 WBC (4.5-10.0) K/mm3 RBC (4.2-5.4) M/mm3 Hgb (12.0-15.0) g/dL Hct (37.0-47.0) % MCV (80-100) fl MCH (26-34) pg MCHC (32-36) g/dl RDW (11.5-14.5) % Plt Count (150-375) k/mm3 MPV (7.4-10.4) fl Immature Gran % (Auto) (0-0.5) % Neut % (Auto) (45.5-73.1) % Lymph % (Auto) (18.3-44.2) % [place] % (Auto) (2.6-8.5) % Eos % (Auto) (0-4.4) % Baso % (Auto) (0.2-1.2) % Lymph # (Auto) (0.9-3.2) K/mm3 [place] # (Auto) (0.1-0.6) K/mm3 Eos # (Auto) (0-0.3) K/mm3 Baso # (Auto) (0.0-0.1) K/mm3 Abs Immat Gran (auto) (0.00-0.031) K/mm3 Absolute Neuts (auto) (1.3-6.7) K/mm3 Absolute Nucleated RBC (0.0-0.012) K/mm3 Nucleated RBC % (0.0-0.2) % PT (11.1-14.7) Seconds INR APTT (22.3-36.8) Seconds Sodium (137-145) mmol/L Potassium (3.4-5.0) mmol/L Chloride (98-107) mmol/L Carbon Dioxide (22-30) mmol/L Anion Gap (4-12) mmol/L BUN (7-17) mg/dL Creatinine (0.7-1.0) mg/dL Estim Creat Clear Calc ml/min Estimated GFR (59 - ) Glucose (65-110) mg/dL Calcium (8.4-10.2) mg/dL Total Bilirubin (0.2-1.3) mg/dL AST (14-36) U/L ALT (6-35) U/L Alkaline Phosphatase (38-126) U/L Total Protein (6.3-8.2) g/dL Albumin (3.5-5.1) g/dL Beta HCG, Quant mIU/ML Urine Color (Yellow) Urine Appearance (Clear) Urine pH (5.0-9.0) Ur Specific [place] (1.001-1.035) Urine Protein (Negative) mg/dL Urine Glucose (UA) (Negative) mg/dL Urine Ketones (Negative) mg/dL Ur Blood (Man) (Negative) Urine Nitrate (Negative) Urine Bilirubin (Negative) Urine Urobilinogen (<2.0) mg/dL Leukocyte Esterase Rfl (Negative) JACQUIE/UL Urine RBC (0-2) /hpf Urine WBC (0-3) /hpf Ur Squamous Epith Cells (Few) /hpf Urine Bacteria /hpf Urine Casts POC Urine HCG, Qual Positive (Negative) Blood Type Antibody Screen Screen Baby's Blood Type Baby's SAMY Doses of RhIg Required Imaging Data Radiologist's impression: ITS Impressions Obstetrics Ultrasound 12/11/24 20:49 IMPRESSION: No intrauterine . Poor vascularity is seen in the right ovary. Minimal fluid in the anterior cul-de-sac. ADDENDUM: 12/11/242120 Please note that in the body of the report states changes there is intrauterine which is not correct. No intrauterine seen. This was discussed with the treating physician in the ER. Critical Care Time Critical Care Time Critical Care Time: No Discharge Plan Discharge Clinical Impression: Threatened miscarriage Patient Disposition: Home Condition: Stable Instructions: Threatened Miscarriage (ED) Additional Instructions: Return to the ER if you experience fever, chest pain, shortness of breath, abdominal pain with nausea and vomiting, you are unable to keep down liquids or solids, worsening pelvic cramping/vaginal bleeding, or any other symptoms that are concerning to you Continue vitamin daily. Pelvic rest. Tylenol as needed for discomfort. Repeat your hormone as directed Follow up with your OB Patient Language: Honduran Prescriptions: No Action quetiapine 25 mg tablet methylprednisolone [Medrol (Uday)] 4 mg tablets,dose pack See Rx Instructions .ROUTE .COMPLEX Qty: 21 0RF Rx Instructions: orally per package directions ibuprofen 600 mg tablet 600 mg PO Q6H PRN (Reason: pain) 5 Days Qty: 20 0RF ibuprofen 800 mg tablet 800 mg PO TID PRN (Reason: pain) 7 Days Qty: 21 0RF acetaminophen 500 mg tablet 1,000 mg PO TID PRN (Reason: marcellus) 7 Days Qty: 42 0RF acyclovir 800 mg tablet 800 mg PO Q4H Qty: 35 0RF Rx Instructions: while awake; give 5 doses in 24 hours Follow-up/Referrals: Elton,Adilia Ramirez MD [Primary Care Provider] -
[2024-12-11 21:00] VITALS: BP 129/86; BP 131/78; PULSE 72; PULSE 74
[2024-12-11 21:01] VITALS: BP 126/95; PULSE 84
[2024-12-11] MEDS: SODIUM CHLORIDE 0.9% IV 1,000 ML 999 ML IV CONT (21:11)
[2024-12-11] MEDS: ACETAMINOPHEN 500 MG TABLET 1000 MG PO (21:11)
--- NOTE | 2024-12-11 21:23 | PC.NURSE ---
patient emptied bladder in ultrasound, was educated that a urine sample will be needed.
[2024-12-11 21:28] LABS: Basophils Percent Auto 0.3 % (0.2-1.2); Eosinophils Absolute Auto 0.1 K/mm3 (0-0.3); Eosinophils Percent Auto 0.6 % (0-4.4); Hemoglobin 12.7 g/dL (12.0-15.0); Immature Granulocyte Absolute 0.04 K/mm3 (0.00-0.031); Immature Granulocyte Percent A 0.4 % (0-0.5); Lymphocytes Absolute Auto 1.93 K/mm3 (0.9-3.2); Lymphocytes Percent Auto 19.2 % (18.3-44.2); Mean Corpuscular HGB Conc 31.8 g/dl (32-36); Mean Corpuscular Hemoglobin 27.6 pg (26-34); Mean Platelet Volume 10.8 fl (7.4-10.4); Monocytes Absolute Auto 0.7 K/mm3 (0.1-0.6); Monocytes Percent Auto 7.1 % (2.6-8.5); Neutrophils Absolute Auto 7.3 K/mm3 (1.3-6.7); Neutrophils Percent Auto 72.4 % (45.5-73.1); Platelet Count Result 239 k/mm3 (150-375); Red Cell Distribution Width 14.4 % (11.5-14.5); White Blood Count 10.1 K/mm3 (4.5-10.0)
[2024-12-11 21:37] LABS: Prothrombin Time 13.2 Seconds (11.1-14.7)
[2024-12-11 21:38] LABS: Alanine Aminotransferase 17 U/L (6-35); Albumin Level 4.3 g/dL (3.5-5.1); Alkaline Phosphatase 76 U/L (38-126); Anion Gap 7 mmol/L (4-12); Aspartate Amino Transferase 21 U/L (14-36); Bilirubin,Total 0.5 mg/dL (0.2-1.3); Blood Urea Nitrogen 12 mg/dL (7-17); Calcium 9.2 mg/dL (8.4-10.2); Carbon Dioxide 26 mmol/L (22-30); Chloride 103 mmol/L (98-107); Estimated CRCL calculation 91 ml/min; Estimated Glomerular Filt Rate > 60; Glucose 98 mg/dL (65-110); Partial Thromboplastin Time 25.5 Seconds (22.3-36.8); Potassium 4.1 mmol/L (3.4-5.0); Sodium 136 mmol/L (137-145)
[2024-12-11 21:55] LABS: Beta HCG Quantitative 430.82 mIU/ML
[2024-12-11 22:19] LABS: Add Urine Microscopic? YES; Appearance Urine Clear (Clear); Bacteria Urine None Seen /hpf; Bilirubin Urine Negative (Negative); Blood Urine 3+ (Negative); Color Urine Yellow (Yellow); Glucose Urine UA Negative (Negative); Ketones Urine Negative (Negative); Leukocyte Esterase Ur Negative LEU/UL (Negative); Nitrate Urine Negative (Negative); Non Pathogenic Casts 0-2; Protein Urine Negative (Negative); RBC Urine 21-50 /hpf (0-2); Specific Grav Ur 1.013 (1.001-1.035); Squamous Epithelial Cell Urine Few /hpf (Few); Urobilinogen Urine 0.2 mg/dL (<2.0); WBC Urine 0-5 /hpf (0-3)
[2024-12-11 22:22] LABS: BEDSIDEPREGUCG Positive (Negative)
[2024-12-11 22:42] VITALS: BP 164/80; PULSE 76; RESP 20; TEMP 36.5; O2SAT 99
== END 2024-12-11 23:25 | disposition home or self-care (01) ==
PROVIDERS: Emergency Provider Physician Assistant; PCP Internal Medicine Gastroenterology
DX: O20.0 Threatened abortion (principal); O99.281 Endocrine, nutritional and metabolic diseases complicating pregnancy, first trimester; E28.2 Polycystic ovarian syndrome; O99.511 Diseases of the respiratory system complicating pregnancy, first trimester; J45.909 Unspecified asthma, uncomplicated; O99.211 Obesity complicating pregnancy, first trimester; E66.01 Morbid (severe) obesity due to excess calories; O99.341 Other mental disorders complicating pregnancy, first trimester; F31.9 Bipolar disorder, unspecified; F41.9 Anxiety disorder, unspecified; Z86.16 Personal history of COVID-19; Z3A.01 Less than 8 weeks gestation of pregnancy; Z79.899 Other long term (current) drug therapy
CPT/HCPCS: 36415; 76801; 76817; 80053; 81001; 81025; 84702; 85025; 85461; 85610; 85730; 86850; 86900; 86901; 96360; 99284; A9270; J7030

== ENCOUNTER 2024-12-16 14:12 | Outpatient (RCR) | payer OTHER, SELFPAY ==
[2024-12-14 12:02] LABS: Beta HCG Quantitative 852.54 mIU/ML
--- OUTSIDE RECORDS SUMMARY | 2024-12-14 12:13 | XMS_ITS | Data Portability ---
Author Organization [place] [facility] [employer], Main Office Address [address] [place] [address] Care Team Providers Care Bricklayer Apprentice Name Role Phone TALAT BHAKTA Primary Care Provider [phone] TALAT BHAKTA Referring Provider Assessment Encounter Date [...] to a short version she got at [facility], as this was more comfortable for her. [...] joint line and over patellar tendon. Positive [facility]. Tenderness with palpitation over lateral ankle, [...] tenderness with palpation over the hamstrings. Positive [facility]. BMI 45.7. MRI was reviewed, demonstrating [...] n of therapy R knee 2023 024 [facility] [place], [address] [place] [address], [place], [address], 11:06:38 physical therapist referral - cont....pat ient will call to schedule [address] [facility] [place], [address] [place], [address], 14:54:07 physical therapist referral - Please contact pt to schedule for R knee post op meniscus repair (11/21/2023) . Thanks [address] [facility] [place], [address] [place], [address], 4 17:16:55 Procedures injection/a spiration joint/bursa (PROC) 2023 [email or web address] In-Office Order, Internal Use Only DO Not Attach Compendium DO Not Attach Compendium, Do Not Delete/merge, [id number] 12:28:56 Surgeries None recorded. Imaging MRI, knee, w/o contrast 2023 [facility] ([facility]), [address], [place], [address], 4 16:13:10 Medication Orders bupivacaine HCl 0.5 % (5 mg/mL) injection solution 2023 [id number], [address] , [place], [address], 4 11:06:38 Kenalog 10 mg/mL suspension for injection 2023 [id number], [address], [place], [address], 4 11:06:38 meloxicam 15 mg tablet [id number], [address] , [place], [address], 4 11:06:38 Mobic 15 mg tablet 2023 024 [id number], [address], [place], [address], 14:54:07 Patient TargetsNo targets recorded. Patient InstructionsNo [...] ast No observ ation record ed. [email or web address] [facility] [address] [place], [address], 07/20/2024 16:14:57 Result Notes None recorded. Problems Name Problem SNOMED Code Status Onset Date Resolution Date Notes Provider Name and Address Organization Details Recorded Time Sprain of right ankle 2411107698015 9105 Active 2020 Not Available [facility] 3 16:10:16 Pain of right ankle joint 5487713782714 9106 Active 2021 Not Available [facility] 3 16:10:16 Postoperat jeanne visit 642672253 Active 2020 Not Available [facility] 3 16:10:16 Ankle joint effusion 421253437 Active 2021 Not Available [facility] 3 16:10:16 Postoperat jeanne pain 976925214 Active 2020 Not Available [facility] 3 16:10:17 Right sided abdominal pain 362914071 Active Not Available [facility] 3 16:10:17 Stiffness of right ankle 3951552284053 04 Active 2021 Not Available [facility] 3 16:10:17 Adhesive capsulitis of shoulder 551772233 Active Not Available [facility] 3 16:10:17 Patellofem oral stress syndrome 679337610 Active 2021 Not Available [facility] 3 16:10:17 Foot pain 38153298 Active 2021 Not Available [facility] 3 16:10:17 Closed fracture of phalanx of foot 17733647 Active Not Available [facility] 3 16:10:17 Pain in limb 05946311 Active Not Available [facility] 3 16:10:17 Pain of right knee joint 9520411508463 00 Active 2022 ESTEFANI Reis, [place] [facility] 3 11:05:55 Effusion of joint of right knee 2766517092921 04 Active 2022 YASMINE Agrawal [address], [place], [address] , [facility] 3 12:27:57 Derangemen t of right knee 5491936940124 9109 Active 2022 YASMINE Agrawal [address], [address], [place], [address] , [facility] 3 15:04:19 Tear of medial meniscus of knee 054110166 Active 2023 Rao Jackson MD [address], [place], [address] , [facility] [employer] 4 00:14:46 Tear of medial meniscus of knee 506654651 Active 2023 Rao Jackson MD [address], [place], [address] , [facility] 4 17:35:35 Synovial plica syndrome of right knee 0853426301197 00 Active 2023 Rao Jackson MD [address], [place], [address] , [facility] [employer] [facility] 4 17:35:44 Problem Notes None recorded. Procedures Surgical History Date Name Laterality Status Provider Name and Address Organization Details Recorded Time 08/03/20 24 Ortho - Cortisone Injection completed Rao Jackson MD [address], [place], [address], [facility] [employer] [facility] 08/03/2024 12:54:35 11/21/19 24 Knee Surgery completed TEE Whatley [facility] [facility] 02/10/2024 16:00:11 Tonsillectomy completed Not Available [facility] 10/31/2022 16:10:02 Ankle Surgery completed Not Available [facility] 10/31/2022 16:10:02 Imaging Results Imaging Date Name Status LastModified by Organiz ation Details LastModified Time 04/06/2024 XR, knee, 4 or more view completed Information not available 04/06/2024 16:27:27 04/06/2024 XR, ankle, 3 or more view completed Information not available 04/06/2024 16:27:27 07/20/2024 MRI, knee, w/o contrast completed [address] [place], [address], 07/20/2024 16:14:57 Procedure Notes None recorded. Medical Equipment None Reported. Allergies Allergen ID Allergen Name Allergen Category Reaction Reaction Severity Criticality Documentation Date Start Date Code Code System Note Provider Name and Address Organization Details Recorded Time 50364 acetamino phen / hydrocodo ne medicatio n Not available Not available Not available 10/31/2022 44491 2 RxNorm Not Available [facility] 3 16:11:19 98097 Toradol medicatio n Not available Not available Not available 10/31/2022 60818 RxNorm Not Available [facility] 3 16:11:19 Medications Name Sig Start Date [...] 1 mL by injection route. 2023 active [facility]: 0003- 0494- 20 Not Available Not Available [...] Available Not Available Not Available Gregorio Higgins [facility] spacer DIRECTED 06/26 completed Not Available Not [...] Updated DateTime 01/08/2024 157.48 cm 44.8 kg/m2 963211.13 g Ingrid Hdez, ATC L [place] [facility] [employer] [facility] 01/08/2024 14:19:16 Date Recorded Body height Body mass index (BMI) Body weight Provider Name and Address Organization Details Last Updated DateTime 03/04/2024 157.48 cm 45.7 kg/m2 880811.09 g Diann Maik [facility] [employer] [facility] 03/04/2024 14:47:34 Date Recorded Body height Body mass index (BMI) Body weight Pain severity - 0-10 verbal numeric rating [Score] - Reported Provider Name and Address Organization Details Last Updated DateTime 04/07/2024 157.48 cm 45.7 kg/m2 232016.09 g Alta Candace Arroyo [facility] [employer] [facility] 04/07/2024 09:13:57 Date Recorded Body height Body mass index (BMI) Body weight Pain severity - 0-10 verbal numeric rating [Score] - Reported Provider Name and Address Organization Details Last Updated DateTime 07/01/2024 157.48 cm 45.7 kg/m2 358492.09 g 6 [facility] [employer] [facility] 07/01/2024 14:13:14 Date Recorded Body height Body mass index (BMI) Body weight Pain severity - 0-10 verbal numeric rating [Score] - Reported Provider Name and Address Organization Details Last Updated DateTime 08/03/2024 157.48 cm 45.7 kg/m2 583831.09 g 6 [facility] [employer] 08/03/2024 12:09:12 Social History Question Answer Notes LastModified by Organizat ion Details LastModified Time Tobacco Smoking Status Never Smoker Not Available [facility] 10/31/2022 16:10:01 What Is Your Level Of Alcohol Consumption? None [id number] Information not available 10/31/2022 If You Are , What Was Your Level Of Alcohol Consumption Prior To ? Occasional [email or web address] Information not available 08/03/2024 What Was The Date Of Your Most Recent Tobacco Screening? 08/03/2024 [email or web address] Information not available 08/03/2024 Have You Recently Traveled Abroad? No [id number] Information not available 10/31/2022 Sex: Unknown Functional Status None recorded. Mental Status None recorded. Family History Relationship Description Onset Age of this Age Resolved Age Notes LastModified by Organization Details LastModified Time Father No current problems or disability [email or web address] Not available 10/2023 11:56:41 Mother No current problems or disability [email or web address] Not available 10/2023 11:56:41 Mother Family history of malignant neoplasm [email or web address] Not available 08/03 11:56:41 Mother Complication of anesthesia [email or web address] Not available 10/2023 11:56:41 Mother Hypertensive disorder [id number] Not available 10/31/2022 16:10:02 Medical History Condition Response ALLERGIES/HAYFEVER Y LUNG DISEASE/DISORDER N INSOMNIA N RADIATION / CHEMOTHERAPY N COPD N HIGH CHOLESTEROL / HYPERLIPIDEMIA N RHEUMATOID ARTHRITIS N EDEMA N CAROTID BLOCKAGE N DEPRESSION (INCLUDING POST ) Y BOWEL PROBLEMS N BACK / NECK PROBLEMS Y HAVE YOU BEEN HOSPITALIZED OR SEEN IN [facility] ER IN THE PAST YEAR ? [...] ALZHEIMER'S DISEASE N PAIN N HERPES N HEADACHES/MIGRAINES N SEIZURES/EPILEPSY N CHF N VASCULAR DISEASE N Blood Disorder N DIZZINESS Y HEART DISEASE/HEART PROBLEMS N NEUROPATHY N AIDS/HIV N KIDNEY DISEASE N LIVER DISEASE N MENTAL DISORDER/ILLNESS N HYPERTENSION N CARDIAC ARRHYTHMIA N CANCER: [...] SNOMED-CT Code Diagnosis ICD10 Code Diagnosis Note [id number] [facility] [address] [place] [address] 02/22/2021 00:00:00 02/23/2021 08:42:44 [id number] [facility] [address] [place] [address] 03/27/2021 00:00:00 03/28/2021 12:15:00 [id number] [facility] [address] [place] [address] 04/24/2021 00:00:00 04/25/2021 06:42:32 [id number] [facility] [address] [place] [address] 05/22/2021 00:00:00 05/23/2021 11:46:04 [id number] [facility] [address] [place] [address] 06/29/2021 00:00:00 06/30/2021 10:23:36 [id number] [facility] [address] [place] [address] 07/06/2021 00:00:00 07/09/2021 21:14:39 [id number] [facility] [address] [place] [address] 07/20/2021 00:00:00 07/22/2021 14:21:20 [id number] [facility] [address] [place] [address] 08/10/2021 00:00:00 08/15/2021 11:29:23 [id number] [facility] [address] [place] [address] 09/14/2021 00:00:00 09/15/2021 09:29:57 [id number] [facility] [address] [place] [address] 11/02/2021 00:00:00 11/06/2021 10:16:59 [id number] [facility] [address] [place] [address] 02/12/2022 00:00:00 02/13/2022 09:10:47 [id number] [facility] [address] [place] [address] 03/26/2022 00:00:00 03/27/2022 11:26:34 [id number] [facility] [address] [place] [address] 05/28/2022 00:00:00 05/30/2022 18:03:17 [id number] [facility] [address] [place] [address] 06/26/2022 00:00:00 06/26/2022 16:20:[id number] [address] 01/25/2021 00:00:00 01/25/2021 16:46:[id number] [address] 02/23/2021 00:00:00 02/25/2021 21:20:[id number] [address] 03/23/2021 00:00:00 03/23/2021 15:29:17 [id number] YASMINE Agrawal [facility] [address] [place] [address] 08/02/2023 11:01:53 08/02/2023 12:11:56 Pain of right knee joint 4620765382 09191 M25.561 Effusion o f joint of right knee 1952453175 06952 M25.877 [id number] YASMINE Agrawal [facility] [address] [place] [address] 08/08/2023 14:25:34 08/08/2023 14:59:09 Effusion of joint of right knee 0144362931 60865 M25.461 Pain of ri ght knee joint 1218618544 87465 M25.561 Derangemen t of right knee 7067483571 5202181 M23.91 [id number] Rao Jackson MD [facility] [address] [place] [address] 09/11/2023 14:05:37 09/11/2023 14:23:25 Pain of right knee joint 1533178013 17033 M25.561 Tear of me dial meniscus of knee 297927588 S83.241A [id number] Rao Jackson MD [facility] [address] [place] [address] 10/16/2023 14:48:35 10/16/2023 15:44:46 Pain of right knee joint 3562948476 36443 M25.561 Tear of me dial meniscus of knee 563680904 S83.241A Synovial p lica syndrome of right knee 6785068937 79466 M67.51 [id number] Lesia Randolph NP [facility] [address] [place] [address] 12/04/2023 14:11:50 12/04/2023 14:46:45 Pain of right knee joint 7263327173 79397 M25.561 Tear of me dial meniscus of knee 658459621 S83.241A [id number] Rao Jackson MD [facility] [place] [address] [place] [address] 12/18/2023 13:59:59 12/18/2023 14:59:22 Pain of right knee joint 1275116085 19466 M25.561 Tear of me dial meniscus of knee 870588257 S83.241A [id number] Lesia Randolph NP [facility] [address] [place] [address] 01/08/2024 14:09:56 01/08/2024 14:56:33 Pain of right knee joint 3694389171 72953 M25.561 Tear of me dial meniscus of knee 109748642 S83.241A [id number] Rao Jackson MD [facility] [place] [address] [place] [address] 03/04/2024 14:44:54 03/04/2024 15:27:49 Pain of right knee joint 7755982179 12127 M25.561 Tear of me dial meniscus of knee 713852984 S83.241D [id number] Lesia Randolph NP [facility] [address] [place] [address] 04/07/2024 09:10:23 04/07/2024 10:17:09 Pain of right knee joint 7386933508 80727 M25.915 [id number] Rao Jackson MD [facility] [address] [place] [place] [address] 07/01/2024 14:10:44 07/01/2024 14:50:42 Derangement of right knee 0366285294 7190231 M23.91 Pain of ri ght ankle joint 4882306806 2729856 M25.571 Postoperative visit 1836 66761 Z09 [id number] Rao Jackson MD [facility] [place] [address] [place] [address] 08/03/2024 11:55:37 08/03/2024 12:35:35 Tear of medial meniscus of knee 345728824 S83.241D Pain of ri ght knee joint 4270059915 16595 M25.561 Health Concerns Section Related Observation LastModified by Organization Detai ls LastModified Time None Recorded Concern Status LastModified by Organization Details LastModified Time None Recorded Advance Directives Directive None Recorded Payers Encounter Date Sequence Insurance Name Policy Number Policy Mahmood Covered Member ID Mahmood Member ID Guarantor Name 01/08/2024 1 [facility] (MEDICAID HMO) [id number] Holly N [place] [id number] [place] N [place] 03/04/2024 1 [facility] (MEDICAID HMO) [id number] [place] N [place] [id number] [place] N [place] 04/07/2024 1 [facility] (MEDICAID HMO) [id number] 0003 [place] N [place] [id number] Holly N [place] 07/01/2024 1 [facility] (MEDICAID HMO) [id number] 0003 Holyl Raphael [place] [id number] Holly N [place] 08/03/2024 1 [facility] (MEDICAID HMO) [id number] 0003 [place] N [place] [id number] Holly Raphael [place] OBGyn Episode No OBEpisode recorded.
--- OUTSIDE RECORDS SUMMARY | 2024-12-14 12:13 | XMS_ITS | Clinical Summary ---
Author Organization [facility] Address [address] [place] [address] Care Team Providers Care Laboratory Inspector Name Role Phone Adilia Conde MD Primary Care Provider + [phone] Source Comments [facility],non-owned Affiliates and Associated Physician Practices is amultiple site organization consisting of ambulatory clinics and hospital sitesin [place], [place], [place] and [place]. This disclosure is being madepursuant to the Care Everywhere program and may not contain all information available regarding this patient. Last updated 18.[facility] Allergies Active Allergy Reactions Criticality Noted Date Comments Ketorolac Palpitations 10/06/2020 I had a panic attack after I took it Hydrocodone-Acetaminophen 01/21/2015 Medications * This document contains information received from the source organization and may not represent a complete record from that organization. * Be aware that medications may not be up to date on this document. Alwaysverify current medications with the patient. hydrOXYzine hcl (ATARAX) 25 MG tablet Take 1 (one) tablet by mouth Active aluminum-magnes ium-simethicone (MAALOX;MYLANTA ) 200-200-20 MG/5ML suspension Take 15 mL by mouth every 6 hours as needed for Heartburn or Nausea/Vomitin g 120 mL 04/07/202 1 Active famotidine (PEPCID) 20 MG tablet Take 1 (one) tablet by mouth once daily 30 tablet Active QUEtiapine (SEROquel) 25 MG tabletIndicatio ns:Bipolar Mood Disorder Take 1 (one) tablet by mouth at bedtime Reasons: Manic-Depressi on Active Social History Tobacco Use Types Packs/Day [...] Date Recorded PHQ2 TOTAL SCORE 2 12/01/2022 Comments No Sex and Gender Information Value Date Recorded Sex Assigned at Female 03/26/2023 12:54 PM CDT Legal Sex Female 1:24 PM CDT Gender Identity Female 03/26/2023 12:54 [...] 3:20 AM CDT Height 157.5 cm (5' 2) 04/18/2023 3:20 AM CDT Body Mass Index 44.81 04/18/2023 3:20 AM CDT Plan of Treatment Health Maintenance Due Date Last Done Comments HIV SCREENING 2002 HEPATITIS C SCREENING 08/01/2005 DTAP/TDAP/TD VACCINES (1 - Tdap) 2006 HEPATITIS B VACCINE (1 of 3 - 19+ 3-dose series) 2006 PAP SMEAR 07/05/2020 07/05/2017 COVID-19 VACCINE (1 - 2023-2 5 season) 2024 DEPRESSION SCREENING 09/02/2024 12/01/2022 [...] to complete this topic Insurance [facility] * Guarantor: HOLLY MARTÍNEZ Account Type Relation to Patient Date of Phone Billing Address Personal/Family 1985 [id number] [facility] Care Teams Laboratory Inspector Relationship Specialty Start Date End Date Adilia Conde MD [address] [place] [address] PCP - General 05/17/20
[2024-12-16 15:02] LABS: Beta HCG Quantitative 1115.40 mIU/ML
== END 2025-03-14 23:59 | disposition home or self-care (01) ==
LOC: ANHLAB 14:12
PROVIDERS: PCP Internal Medicine Gastroenterology; Visit Provider Obstetrics & Gynecology Gynecology
DX: O26.851 Spotting complicating pregnancy, first trimester (principal)
CPT/HCPCS: 36415; 84702

== ENCOUNTER 2024-12-23 08:52 | Outpatient (CLI) | payer OTHER, SELFPAY ==
--- NOTE | ~2024-12-23 | US_ITS ---
Pelvic ultrasound. Clinical History: First trimester , history of spontaneous Technique: Realtime transabdominal and transvaginal scanning of the pelvis was performed. Color flow Doppler and Doppler spectral analysis were performed. Findings: The uterus is anteverted. The endometrial stripe has a thickness of 4 mm. No intrauterine gestational sac is identified. Probable 8 mm fibroid present in the anterior uterine wall. The right ovary measures 3.6 x 3.6 x 1.7 cm. No significant right ovarian or adnexal mass is seen. The left ovary measures 2.2 x 2.2 x 2.9 cm. No significant left ovarian or adnexal mass is seen. There is trace free fluid in the cul de sac. Impression: Positive test without intrauterine gestation. Differential diagnosis includes early normal , spontaneous , or nonvisualized ectopic . Reviewed, dictated and finalized at [facility]. Impression: Positive test without intrauterine gestation. Differential diagnosis includes early normal , spontaneous , or nonvisualized ectopic .
--- OUTSIDE RECORDS SUMMARY | 2024-12-23 09:29 | XMS_ITS | Clinical Summary ---
Author Organization [facility] Address [address] [facility] [address] [place] [address] Care Team Providers Care Back Shoe Operator Name Role Phone Adilia Conde MD Primary Care Provider + [phone] Source Comments [facility],non-owned Affiliates and Associated Physician Practices is amultiple site organization consisting of ambulatory clinics and hospital sitesin [place], [place], [place] and [place]. This disclosure is being madepursuant to the Care Everywhere program and may not contain all information available regarding this patient. Last updated 18.[facility] Allergies Active Allergy Reactions Criticality Noted Date [...] patient's age to complete this topic Insurance [facility] * Guarantor: HOLLY MARTÍNEZ Account Type Relation to Patient Date of Phone Billing Address Personal/Family [id number] [facility] Care Teams Back Shoe Operator Relationship Specialty Start Date End Date Adilia Conde MD [address] [place] [address] PCP - General 05/17/20
--- OUTSIDE RECORDS SUMMARY | 2024-12-23 09:29 | XMS_ITS | Clinical Summary ---
Author Organization [facility] Address [facility] [place] [address] Care Team Providers Care Information Systems Auditor Name Role Phone Adilia Conde MD Primary Care Provider Allergies Active Allergy Reactions Criticality Noted Date Comments Tramadol Palpitations Low 05/13/2024 Hydrocodone-Acetaminophen Nausea & Vomiting Low 07/2024 Medications hydrOXYzine (ATARAX) 25 mg tablet Take 1 tablet (25 mg total) by mouth nightly Active QUEtiapine (SEROquel) 25 mg tablet Take 1 tablet (25 mg total) by mouth nightly Active ergocalciferol (VITAMIN D) 50,000 unit capsule Take 1 capsule (50,000 Units total) by mouth once a week Active PNV with [id number] 27 mg iron- 1 mg tablet 1 tablet Active acetaminophen (TYLENOL) 500 mg tablet Take 1 tablet (500 mg total) by mouth every 6 (six) hours as needed for pain 60 tablet 5 Active ibuprofen (ADVIL,MOTRIN) 600 mg tablet Take 1 tablet (600 mg total) by mouth every 6 (six) hours as needed for pain 30 tablet 5 Active dicyclomine (BENTYL) 20 mg tabletIndicatio ns:Abdominal Pain with Cramps Take 1 tablet (20 mg total) by mouth every 6 (six) hours as needed (Abdominal cramps) 20 tablet 1 12/18/19 25 Discontinu ed(Stop Taking at Discharge) ondansetron (ZOFRAN) 4 mg tablet Take 1 tablet (4 mg total) by mouth every 6 (six) hours as needed for nausea 20 tablet 1 12/18/19 25 Discontinu ed(Stop Taking at Discharge) acetaminophen (TYLENOL) 500 mg tablet Take 1 tablet (500 mg total) by mouth every 6 (six) hours as needed for pain 60 tablet 5 12/21/19 25 Discontinu ed(Reorder ) ibuprofen (ADVIL,MOTRIN) 600 mg tablet Take 1 tablet (600 mg total) by mouth every 6 (six) hours as needed for pain 30 tablet 5 12/21/19 25 Discontinu ed(Reorder ) Active Problems Problem Noted Date Diagnosed Date , location unknown 12/18/2024 Overview (12/18/2024): Telephone Number Ivett Moranmabecky Trevizo [phone] (home) Home Yes Self Yes [] PUL Card Given Working Diagnosis: PUL Date presented: 12/18/24 A/P: Holly Simeon is a 39 y.o. female Non- with PUL. Presented w/spotting, cramping. Positive UPT 12/07. Early IUP vs EPL vs ectopic. 12/17 12/17: quant 1,197. No evidence ectopic. 12/18: called spoke with pt who agreed confirmed she is coming into [facility] tomorrow for 48h repeat quant. [ ] return 12/20 for repeat quant Ultrasound: no evidence ectopic or iup. No GS, adnexa WNL Rh Status: AB Positive [] Rhogam Given Beta Trend: Lab Results Component Value Date HCG 1,197.0 (H) 12/17/2024 HCG <5.0 05/13/2024 PLAN Next beta due: 12/20 Contraception: needs addressed Does the patient have insurance? If not, make clinic appointment for [place] medicaid specialist OR refer to [place] medicaid office. [] Signed out with attending and mendoza to remove from beta book. Attending Name: Comments Yes Encounters Date Type Department Care Team Description 12/20/2024 Orders Only [facility] [address] [place] [address] Health 3rd Floor [address] [place] [address] Freda Adame MD 12/19/2024 7:21 PM CDT - 12/20/2024 12:32 AM CDT Hospital Encounter [address] [id number] Calderon Watts MD , location unknown (Primary Dx) Discharge Disposition: Discharge to home or self care 12/18/[address] [phone] Casey Ferrer MD 12/17/2024 4:45 PM CDT - 12/17/2024 11:53 PM CDT Hospital Encounter [address] [address] Makayla Godinez MD Terry, Hunter L., MD Discharge Disposition: Discharge to home or self care from Last 3 Months Surgical History Surgery Date Site/Laterality Comments TONSILLECTOMY 09/02/2000 - 09/01/2001 Bilateral KNEE SURGERY 09/02/2023 - 09/01/2024 Right ANKLE SURGERY 09/02/2022 - 09/01/2023 Right Medical History Medical History Date Comments Depression Bipolar 1 disorder (HCC) might b e type 2 Personality disorder (HCC) PTSD (post-traumatic stress disorder) PCOS (polycystic ovarian syndrome) 2004 Social History Tobacco Use Types Packs/Day Years [...] making you feel afraid or unsafe? Denies 12/19/2024 Comments Yes Sex and Gender Information Value Date Recorded Sex Assigned at Not on file Legal Sex Female 7:51 PM [employer] Gender Identity Not on file Sexual Orientation Bisexual 12/17/2024 7: 25 PM CDT Obstetrics History Para Term AB IAB SAB Ectopic Multiple Livin g Live Births 5 1 1 3 2 1 1 1 Date Outcome GA Total Labor Labor/2nd/3rd Weight Sex Type Anes PTL Ameena A1 A5 Name Clin 2005 Vag-Spo nt Living 2014 SAB 2017 Ectopic 2022 SAB Biochem ical Current Summary Episode Dates Number of Fetuses Estimated Date of Delivery 12/17/2024 - Present (12/23/2024) Unknown Vitals Pregravid Weight Height TWG (As of 12/23/2024) Pregrav id BMI 157.5 cm (5' 2 ) Date GA Fund Present FHR Mvmt BP Weight Edema Alb Glu Ket Dil/ Eff/Sta 12/17/2024 Inpatient data n ot displayed here. See encounter summary. 12/19/2024 Inpatient data n ot displayed here. See encounter summary. Notes Progress Notes - Hospital En counter - 12/20/2024 - [place]: 12/20/2024 - Halina Royal RN Pt arrived to [facility] for lab draw and light bleeding HCG levels trending down On Admission pt having productive coughing w/ expiratory wheezing in upper right lung MD assessment per Daren PGY3 Pt resp panel positive for parainfluenza Pt received treatment via resp. Pt received 1g tylenol and 200 mg robitussin RX sent to pharmacy Discharged in stable condition with no further questions at this time 12/20/2024 - Dara Dhillon MD Brief R2 Update Notified by RN that pt feeling better after DuoNeb. Desires Tylenol & robitussin prior to dc but feels comfortable with discharge. Order placed. Last Filed Vital Signs Vital Sign Reading Time Taken Comments Blood Pressure 136/97 12/19/2024 7:32 PM CDT Pulse 85 12/19/2024 7:32 PM CDT Temperature 36.7 C (98 F) 12/19/2024 8:50 PM CDT Respiratory Rate 16 12/19/2024 8:50 PM CDT Oxygen Saturation 93% 12/19/2024 10: 33 PM CDT Inhaled Oxygen Concentration - - Weight 121.5 kg (267 lb 12.8 oz) 12/17/2024 5:10 PM CDT Height 157.5 cm (5' 2 ) 12/19/2024 7:32 PM CDT Body Mass Index 48.98 12/17/2024 5:10 PM CDT Plan of Treatment Upcoming Encounters Date Type Department Care Team (Late st Contact Info) Description 08/28/2025 Hospital Encounter [facility] [address] [place] [address] Calderon Watts MD [address] [address] Health Maintenance Due Date Last Done Comments Cervical Cancer Screening 1987 Depression Screening 1987 Hepatitis C Screening 1987 Varicella Vaccines (1 of 2 - 13+ 2-dose series) 2000 Regular Well Visit/Exam 18-64 2005 DTaP/Tdap/Td Vaccine (7 - Td or Tdap) 01/12/2025 01/12/2015, 04/09/2002, 06/09/1992, Additional history exists Influenza Vaccine (Season Ended) 2025 05/20/2017 Hepatitis B Screening Completed 12/09/1998 , 07/18/1998, 12/13/1997 HPV Vaccines Aged Out No longer eligi ble based on patient's age to complete this topic Pneumococcal vaccine <65 Aged Out No longer eligible based on patient's age to complete this topic Procedures Procedure Name Priority Date/Time Associated Diagnosis Comments RESPIRATORY PATHOGEN PANEL Routine 12/19/2024 8:30 PM CDT HCG, BLOOD, QUANTITATIVE STAT 12/19/2024 7:37 PM CDT B CHECK SAMPLE STAT 12/17/2024 7:41 PM CDT EGFR STAT 12/17/2024 7:13 PM CDT DIFFERENTIAL AUTO STAT 12/17/2024 7:1 3 PM CDT HCG, BLOOD, QUANTITATIVE STAT 12/17/2024 7:13 PM CDT COMPREHENSIVE METABOLIC PANEL STAT 12/17/2024 7:13 PM CDT CBC WITH AUTO DIFFERENTIAL STAT 12/17/2024 7:13 PM CDT TYPE AND SCREEN Timed 12/17/2024 7:13 PM CDT POCT URINALYSIS (CLINITEK) Routine 12/17/2024 5:19 PM CDT from Last 3 Months Results * (ABNORMAL) Respiratory pathogen panel Nasopharyngeal (12/19/2024 8:30 PM CDT) Pathologist [facility] Influenza A RNA Not Detected Not Detected Influenza B RNA Not Detected Not Detected [facility] RSV RNA Not Detected Not Detected [facility] COVID-19 RNA Not Detected Not Detected [facility] Coronavirus 229E RNA Not Detected Not Detected [facility] Coronavirus HKU1 RNA Not Detected Not Detected [facility] Coronavirus NL63 RNA Not Detected Not Detected [facility] Coronavirus OC43 RNA Not Detected Not Detected [facility] Adenovirus DNA Not Detected Not Detected [facility] Metapneumovirus RNA Not Detected Not Detected [facility] Rhinovirus/Enterov irus RNA Not Detected Not Detected [facility] Parainfluenza 1 RNA Not Detected Not Detected [facility] Parainfluenza 2 RNA Not Detected Not Detected [facility] Parainfluenza 3 RNA Detected(A) Not Detected [facility] Parainfluenza 4 RNA Not Detected Not Detected [facility] B. pertussis DNA Not Detected Not Detected [facility] B. parapertussis DNA Not Detected Not Detected [facility] C. pneumoniae DNA Not Detected Not Detected [facility] M. pneumoniae DNA Not Detected Not Detected [facility] Nasopharyngeal 12/19/2024 8: 30 PM CDT 12/19/2024 9:27 PM CDT Narrative [facility] - 12/19/2024 10:45 PM CDT Is the Patient experiencing symptoms consistent with COVID?->Yes Surveillance testing for transplant patient?->No Interpretive Data The [employer] FilmArray Respiratory Panel (RP2.1) assay is a multiplexed real-time PCR based nucleic acid test capable of simultaneous qualitative detection and identification of multiple respiratory viral and bacterial nucleic acids, including SARS Coronavirus 2 (the causative agent of COVID-19). The following bacteria, viruses and virus subtypes can be identified using the FilmArray RP2.1 assay: Bordetella pertussis, Bordetella parapertussis, Chlamydia pneumoniae, Mycoplasma pneumoniae, Adenovirus, SARS Coronavirus 2, seasonal coronaviruses (Coronavirus HKU1, Coronavirus NL63, Coronavirus 229E, and Coronavirus OC43), Influenza A, Influenza A subtype H1, Influenza A subtype H3, Influenza A subtype 2009 H1, Influenza B, Metapneumovirus, Parainfluenza 1, Parainfluenza 2, Parainfluenza 3, Parainfluenza 4, RSV, Rhinovirus/Enterovirus. Due to the genetic similarity between human Rhinovirus and Enterovirus, the FilmArray RP2.1 assay cannot reliably differentiate them. Coronavirus OC43 may cross-react with some isolates of Coronavirus HKU1. A dual positive result may be due to cross-reactivity or may indicate a co- infection. The detection and identification of specific viral and bacterial nucleic acids from individuals exhibiting signs and symptoms of a respiratory infection aids in the diagnosis of respiratory infection if used in conjunction with other clinical and epidemiological information. The results of this test should not be used as the sole basis for diagnosis, treatment, or other management decisions. Negative results in the setting of a respiratory illness may be due to infection with pathogens that are not detected by this test. Positive results do not rule out infection/co-infection with other organisms. The agent(s) detected by the FilmArray RP2.1 may not be the definite cause of disease. Additional testing (lab, imaging, etc.) may be necessary when evaluating a patient with possible respiratory tract infection. The FilmArray RP2.1 assay has FDA clearance for testing of NUTRITION COUNSELOR swabs. The performance of additional specimen types has been assessed by the performing laboratory. The performance characteristics of this assay have been determined by [facility] Molecular Infectious Disease [facility]. Current interpretive data was last revised on 22. Calderon Watts MD LAB MICROBIOLOGY - GENERA L ORDERABLES Final Result [facility] [place] [address] * (ABNORMAL) hCG, blood, quantitative (12/19/2024 7:37 PM CDT) Pathologist [facility] hCG, quant 649.0(H) 0.0 - 5.0 IUnits/L Comment: Interpretive Data Male: < 5 IU/L Non- premenopausal Female: <5 IU/L The [employer] hCG Beta Quant assay procedure was used. Results from different manufacturers or methods may not be comparable. Serial testing should be performed using the same method. Interpretive Data was last revised on 2023 Blood 12/19/2024 7:37 PM CDT 12/19/2024 7:49 PM CDT Rosa Pineda NP LAB BLOOD ORDERABLES Elba l Result Performing Organization Address [facility] Co de Phone Number [facility] Department [place] [address] * Check Sample (12/17/2024 7:41 PM CDT) [facility] ABO Rh AB Positive [facility] OTHER 12/17/2024 7:41 PM CDT 12/17/2024 7:53 PM CDT Makayla Godinez MD LAB BLOOD ORDERABLES Fin al Result Performing Organization Address [facility] Co de Phone Number [facility] Department [place] [address] [facility] * eGFR (12/17/2024 7:13 PM CDT) [facility] eGFR 74 >=60 mL/min/1. 73 m2 Comment: Interpretive Data Reference Interval Normal >/= 90 mL/min/1.73m2 Mildly decreased* 60 - 89 mL/min/1.73m2 Mildly to moderately decreased 45 - 59 mL/min/1.73m2 Moderately to severely decreased 30 - 44 mL/min/1.73m2 Severely decreased 15 - 29 mL/min/1.73m2 Kidney Failure < 15 mL/min/1.73m2 *Relative to young adult level Estimated glomerular filtration rate is determined by the 2020 CKD-EPI equation recommended by the National Kidney Foundation (A Unifying Approach to GFR Estimation: Recommendations of the NKF-ASK Task Force on Reassessing the Inclusion of Race in Diagnosing Kidney Disease, JASN 2020). The CKD-EPI equation should not be used for patients with unstable renal function and has not been validated in children and those over 70. Current interpretive data was last reviewed 2021. Blood 12/17/2024 7:13 PM CDT 12/17/2024 8:53 PM CDT us Anna Gordon NUTRITION COUNSELOR LAB BLOOD ORD ERABLES Final Result [facility] Department [place] [address] * (ABNORMAL) Differential, auto (12/17/2024 7:13 PM CDT) Pathologist [facility] Neutrophil abs 4.15 1.50 - 6.50 K/cumm Imm gran abs 0.03 0.00 - 0.10 K/cumm [facility] Lymphocyte abs 1.21 0.80 - 3.30 K/cumm [facility] Monocyte abs 1.04(H) 0.20 - 0.80 K/cumm [facility] Eosinophil abs 0.13 0.00 - 0.50 K/cumm [facility] Basophil abs 0.03 0.00 - 0.10 K/cumm [facility] Neutrophil pct 62.8 % [facility] Comment: Interpretive Data Percent cell count reference ranges are not reported, since discordance with absolute values may lead to misinterpretation of CBC data. Current Interpretive Data was last revised on 2017. Imm gran pct 0.5 % [facility] Comment: Interpretive Data Percent cell count reference ranges are not reported, since discordance with absolute values may lead to misinterpretation of CBC data. Current Interpretive Data was last revised on 2017. Lymphocyte pct 18.4 % [facility] Comment: Interpretive Data Percent cell count reference ranges are not reported, since discordance with absolute values may lead to misinterpretation of CBC data. Current Interpretive Data was last revised on 2017. Monocyte pct 15.8 % [facility] Comment: Interpretive Data Percent cell count reference ranges are not reported, since discordance with absolute values may lead to misinterpretation of CBC data. Current Interpretive Data was last revised on 2017. Eosinophil pct 2.0 % [facility] Comment: Interpretive Data Percent cell count reference ranges are not reported, since discordance with absolute values may lead to misinterpretation of CBC data. Current Interpretive Data was last revised on 2017. Basophil pct 0.5 % [facility] Comment: Interpretive Data Percent cell count reference ranges are not reported, since discordance with absolute values may lead to misinterpretation of CBC data. Current Interpretive Data was last revised on 2017. Blood 12/17/2024 7:13 PM CDT 12/17/2024 7:24 PM CDT us Anna Gordon NUTRITION COUNSELOR LAB BLOOD ORD ERABLES Final Result [facility] Department [place] [address] * CBC with auto differential (12/17/2024 7:13 PM CDT) WBC 6.59 3.80 - 9.90 K/cumm Hgb 12.4 11.9 - 15.5 g/dL [facility] Hct 38.1 35.6 - 45.5 % [facility] Plt 224 150 - 400 K/cumm [facility] MPV 10.2 9.1 - 12.3 fL [facility] RBC 4.50 3.90 - 5.20 M/cumm [facility] MCV 84.7 81.3 - 96.4 fL [facility] MCH 27.6 27.1 - 33.3 pg [facility] MCHC 32.5 32.3 - 35.7 g/dL [facility] RDW CV 14.3 11.1 - 14.9 % [facility] RDW SD 43.9 35.7 - 48.1 fL [facility] NRBC abs 0.00 0.00 - 0.01 K/cumm [facility] Blood 12/17/2024 7:13 PM CDT 12/17/2024 7:24 PM CDT [facility] LAB BLOOD ORD ERABLES Final Result Performing Organization Address City/[facility]/ZIP Co de Phone Number [facility] [place] [address] * Type and screen (12/17/2024 7:13 PM CDT) ABO Rh AB Positive Cesar, indirect Negative [facility] Blood 12/17/2024 7:13 PM CDT 12/17/2024 7:27 PM CDT Narrative [facility] - 12/17/2024 8:30 PM CDT Has the patient had Daratumumab or Isatuximab in the past 6 months?->Unknown [facility] LAB BLOOD BAN K TEST ORDERABLES Final Result Performing Organization Address [facility] Co de Phone Number [facility] Department [place] [place] [address] * (ABNORMAL) hCG, blood, quantitative (12/17/2024 7:13 PM CDT) hCG, quant 1,197.0(H ) 0.0 - 5.0 IUnits/L Comment: Interpretive Data Male: < 5 IU/L Non- premenopausal Female: <5 IU/L The [employer] hCG Beta Quant assay procedure was used. Results from different manufacturers or methods may not be comparable. Serial testing should be performed using the same method. Interpretive Data was last revised on 2023 Blood 12/17/2024 7:13 PM CDT 12/17/2024 8:53 PM CDT Anna Gordon NUTRITION COUNSELOR LAB BLOOD ORD ERABLES Final Result [facility] Department [place] [address] * Comprehensive metabolic panel (12/17/2024 7:13 PM CDT) Sodium 141 135 - 145 mmol/L Potassium, pl 4.0 3.3 - 4.9 mmol/L [facility] Chloride 104 97 - 110 mmol/L [facility] CO2 27 22 - 32 mmol/L [facility] Anion gap 10 2 - 15 mmol/L [facility] BUN 11 6 - 25 mg/dL [facility] Creatinine 1.00 0.60 - 1.10 mg/dL [facility] Glucose 91 70 - 199 mg/dL [facility] Comment: Interpretive Data Fasting glucose >/= 126 mg/dl is diagnostic for diabetes. Fasting is defined as no caloric intake for at least 8 hours. Fasting glucose between 100 mg/dl to 125 mg/dl is diagnostic of prediabetes. In a patient with classic symptoms of hyperglycemia or hyperglycemic crisis, a random glucose >/= 200 mg/dl is diagnostic for diabetes. In the absence of unequivocal hyperglycemia, results should be confirmed by repeat testing. The classification and Diagnosis of Diabetes Diabetes Care 2021; 46: S19-S40. Current interpretive data was last revised 2022. Calcium 9.5 8.5 - 10.3 mg/dL [facility] Bilirubin, total 0.2 0.1 - 1.2 mg/dL [facility] Protein, pl 7.6 6.5 - 8.5 g/dL [facility] Albumin 3.9 3.5 - 5.0 g/dL [facility] Alk phos 75 40 - 130 Units/L [facility] ALT 17 7 - 45 Units/L [facility] AST 26 10 - 45 Units/L [facility] Blood 12/17/2024 7:13 PM CDT 12/17/2024 8:53 PM CDT us Anna Gordon NP LAB BLOOD ORD ERABLES Final Result [facility] Department [place] [address] * (ABNORMAL) POCT urinalysis (Clinitek) (12/17/2024 5:19 PM CDT) Color, ur, POC Yellow Yellow Clarity, UA, POC Clear Clear [facility] Glucose, ur, POC Negative Negative [facility] Bilirubin, ur, POC Negative Negative [facility] Ketones, ur, POC Negative Negative [facility] Specific gravity, ur, POC 1.015 1.010 - 1.025 [facility] Blood, ur, POC 3+(A) Negative [facility] pH, ur, POC 6.5 [facility] Comment: Interpretive Data Urine pH is affected by diet, medications, systemic acid-base disturbances, and renal tubular function. pH may affect urinary stone formation. For example, urine pH below 6.0 may help reduce the tendency for calcium phosphate stones and pH greater than 6.0 may reduce the tendency for uric acid stone formation. Source: [facility] [employer]. Last Revised Date: 09-12-2017 Protein, ur, POC Trace Negative [facility] Urobilinogen, ur, POC 0.2 mg/dL mg/dL [facility] Nitrites, ur, POC Negative Negative [facility] Leukocyte esterase, ur, POC Negative Negative [facility] Urine 12/17/2024 5:19 PM CDT 12/17/2024 5:19 PM CDT us Makayla Godinez MD LAB POCT ORDERABLES - DE VICE Final Result [facility] Department [place] [address] from Last 3 Months Additional Health Concerns Infection Onset Date Last Indicated Parainfluenza, droplet 12/19/2024 5 Insurance Care Teams Information Systems Auditor Relationship Specialty Start Date End Date Adilia Conde MD [address] [place] [address] PCP - General Gastroenterology 05/13/24
--- OUTSIDE RECORDS SUMMARY | 2024-12-23 09:29 | XMS_ITS | Referral Summary ---
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 Name Role Phone Adilia Conde MD Primary Care Provider Encounters Date Type Department Care Team Description 12/20/2024 Orders Only [facility] [address] [place] [address] Health 3rd Floor [address] [place] [phone] Freda Adame MD 12/19/2024 7:21 PM CDT - 12/20/2024 12:32 AM CDT Hospital Encounter [address] [phone] Calderon Watts MD , location unknown (Primary Dx) Discharge Disposition: Discharge to home or self care 12/18/[address] [phone] Casey Ferrer MD 12/17/2024 4:45 PM CDT - 12/17/2024 11:53 PM CDT Hospital Encounter [address] [phone] Makayla Godinez MD Terry, Hunter L., MD Discharge Disposition: Discharge to home or self care from Last 3 Months Allergies Active Allergy Reactions Criticality Noted Date [...] mouth once a week Active PNV with [id number] 27 mg iron- 1 mg tablet 1 [...] unknown 12/18/2024 Overview (12/18/2024): Telephone Number Ivett Trevizo [phone] (home) Home Yes Self Yes [] PUL Card Given Working Diagnosis: PUL Date presented: 12/18/24 A/P: Holly Simeon is a 39 y.o. female Non- with PUL. Presented w/spotting, cramping. Positive UPT 12/07. Early IUP vs EPL vs ectopic. 12/17 12/17: quant 1,197. No evidence ectopic. 12/18: called spoke with pt who agreed confirmed she is coming into [facility] tomorrow for 48h repeat quant. [ ] return 12/20 for repeat quant Ultrasound: no evidence ectopic or iup. No GS, adnexa WNL Rh Status: AB Positive [] Rhogam Given Beta Trend: Lab Results Component Value Date HCG 1,197.0 (H) 12/17/2024 HCG <5.0 05/13/2024 PLAN Next beta due: 12/20 Contraception: needs addressed Does the patient have insurance? If not, make clinic appointment for [place] medicaid specialist OR refer to [place] medicaid office. [] Signed out with attending and okay to remove from beta book. Attending Name: Comments Yes Social History Tobacco Use Types Packs/Day Years [...] on file Legal Sex Female 7:51 PM [employer] WORK[employer] Gender Identity Not on file Sexual Orientation Bisexual 12/17/2024 7: 25 PM CDT Last Filed Vital Signs Vital [...] st Contact Info) Description 08/28/2025 Hospital Encounter [facility] [address] [place] [phone] Calderon Watts MD [address] [facility] [address] [place] [address] Procedures Procedure Name Priority Date/Time Associated Diagnosis [...] pathogen panel Nasopharyngeal (12/19/2024 8:30 PM CDT) Influenza A RNA Not Detected Not Detected Influenza B RNA Not Detected Not Detected [facility] RSV RNA Not Detected Not Detected [facility] COVID-19 RNA Not Detected Not Detected [facility] Coronavirus 229E RNA Not Detected Not Detected [facility] Coronavirus HKU1 RNA Not Detected Not Detected [facility] Coronavirus NL63 RNA Not Detected Not Detected [facility] Coronavirus OC43 RNA Not Detected Not Detected [facility] Adenovirus DNA Not Detected Not Detected [facility] Metapneumovirus RNA Not Detected Not Detected [facility] Rhinovirus/Enterov irus RNA Not Detected Not Detected [facility] Parainfluenza 1 RNA Not Detected Not Detected [facility] Parainfluenza 2 RNA Not Detected Not Detected [facility] Parainfluenza 3 RNA Detected(A) Not Detected [facility] Parainfluenza 4 RNA Not Detected Not Detected [facility] B. pertussis DNA Not Detected Not Detected [facility] B. parapertussis DNA Not Detected Not Detected [facility] C. pneumoniae DNA Not Detected Not Detected [facility] M. pneumoniae DNA Not Detected Not Detected [facility] Nasopharyngeal 12/19/2024 8: 30 PM CDT 12/19/2024 9:27 PM CDT Narrative [facility] - 12/19/2024 10:45 PM CDT Is the Patient experiencing symptoms consistent with COVID?->Yes Surveillance testing for transplant patient?->No Interpretive Data The Proxio FilmArray Respiratory Panel (RP2.1) assay is a [...] assay has FDA clearance for testing of [employer] swabs. The performance of additional specimen types has been assessed by the performing laboratory. The performance characteristics of this assay have been determined by [facility] Molecular Infectious Disease Laboratory. Current interpretive data was last revised on 22. Calderon Watts MD LAB MICROBIOLOGY - [facility] L ORDERABLES Final Result [facility] Department [place] [address] * (ABNORMAL) hCG, blood, quantitative (12/19/2024 7:37 PM CDT) hCG, quant 649.0(H) 0.0 - 5.0 IUnits/L [...] NP LAB BLOOD ORDERABLES Elba l Result [facility] [place] [address] [place] [address] * Check Sample (12/17/2024 7:41 PM CDT) ABO Rh AB Positive [facility] HCLL OTHER 12/17/2024 7:41 PM CDT 12/17/2024 7:53 PM CDT Makayla Godinez MD LAB BLOOD ORDERABLES Fin al Result Performing Organization Address [facility] Co de Phone Number [facility] [place] [address] [place] [address] [facility] * eGFR (12/17/2024 7:13 PM CDT) eGFR 74 >=60 mL/min/1. 73 m2 Comment: [...] CDT 12/17/2024 8:53 PM CDT Anna Gordon [employer] LAB BLOOD ORD ERABLES Final Result [facility] Department [place] [address] * (ABNORMAL) Differential, auto (12/17/2024 7:13 PM CDT) Neutrophil abs 4.15 1.50 - 6.50 K/cumm Imm gran abs 0.03 0.00 - 0.10 K/cumm [facility] Lymphocyte abs 1.21 0.80 - 3.30 K/cumm [facility] Monocyte abs 1.04(H) 0.20 - 0.80 K/cumm [facility] Eosinophil abs 0.13 0.00 - 0.50 K/cumm [facility] Basophil abs 0.03 0.00 - 0.10 K/cumm [facility] Neutrophil pct 62.8 % [facility] Comment: Interpretive Data Percent cell count reference ranges are not reported, since discordance with absolute values may lead to misinterpretation of CBC data. Current Interpretive Data was last revised on 2017. Imm gran pct 0.5 % [facility] Comment: Interpretive Data Percent cell count reference ranges are not reported, since discordance with absolute values may lead to misinterpretation of CBC data. Current Interpretive Data was last revised on 2017. Lymphocyte pct 18.4 % [facility] Comment: Interpretive Data Percent cell count reference ranges are not reported, since discordance with absolute values may lead to misinterpretation of CBC data. Current Interpretive Data was last revised on 2017. Monocyte pct 15.8 % [facility] Comment: Interpretive Data Percent cell count reference ranges are not reported, since discordance with absolute values may lead to misinterpretation of CBC data. Current Interpretive Data was last revised on 2017. Eosinophil pct 2.0 % [facility] Comment: Interpretive Data Percent cell count reference ranges are not reported, since discordance with absolute values may lead to misinterpretation of CBC data. Current Interpretive Data was last revised on 2017. Basophil pct 0.5 % [facility] Comment: Interpretive Data Percent cell count reference ranges are not reported, since discordance with absolute values may lead to misinterpretation of CBC data. Current Interpretive Data was last revised on 2017. Blood 12/17/2024 7:13 PM CDT 12/17/2024 7:24 PM CDT Anna Gordon LAB BLOOD ORD ERABLES Final Result Performing Organization Address City/[facility]/ZIP Co de Phone Number [facility] [address] [place] [address] [place] [address] * CBC with auto differential (12/17/2024 7:13 PM CDT) WBC 6.59 3.80 - 9.90 K/cumm Hgb 12.4 11.9 - 15.5 g/dL [facility] Hct 38.1 35.6 - 45.5 % [facility] Plt 224 150 - 400 K/cumm [facility] MPV 10.2 9.1 - 12.3 fL [facility] RBC 4.50 3.90 - 5.20 M/cumm [facility] MCV 84.7 81.3 - 96.4 fL [facility] MCH 27.6 27.1 - 33.3 pg [facility] MCHC 32.5 32.3 - 35.7 g/dL [facility] RDW CV 14.3 11.1 - 14.9 % [facility] RDW SD 43.9 35.7 - 48.1 fL [facility] NRBC abs 0.00 0.00 - 0.01 K/cumm [facility] Blood 12/17/2024 7:13 PM CDT 12/17/2024 7:24 PM CDT Anna Gordon LAB BLOOD ORD ERABLES Final Result Performing Organization Address City/[facility]/ZIP Co de Phone Number [facility] Department [place] [address] * Type and screen (12/17/2024 7:13 PM CDT) [facility] ABO Rh AB Positive Cesar, indirect Negative [facility] Blood 12/17/2024 7:13 PM CDT 12/17/2024 7:27 PM CDT Narrative [facility] - 12/17/2024 8:30 PM CDT Has the patient had Daratumumab or Isatuximab in the past 6 months?->Unknown [facility] LAB BLOOD BAN K TEST ORDERABLES Final Result Performing Organization Address [facility] de Phone Number [facility] [place] [address] [place] [address] * (ABNORMAL) hCG, blood, quantitative (12/17/2024 7:13 PM CDT) [facility] hCG, quant 1,197.0(H ) 0.0 - 5.0 [...] PM CDT 12/17/2024 8:53 PM CDT [facility] LAB BLOOD ORD ERABLES Final Result Performing Organization Address [facility] Co de Phone Number [facility] [address] [place] [address] [place] [address] * Comprehensive metabolic panel (12/17/2024 7:13 PM CDT) [facility] Sodium 141 135 - 145 mmol/L Potassium, pl 4.0 3.3 - 4.9 mmol/L [facility] Chloride 104 97 - 110 mmol/L [facility] CO2 27 22 - 32 mmol/L [facility] Anion gap 10 2 - 15 mmol/L [facility] BUN 11 6 - 25 mg/dL [facility] Creatinine 1.00 0.60 - 1.10 mg/dL [facility] Glucose 91 70 - 199 mg/dL [facility] Comment: Interpretive Data Fasting glucose >/= 126 [...] 2022. Calcium 9.5 8.5 - 10.3 mg/dL [facility] Bilirubin, total 0.2 0.1 - 1.2 mg/dL [facility] Protein, pl 7.6 6.5 - 8.5 g/dL [facility] Albumin 3.9 3.5 - 5.0 g/dL [facility] Alk phos 75 40 - 130 Units/L [facility] ALT 17 7 - 45 Units/L [facility] AST 26 10 - 45 Units/L [facility] Blood 12/17/2024 7:13 PM CDT 12/17/2024 8:53 PM CDT Anna Gordon [employer] LAB BLOOD ORD ERABLES Final Result [facility] Department [place] [address] * (ABNORMAL) POCT urinalysis (Clinitek) (12/17/2024 5:19 PM CDT) Color, ur, POC Yellow Yellow Clarity, UA, POC Clear Clear [facility] Glucose, ur, POC Negative Negative [facility] Bilirubin, ur, POC Negative Negative [facility] Ketones, ur, POC Negative Negative [facility] Specific gravity, ur, POC 1.015 1.010 - 1.025 [facility] Blood, ur, POC 3+(A) Negative [facility] pH, ur, POC 6.5 [facility] Comment: Interpretive Data Urine pH is affected by diet, medications, systemic acid-base disturbances, and renal tubular function. pH may affect urinary stone formation. For example, urine pH below 6.0 may help reduce the tendency for calcium phosphate stones and pH greater than 6.0 may reduce the tendency for uric acid stone formation. Source: [place]. Last Revised Date: 09-12-2017 Protein, ur, POC Trace Negative [facility] Urobilinogen, ur, POC 0.2 mg/dL mg/dL [facility] Nitrites, ur, POC Negative Negative [facility] Leukocyte esterase, ur, POC Negative Negative [facility] Urine 12/17/2024 5:19 PM CDT 12/17/2024 5:19 PM CDT Makayla Godinez MD LAB POCT ORDERABLES - DE VICE Final Result [facility] Department [place] [address] from Last 3 Months Additional Health Concerns Infection Onset Date Last Indicated Parainfluenza, droplet 12/19/2024 5 Insurance [facility] Care Teams Special Warfare Boat 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
--- OUTSIDE RECORDS SUMMARY | 2024-12-23 09:30 | XMS_ITS | Data Portability ---
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 Positive [facility]. Tenderness with palpitation over lateral ankle, no [...] with palpation over the hamstrings. Positive [facility]. BMI 45.7. MRI was reviewed, demonstrating intact [...] therapy R knee 2023 024 [facility], [address] [place] [address], [place], [address], 11:06:38 physical therapist referral - cont....pat ient will call to schedule [address] [facility], [address] [place], [address], 14:54:07 physical therapist referral - Please contact pt to schedule for R knee post op meniscus repair (11/21/2023) . Thanks [address] [facility] [place], [address] [place], [address], 4 17:16:55 Procedures injection/a spiration joint/bursa (PROC) 2023 [email or web address] In-Office Order, Internal Use Only DO Not Attach Compendium DO Not Attach Compendium, Do Not Delete/merge, [id number] 12:28:56 Surgeries None recorded. Imaging MRI, knee, w/o contrast 2023 [facility] ([facility]), [address], [place], [address], 4 16:13:10 Medication Orders bupivacaine HCl 0.5 % (5 mg/mL) injection solution [facility]23 [id number], [address] , [place], [address], 4 11:06:38 Kenalog 10 mg/mL suspension for injection 2023 [id number], [address], [place], [address], 4 11:06:38 meloxicam 15 mg tablet [id number], [address] , [place], [address], 4 11:06:38 Mobic 15 mg tablet 2023 024 [id number], [address], [place], [address], 14:54:07 Patient TargetsNo targets recorded. Patient InstructionsNo [...] ast No observ ation record ed. [email or web address] [facility] [address] [place], [address], 07/20/2024 16:14:57 Result Notes None recorded. Problems Name Problem SNOMED Code Status Onset Date Resolution Date Notes Provider Name and Address Organization Details Recorded Time Sprain of right ankle 2439980370961 9105 Active 2020 Not Available [facility] 3 16:10:16 Pain of right ankle joint 6493334207646 9106 Active 2021 Not Available [facility] 3 16:10:16 Postoperat jeanne visit 000061905 Active 2020 Not Available [facility] 3 16:10:16 Ankle joint effusion 492056890 Active 2021 Not Available [facility] 3 16:10:16 Postoperat jeanne pain 132816786 Active 2020 Not Available [facility] 3 16:10:17 Right sided abdominal pain 947227723 Active Not Available [facility] 3 16:10:17 Stiffness of right ankle 8305528689690 04 Active 2021 Not Available [facility] 3 16:10:17 Adhesive capsulitis of shoulder 412220651 Active Not Available [facility] 3 16:10:17 Patellofem oral stress syndrome 002127782 Active 2021 Not Available [facility] 3 16:10:17 Foot pain 76846643 Active 2021 Not Available [facility] 3 16:10:17 Closed fracture of phalanx of foot 92561954 Active Not Available [facility] 3 16:10:17 Pain in limb 84312000 Active Not Available [facility] 3 16:10:17 Pain of right knee joint 1765597452430 00 Active 2022 ESTEFANI Reis, [place] [facility] 3 11:05:55 Effusion of joint of right knee 2442218954812 04 Active 2022 YASMINE Agrawal [address], [place], [address] , [facility] 3 12:27:57 Derangemen t of right knee 4588631422779 9109 Active 2022 YASMINE Agrawal [address], [address], [place], [address] , [facility] 3 15:04:19 Tear of medial meniscus of knee 291934611 Active 2023 Rao Jackson MD [address], [place], [address] , [facility] 4 00:14:46 Tear of medial meniscus of knee 771327876 Active 2023 Rao Jackson MD [address], [place], [address] , [facility] 4 17:35:35 Synovial plica syndrome of right knee 4677127426344 00 Active 2023 Rao Jackson MD [address], [place], [address] , [facility] [facility] 4 17:35:44 Problem Notes None recorded. Procedures Surgical History Date Name Laterality Status Provider Name and Address Organization Details Recorded Time 08/03/20 24 Ortho - Cortisone Injection completed Rao Jackson MD [address], [place], [address], [facility] [employer] [facility] 08/03/2024 12:54:35 11/21/19 24 Knee Surgery completed TEE Whatley [facility] [facility] 02/10/2024 16:00:11 Tonsillectomy completed Not Available [facility] 10/31/2022 16:10:02 Ankle Surgery completed Not Available [facility] 10/31/2022 16:10:02 Imaging Results Imaging Date Name Status LastModified by Organiz ation Details LastModified Time 04/06/2024 XR, knee, 4 or more view completed Information not available 04/06/2024 16:27:27 04/06/2024 XR, ankle, 3 or more view completed Information not available 04/06/2024 16:27:27 07/20/2024 MRI, knee, w/o contrast completed [address] [place], [address], 07/20/2024 16:14:57 Procedure Notes None recorded. Medical Equipment None Reported. Allergies Allergen ID Allergen Name Allergen Category Reaction Reaction Severity Criticality Documentation Date Start Date Code Code System Note Provider Name and Address Organization Details Recorded Time 40919 acetamino phen / hydrocodo ne medicatio n Not available Not available Not available 10/31/2022 26127 2 RxNorm Not Available [facility] 3 16:11:19 38442 Toradol medicatio n Not available Not available Not available 10/31/2022 38508 RxNorm Not Available [facility] 3 16:11:19 Medications Name Sig Start [...] 1 mL by injection route. 2023 active VTC: 0003- 0494- 20 Not Available Not Available [...] Available Not Available Not Available Gregorio Higgins [facility] spacer DIRECTED 06/26 completed Not Available [...] Updated DateTime 01/08/2024 157.48 cm 44.8 kg/m2 566690.13 g Ingrid Hdez, ATC L [place] [facility] [employer] [facility] 01/08/2024 14:19:16 Date Recorded Body height Body mass index (BMI) Body weight Provider Name and Address Organization Details Last Updated DateTime 03/04/2024 157.48 cm 45.7 kg/m2 138104.09 g Diann Maik [facility] [employer] [facility] 03/04/2024 14:47:34 Date Recorded Body height Body mass index (BMI) Body weight Pain severity - 0-10 verbal numeric rating [Score] - Reported Provider Name and Address Organization Details Last Updated DateTime 04/07/2024 157.48 cm 45.7 kg/m2 787026.09 g Alta Candace Arroyo [facility] [employer] [facility] 04/07/2024 09:13:57 Date Recorded Body height Body mass index (BMI) Body weight Pain severity - 0-10 verbal numeric rating [Score] - Reported Provider Name and Address Organization Details Last Updated DateTime 07/01/2024 157.48 cm 45.7 kg/m2 226135.09 g 6 [facility] [employer] [facility] 07/01/2024 14:13:14 Date Recorded Body height Body mass index (BMI) Body weight Pain severity - 0-10 verbal numeric rating [Score] - Reported Provider Name and Address Organization Details Last Updated DateTime 08/03/2024 157.48 cm 45.7 kg/m2 074607.09 g 6 [facility] [employer] 08/03/2024 12:09:12 Social History Question Answer Notes LastModified by Organizat ion Details LastModified Time Tobacco Smoking Status Never Smoker Not Available [email or web address] 10/31/2022 16:10:01 What Is Your Level Of Alcohol Consumption? None [id number] Information not available 10/31/2022 If You Are , What Was Your Level Of Alcohol Consumption Prior To ? Occasional [email or web address] Information not available 08/03/2024 What Was The Date Of Your Most Recent Tobacco Screening? 08/03/2024 [email or web address] Information not available 08/03/2024 Have You Recently Traveled Abroad? No [id number] Information not available 10/31/2022 Sex: Unknown Functional Status None recorded. Mental Status None recorded. Family History Relationship Description Onset Age of this Age Resolved Age Notes LastModified by Organization Details LastModified Time Father No current problems or disability [email or web address] Not available 10/2023 11:56:41 Mother No current problems or disability [email or web address] Not available 10/2023 11:56:41 Mother Family history of malignant neoplasm [email or web address] Not available 08/03 11:56:41 Mother Complication of anesthesia [email or web address] Not available 10/2023 11:56:41 Mother Hypertensive disorder [email or web address] [id number] Not available 10/31/2022 16:10:02 Medical History Condition Response ALLERGIES/HAYFEVER Y LUNG DISEASE/DISORDER N INSOMNIA N COPD N RADIATION / CHEMOTHERAPY N RHEUMATOID ARTHRITIS N HIGH CHOLESTEROL / HYPERLIPIDEMIA N EDEMA N CAROTID BLOCKAGE N DEPRESSION (INCLUDING POST ) Y BOWEL PROBLEMS N BACK / NECK PROBLEMS Y HAVE YOU BEEN HOSPITALIZED OR SEEN IN [facility] IN THE PAST YEAR ? N STROKE/TIA N THYROID DISEASE N OBESITY Y ANEURYSM N HISTORY WITH COMPLICATIONS WITH ANESTHES IA ? N FIBROMYALGIA N OSTEOPOROSIS N URINARY/BLADDER/KIDNEY PROBLEMS [...] SNOMED-CT Code Diagnosis ICD10 Code Diagnosis Note [id number] [facility] [address] [place] [address] 02/22/2021 00:00:00 02/23/2021 08:42:44 [id number] [facility] [place] [address] [place] [address] 03/27/2021 00:00:00 03/28/2021 12:15:00 [id number] [facility] [place] [address] [place] [address] 04/24/2021 00:00:00 04/25/2021 06:42:32 [id number] [facility] [place] [address] [place] [address] 05/22/2021 00:00:00 05/23/2021 11:46:04 [id number] [facility] [place] [address] [place] [address] 06/29/2021 00:00:00 06/30/2021 10:23:36 [id number] [facility] [place] [address] [place] [address] 07/06/2021 00:00:00 07/09/2021 21:14:39 [id number] [facility] [place] [address] [place] [address] 07/20/2021 00:00:00 07/22/2021 14:21:20 [id number] [facility] [place] [address] [place] [address] 08/10/2021 00:00:00 08/15/2021 11:29:23 [id number] [facility] [place] [address] [place] [address] 09/14/2021 00:00:00 09/15/2021 09:29:57 [id number] [facility] [place] [address] [place] [address] 11/02/2021 00:00:00 11/06/2021 10:16:59 [id number] [facility] [place] [address] [place] [address] 02/12/2022 00:00:00 02/13/2022 09:10:47 [id number] [facility] [place] [address] [place] [address] 03/26/2022 00:00:00 03/27/2022 11:26:34 [id number] [facility] [place] [address] [place] [address] 05/28/2022 00:00:00 05/30/2022 18:03:17 [id number] [facility] [place] [address] [place] [address] 06/26/2022 00:00:00 06/26/2022 16:20:[id number] [address] 01/25/2021 00:00:00 01/25/2021 16:46:[id number] [address] 02/23/2021 00:00:00 02/25/2021 21:20:[id number] [address] 03/23/2021 00:00:00 03/23/2021 15:29:17 [id number] YASMINE Agrawal [facility] [place] [address] [place] [address] 08/02/2023 11:01:53 08/02/2023 12:11:56 Pain of right knee joint 3317567172 38641 M25.561 Effusion o f joint of right knee 2073252434 26773 M25.708 [id number] YASMINE Agrawal [facility] [place] [address] [place] [address] 08/08/2023 14:25:34 08/08/2023 14:59:09 Effusion of joint of right knee 8219963959 97408 M25.461 Pain of ri ght knee joint 7308432459 20547 M25.561 Derangemen t of right knee 5029945676 1025185 M23.91 [id number] Rao Jackson MD [facility] [place] [address] [place] [address] 09/11/2023 14:05:37 09/11/2023 14:23:25 Pain of right knee joint 2430876643 89194 M25.561 Tear of me dial meniscus of knee 427092706 S83.241A [id number] Rao Jackson MD [facility] [place] [address] [place] [address] 10/16/2023 14:48:35 10/16/2023 15:44:46 Pain of right knee joint 0059462965 58533 M25.561 Tear of me dial meniscus of knee 633299963 S83.241A Synovial p lica syndrome of right knee 3319629688 33578 M67.51 [id number] Lesia Randolph NP [facility] [place] [address] [place] [address] 12/04/2023 14:11:50 12/04/2023 14:46:45 Pain of right knee joint 4059198113 29249 M25.561 Tear of me dial meniscus of knee 230941679 S83.241A [id number] Rao Jackson MD [facility] [place] [address] [place] [address] 12/18/2023 13:59:59 12/18/2023 14:59:22 Pain of right knee joint 4123429256 58397 M25.561 Tear of me dial meniscus of knee 755157456 S83.241A [id number] Lesia Randolph NP [facility] [place] [address] [place] [address] 01/08/2024 14:09:56 01/08/2024 14:56:33 Pain of right knee joint 6288351930 72566 M25.561 Tear of me dial meniscus of knee 421643634 S83.241A [id number] Rao Jackson MD [facility] [place] [address] [place] [address] 03/04/2024 14:44:54 03/04/2024 15:27:49 Pain of right knee joint 3376301610 03021 M25.561 Tear of me dial meniscus of knee 913676598 S83.241D [id number] Lesia Randolph NP [facility] [place] [address] [place] [address] 04/07/2024 09:10:23 04/07/2024 10:17:09 Pain of right knee joint 8012686551 29354 M25.539 [id number] Rao Jackson MD [facility] [place] [address] [place] [place] [address] 07/01/2024 14:10:44 07/01/2024 14:50:42 Derangement of right knee 8034727376 5534676 M23.91 Pain of ri ght ankle joint 0734932796 8259076 M25.571 Postoperative visit 1836 21036 Z09 [id number] Rao Jackson MD [facility] [place] [address] [place] [address] 08/03/2024 11:55:37 08/03/2024 12:35:35 Tear of medial meniscus of knee 133044064 S83.241D Pain of ri ght knee joint 9681543656 95803 M25.561 Health Concerns Section Related Observation LastModified by Organization Detai ls LastModified Time None Recorded Concern Status LastModified by Organization Details LastModified Time None Recorded Advance Directives Directive None Recorded Payers Encounter Date Sequence Insurance Name Policy Number Policy Mahmood Covered Member ID Mahmood Member ID Guarantor Name 01/08/2024 1 [facility] (MEDICAID HMO) [id number] Holly N Hampton [id number] Holly N [place] 03/04/2024 1 [facility] (MEDICAID HMO) [id number] Holly N Hampton [id number] Holly N [place] 04/07/2024 1 [facility] (MEDICAID HMO) [id number] Holly N Hampton [id number] Holly N [place] 07/01/2024 1 [facility] (MEDICAID HMO) [id number] Holly Raphael Hampton [id number] Holly N [place] 08/03/2024 1 [facility] (MEDICAID HMO) [id number] Holly N Hampton [id number] Holly Raphael Hampton-[place] OBGyn Episode No OBEpisode recorded.
== END 2024-12-23 08:53 | disposition home or self-care (01) ==
LOC: CHSIMG 08:53
PROVIDERS: PCP Internal Medicine Gastroenterology; Visit Provider Obstetrics & Gynecology Gynecology
DX: O26.21 Pregnancy care for patient with recurrent pregnancy loss, first trimester (principal)
CPT/HCPCS: 76801; 76817

== ENCOUNTER 2025-05-17 09:04 | Emergency (ER) | payer OTHER, SELFPAY ==
--- NOTE | ~2025-05-17 | XR_ITS ---
EXAMINATION: XR ankle RT 2V, 05/17/2025 10:10 CDT HISTORY: pain COMPARISON: No comparisons available. Findings: No acute fracture or malalignment. No significant degenerative changes. Soft tissues unremarkable. Impression: No acute fracture or malalignment. Reviewed, dictated and finalized at location A. Impression: No acute fracture or malalignment.
--- NOTE | ~2025-05-17 | XR_ITS ---
EXAMINATION: XR foot RT min 3V, 05/17/2025 10:10 CDT HISTORY: pain COMPARISON: No comparisons available. Findings: No acute fracture or malalignment. No significant degenerative changes. Soft tissues unremarkable. Impression: No acute fracture or malalignment. Reviewed, dictated and finalized at location A. Impression: No acute fracture or malalignment.
[2025-05-17 09:11] VITALS: BP 160/87; PULSE 94; RESP 18; TEMP 36.7; O2SAT 100
--- NOTE | 2025-05-17 09:47 | ED_ITS ---
HPI - General Adult General Chief complaint: Extremity Injury, Lower Stated complaint: Right Foot Injury Time Seen by Provider: 05/17/25 09:15 History of Present Illness HPI narrative: Holly Simeon is a 39-year-old female who presents today with complaints of having right foot and ankle pain. She states that she fell down about 5 stairs 10 days ago. She states that she was playing with a friend and did not think much of it and continue to play and then the next morning she felt that her right ankle and foot were sore. She states that she did sprained this ankle in the past and she thought it would just get better but not later she continued to have pain with ambulation and range of motion and want to get it checked out. She is not taking anything for the pain today. She states she did take ibuprofen last night with minimal relief. Related Data Home Medications ?Medication ?Instructions ?Recorded ?Confirmed ?Last Taken ?Type quetiapine 25 mg tablet mg 09/16/24 Unknown History Allergies Allergy/AdvReac Type Severity Reaction Status Date / Time hydrocodone AdvReac Mild Vomiting Verified 05/17/25 10:12 tramadol AdvReac Unknown ANXIETY/HEART Verified 05/17/25 10:12 RACING Review of Systems Review of Systems: All systems reviewed & are unremarkable except as noted in HPI and below PMFSH Past Medical History Medical History COVID-19 Menorrhagia Ectopic treated with methotrexate (normal spontaneous vaginal delivery) Bipolar 1 disorder PCOS (polycystic ovarian syndrome) Morbid obesity Anxiety Asthma Migraine Surgical History Surgical History History of dental surgery History of adenoidectomy Hx of tonsillectomy Family History Family History Father Unknown family medical history Mother Hypertension Breast cancer Lupus (systemic lupus erythematosus) Social History Social History Smoking status: Never smoker Tobacco type: cigarettes Second hand tobacco smoke exposure: No (Holly reports being a light smoker when drinking) Alcohol intake: current Drinks per week: 2 Alcohol use details: reporting quitting 10/31/2020 Substance use: never Substance use type: does not use Living arrangements: with family Additional living arrangements comments: DAUGHTER Occupation/Education: occupation Gender identity (if verbalized by the patient): Female Sexual Orientation (if Verbalized by the Patient): Straight or Heterosexual Spiritual care concerns: No Exam Narrative: GENERAL: Well-appearing, well-nourished, and in no acute distress. HEAD: Normocephalic, atraumatic. EYES: PERRLA and EOMI. ENT: Nares clear, no rhinorrhea or epistaxis. Mucous membranes moist. Oropharynx without tonsillar hypertrophy exudate or other lesions. NECK: Supple. No adenopathy or masses. No carotid bruits or JVD CHEST: Clear to auscultation. No respiratory distress. No wheezes rales or rhonchi HEART: Regular rate and rhythm. No murmur heard. Normal peripheral pulses. ABDOMEN: Soft, nontender, nondistended, normal active bowel sounds. EXTREMITIES: Normal range of motion. All right ankle noted to have lateral swelling the questionable swelling to the top her foot no obvious deformity, strong pulses present SKIN: Warm, dry, no rash. NEURO: No focal deficits. Alert and oriented x3. PSYCH: Normal mood and affect. Course Vital Signs Vital signs: Vital Signs Temperature 36.7 C 05/17/25 09:11 Pulse Rate 94 05/17/25 09:11 Respiratory Rate 18 05/17/25 09:11 Blood Pressure 160/87 H 05/17/25 09:11 Pulse Oximetry 100 05/17/25 09:11 Oxygen Delivery Room Air 05/17/25 09:11 Temperature 36.7 C 05/17/25 09:11 Pulse Rate 94 05/17/25 09:11 Respiratory Rate 18 05/17/25 09:11 Blood Pressure 160/87 H 05/17/25 09:11 Pulse Oximetry 100 05/17/25 09:11 Oxygen Delivery Room Air 05/17/25 09:11 Medical Decision Making MDM Narrative Medical decision making narrative: Patient presented to the ED with complaint of Right foot pain after inversion injury. Vitals were within acceptable limits. Physical exam revealed tenderness at right foot, anterior distal aspect Based on the patient's history and physical exam, I am concerned for fracture vs sprain. Patient was given 30 mg of Ketorolac IM and 1000 mg of Acetaminophen for pain. Ankle and foot xrays were obtained showing Negative for any acute bone abnormality GLENN wrap applied to injured extremity. Patient given strict return precautions if pain is worse or there is poor blood flow to the extremity, and advised to rest the limb and to followup with orthopedics as needed. DISPOSITION: Home FOLLOW UP [facility] PCP with Orthopedics referral if needed FINAL IMPRESSION(S): 1. ankle sprain Vital Signs Vital Signs: Vital Signs Temperature 36.7 C 05/17/25 09:11 Pulse Rate 94 05/17/25 09:11 Respiratory Rate 18 05/17/25 09:11 Blood Pressure 160/87 H 05/17/25 09:11 Pulse Oximetry 100 05/17/25 09:11 Oxygen Delivery Room Air 05/17/25 09:11 Temperature 36.7 C 05/17/25 09:11 Pulse Rate 94 05/17/25 09:11 Respiratory Rate 18 05/17/25 09:11 Blood Pressure 160/87 H 05/17/25 09:11 Pulse Oximetry 100 05/17/25 09:11 Oxygen Delivery Room Air 05/17/25 09:11 Vitals reviewed by me Imaging Data Radiologist's impression: Impressions Ankle X-Ray 05/17/25 10:29 Impression: No acute fracture or malalignment. Foot X-Ray 05/17/25 10:29 Impression: No acute fracture or malalignment. Discharge Plan Discharge Clinical Impression: Ankle sprain Qualifiers: Encounter type: initial encounter Involved ligament of ankle: unspecified ligament Laterality: right Qualified Code(s): S93.401A - Sprain of unspecified ligament of right ankle, initial encounter Patient Disposition: Home Condition: Stable Instructions: Antibiotic Form Additional Instructions: Continue to wear the glenn wrap, elevate and Ice 20 mins at a time Continue Tylenol and Motrin for pain You may also take the cyclobenzaprine for severe spasm pain- this medication might make you sleepy- do not drive or operate machinery while taking this medication Bear weight as tolerated Follow up with your PCP in 1 week to ensure this is improved IF you have continued pain after a week of rest/ice/ wrapping then follow up with orthopedics as we discussed. Patient Language: Israeli Prescriptions: New cyclobenzaprine 10 mg tablet 10 mg PO TID PRN (Reason: muscle spasm) Qty: 30 0RF No Action quetiapine 25 mg tablet methylprednisolone [Medrol (Uday)] 4 mg tablets,dose pack See Rx Instructions .ROUTE .COMPLEX Qty: 21 0RF Rx Instructions: orally per package directions ibuprofen 600 mg tablet 600 mg PO Q6H PRN (Reason: pain) 5 Days Qty: 20 0RF ibuprofen 800 mg tablet 800 mg PO TID PRN (Reason: pain) 7 Days Qty: 21 0RF acetaminophen 500 mg tablet 1,000 mg PO TID PRN (Reason: marcellus) 7 Days Qty: 42 0RF acyclovir 800 mg tablet 800 mg PO Q4H Qty: 35 0RF Rx Instructions: while awake; give 5 doses in 24 hours Follow-up/Referrals: Elton,Adilia Ramirez MD [Primary Care Provider] - 1 Week Fabian Daily MD [Physician, Orthopedics] - 1 Week Stand Alone Forms: Work/School Release IP Time of Disposition: 10:58
--- OUTSIDE RECORDS SUMMARY | 2025-05-17 09:48 | XMS_ITS | Clinical Summary ---
Author Organization [facility] Address [facility] [place] [address] Care Team Providers Care Manager Medical Name Role Phone Adilia Conde MD Primary [...] mouth once a week Active PNV with [id number] 27 mg iron- 1 mg tablet 1 tablet Active acetaminophen (TYLENOL) 500 mg tablet Take 1 tablet (500 mg total) by mouth every 6 (six) hours as needed for pain 60 tablet 12/20/2024 Active ibuprofen (ADVIL,MOTRIN) 600 mg tablet Take 1 tablet (600 mg total) by mouth every 6 (six) hours as needed for pain 30 tablet 12/20/2024 Active medroxyPROGESTE Paul (PROVERA) 10 mg tabletIndicatio ns:Abnormal Uterine Bleeding due to Hormonal Imbalance Take 1 tablet (10 mg total) by mouth daily for 10 days 10 tablet 03/02/2025 Active Active Problems Problem Noted Date Diagnosed Date Family history of breast cancer in mother 2024 Overview (04/16/2025): Affected relatives/ages/type of cancer: Mother, invasive breast cancer, age 42 S/p counseling, patient elected to proceed with [employer] genetic risk screening Plan: - Referral placed to Dr. Freed/[facility] for elevated lifetime risk score >20% Likely will need screening starting at age 30 with mammogram +/- Breast MRI w/ and w/o contrast or US Encounter for preconception consultation 025 Overview (03/04/2025): Reports she has had 4 losses back to back and hopes to be in the future. She is currently not in a relationship. Her past couple of losses have been with the same partner, prior pregnancies with a different partner. hx as follows: G1- full term delivery (2004) G2- ectopic G3, reports had an US with +FHT, subsequently passed tissue G4/G5 pregnancies she has had elevated bHCG, however, not able to see FP on US, most c/w chemical x2 G5 called OB to get vaginal progesterone. However, reports it took a week and a half from calling office to getting rx, and she is worried that this caused the loss. She presented for workup of loss. She had a live , followed by SAB, ectopic, then 2 chemical pregnancies. She underwent the following evaluation: She had APLS testing that was negative. Myriad screening in process. Free testosterone 1.69 (elevated). A1c 6.0%. PRL/TSH normal. Karyotype 46XX. TVUS with normal size uterus, fibroids intramural and anterior 8.2mm mean diameter. Normal bilateral ovaries. She does not desire right now, but she is more concerned about the ability to continue a in the future. We discussed recommendation for semen analysis if with prior partner and the role of semen analysis with a different partner. Counseled patient that early loss occurs in 10-15% of all clinically recognized pregnancies and occurs due to chromosomal abnormalities greater than 50% of the time. Discussed that only 2% of women experience two losses in a row, and only about 1% have three consecutive losses. After one miscarriage, the chance of a second miscarriage is about 14 to 21 percent. After two or three miscarriages the rate is 24 to 29 percent and 31 to 33 percent. Risks increased with advanaced maternal age and prior loss. We discussed that her 8 week miscarriage is a clinically recognized , but having two Chemical pregnancies does not perfectly fit in any diagnostic algorithm. We discussed a return visit at time of planning for a future and using OPKs to help time intercourse to increase chances of achieving pregnancies. PCOS (polycystic ovarian syndrome) 03/04/2025 Overview (03/04/2025): I reviewed with the patient the diagnosis of PCOS. The usual criteria for PCOS are abnormal menstrual cycles and evidence of hyperandrogenemia, which she meet given her oligomenorrhea and elevated serum testosterone. We discussed the role of insulin resistance and hyperinsulinemia in PCOS. I reviewed the termite control servicer sequelae including endometrial hyperplasia or cancer. We discussed the need for regular endometrial withdrawal. I reviewed the risks of dyslipidemia, coronary artery disease, hypertension, and diabetes on future health. We discussed that PCOS can be a cause of difficulty conceiving due to anovulation. I reviewed the essential role of weight loss, exercise and diet in treating the symptoms of PCOS. We discussed that the treatment for PCOS depends of the goal of therapy. We discussed that people with PCOS can achieve spontaneous , but infertility rates are increased compared to patients without PCOS. There are fertility treatment options available if she would like to discuss further. She plans to implement lifestyle changes and follow up with PCP on elevated A1c (6.0%). AUB Menstrual history: she reports menarche at 10yo. Had been on DMPA 12-18yo. Had her daughter as soon as she got off DMPA. Was on DMPA following delivery and has also previously been on patch and implanon. She has not been on any control since 2009. Reviewed potential causes of AUB, specifically PALM COEIN Symptoms most consistent with AUB-O Workup: TVUS with normal size uterus, fibroids intramural and anterior 8.2mm mean diameter. Normal bilateral ovaries. Endometrial biopsy: deferred given PCOS diagnosis and < 3 months between periods, discussed role of provera for endometrial protection STI screening: neg 2022 Pap: yes, most recently normal 09/2022 per pt, got annual visit around October of this year CBC: Hgb 12.4 Prolactin: 10.0 Thyroid function: TSH 2.37 DHEAS, 17OHP, free testosterone: 163 (nl); < 40 (nl); 1.69 (elevated) Acne/Hirsutism: none Patient is going to try a provera challenge. We discussed the role of using provera for endometrial protection if no cycle for 3 months. Also discussed the role of use when trying to get to have regular cycles. She has not had resumption of menses after SAB in December Resolved Problems Problem Noted Date Diagnosed Date Resolved Date , location unknown 12/18/2024 04/16/2025 Overview (01/08/2025): Telephone Number Relationship Voicemail Mendoza [phone] (home) Home Yes Self Yes [x] PUL Card Given Working Diagnosis: PUL Date presented: 12/18/24 A/P: Holly Simeon is a 39 y.o. female Non- with PUL. Presented w/spotting, cramping. Positive UPT 12/07. Early IUP vs EPL vs ectopic. 12/17 12/17: quant 1,197. No evidence ectopic. 12/18: called spoke with pt who agreed confirmed she is coming into [facility] tomorrow for 48h repeat quant. 12/19: quant 649. 41% decrease. No e/o ectopic 12/23: patient will present to [facility] 12/24-- did not. 12/29: called and left VM/epic messaged pt to come into [facility] or clinic for repeat quant. 01/08: spoke with pt over phone. Got quant at outside facility. Quant 4.0. 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 Tasked for [facility]-3 appt. Ultrasound: no evidence ectopic or iup. No GS, adnexa WNL Rh Status: AB Positive [] Rhogam Given Beta Trend: Lab Results Component Value Date HCG 1,197.0 (H) 12/17/2024 HCG <5.0 05/13/2024 PLAN Next beta due: 12/20 Contraception: needs addressed Does the patient have insurance? If not, make clinic appointment for [place] medicaid specialist OR refer to [place] medicaid office. [] Signed out with attending and mendoza to remove from beta book. Attending Name: Encounters Date Type Department Care Team Description 04/30/2025 Orders Only [address] [phone] Brenda Beaulieu MD At increased risk of breast cancer (Primary Dx); Family history of breast cancer in mother 04/16/[address] [phone] Brenda Beaulieu MD 03/02/2025 3:15 PM CDT Office Visit Obstetrics and Gynecology Clinic [address] [place] [address] [address]rd Floor [address] [place] [phone] Brenda Beaulieu MD Healthcare maintenance (Primary Dx); PCOS (polycystic ovarian syndrome); Encounter for preconception consultation 03/02/2025 2:01 PM CDT - 03/02/2025 11:59 PM CDT Hospital Encounter [facility] - Ultrasound [address] [place] [address], 7th Floor, [address] [facility] [place] [address] Recurrent loss Discharge Disposition: Discharge to home or self care 02/16/2025 Results Follow-Up [address] [phone] Lexie Penaloza MD Prolactin, Hemoglobin A1c, Testosterone, Total and Free, Serum from Last 3 Months Surgical History Surgery [...] alcohol) 1.5 pint vodka q other day Hunger Vital Sign Answer Date Recorded Within the past 12 months, y ou worried that your food would run out before you got the money to buy more. Never true 03/02/20 Within the past 12 months, t he food you bought just didn't last and you didn't have money to get more. Never true 03/02/2025 Personal Safety Answer Date Recorded Have you ever been in or are you currently in a harmful physical or emotional relationship or is someone making you feel afraid or unsafe? 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 Gender Identity Not on file Sexual Orientation Bisexual 12/17/2024 7: 25 PM CDT Obstetrics History Para Term AB IAB SAB Ectopic Multiple Livin g Live Births 5 1 1 4 3 1 1 1 Date Outcome GA Total Labor Labor/2nd/3rd Weight Sex Type Anes PTL Ameena A1 A5 Name Clin 2004 Vag-Spo nt Living 2014 SAB 2016 Ectopic 2022 SAB Biochem ical 12/20 24 SAB Biochem ical Summary Episode Dates Number of Fetuses Estimated Date of Delivery 12/17/2024 - Present (05/17/2025) Unknown Vitals Pregravid Weight Height TWG (As of 05/17/2025) Pregrav id BMI 157.5 cm (5' 2) Date GA Fund Present FHR Mvmt BP Weight Edema Alb Glu Ket Dil/ Eff/Sta 12/17/2024 Inpatient data n ot displayed here. See encounter summary. 12/19/2024 Inpatient data n ot displayed here. See encounter summary. 03/02/2025 Inpatient data n ot displayed here. See encounter summary. Notes Progress Notes - Office Visi t - 03/02/2025 - GA: 03/02/2025 - Brenda Beaulieu MD Images from the original note were not included. PHOTOSTAT OPERATOR RETURN VISIT Subjective: Holly Simeon is a 39 y.o. who presents for evaluation of recurrent loss. PMH significant for bipolar, depression, PCOS, Hx G1 PreE and hyperemesis. She presented for workup of loss. She had a live , followed by SAB, ectopic, then 2 chemical pregnancies. She underwent the following evaluation after her last visit: She had APLS testing that was negative. Myriad screening in process. Free testosterone 1.69. A1c 6.0%. PRL/TSH normal. Karyotype 46XX. TVUS with normal size uterus, fibroids intramural and anterior 8.2mm mean diameter. Normal bilateral ovaries. Using period tracker [place] - cycles happen either bleeding twice in a month or 2-3 months between periods. Not using OPKs From tracking [place], last cycles: 06/02 started, 6 days of bleeding Irregular Spotting end oct 08/05- (bleeding) 08/24- Irregular Spotting 10/29 - 11/02 (bleeding) Estimated Conception 11/20 for last 12/02 bleeding thorough 12/31, none since PHOTOSTAT OPERATOR History Menses: irregular see problem Pap History: unk Contraception: Nothing HRT: pre-menopausal OB History 5 Para 1 Term 1 AB 4 Living 1 SAB 3 IAB Ectopic 1 Multiple Live Births 1 Past Medical History: Diagnosis Date Bipolar 1 disorder (HCC) might be type 2 Depression PCOS (polycystic ovarian syndrome) 2003 Personality disorder (HCC) PTSD (post-traumatic stress disorder) Past Surgical History: Procedure Laterality Date ANKLE SURGERY Right 2022 KNEE SURGERY Right 2023 TONSILLECTOMY Bilateral 2000 Current Outpatient Medications: acetaminophen (TYLENOL) 500 mg tablet, Take 1 tablet (500 mg total) by mouth every 6 (six) hours as needed for pain, Disp: 60 tablet, Rfl: 0 ergocalciferol (VITAMIN D) 50,000 unit capsule, Take 1 capsule (50,000 Units total) by mouth once a week, Disp: , Rfl: hydrOXYzine (ATARAX) 25 mg tablet, Take 1 tablet (25 mg total) by mouth nightly, Disp: , Rfl: ibuprofen (ADVIL,MOTRIN) 600 mg tablet, Take 1 tablet (600 mg total) by mouth every 6 (six) hours as needed for pain, Disp: 30 tablet, Rfl: 0 medroxyPROGESTERone (PROVERA) 10 mg tablet, Take 1 tablet (10 mg total) by mouth daily for 10 days, Disp: 10 tablet, Rfl: 0 PNV with [id number]-VQ 27 mg iron- 1 mg tablet, 1 tablet (Patient not taking: Reported on 02/04/2025), Disp: , Rfl: QUEtiapine (SEROquel) 25 mg tablet, Take 1 tablet (25 mg total) by mouth nightly, Disp: , Rfl: Allergies Allergen Reactions Tramadol Palpitations Vicodin [Hydrocodone-Acetaminophen] Nausea & Vomiting No family history on file. Social History Tobacco Use Smoking status: Never Smokeless tobacco: Never Substance and Sexual Activity Drug use: Never Sexual activity: Yes Partners: Male control/protection: None Alcohol Use: Not At Risk (12/01/2022) Received from [facility] AUDIT-C Frequency of Alcohol Consumption: Never Average Number of Drinks: Patient does not drink Frequency of Binge Drinking: Never Objective: BP 128/78 Pulse 83 Wt 122.3 kg (269 lb 9.6 oz) LMP (LMP Unknown) Comment: last known SAB bleeding 01/02/25 BMI 49.31 kg/m Physical Exam General: NAD, mood appropriate Pulmonary: Non-labored Cardiovascular: Regular rate Abdomen: soft, non-tender, non-distended, without rebound or guarding Extremities: Warm and well perfused GENITAL EXAM: deferred Assessment/Plan: Holly Simeon is a 39 y.o. presents for RPL work up and preconception counseling. Problem List Encounter for preconception consultation Overview Reports she has had 4 losses back to back and hopes to be in the future. She is currently not in a relationship. Her past couple of losses have been with the same partner, prior pregnancies with a different partner. hx as follows: G1- full term delivery (2004) G2- ectopic G3, reports had an US with +FHT, subsequently passed tissue G4/G5 pregnancies she has had elevated bHCG, however, not able to see FP on US, most c/w chemical x2 G5 called OB to get vaginal progesterone. However, reports it took a week and a half from calling office to getting rx, and she is worried that this caused the loss. She presented for workup of loss. She had a live , followed by SAB, ectopic, then 2 chemical pregnancies. She underwent the following evaluation: She had APLS testing that was negative. Myriad screening in process. Free testosterone 1.69 (elevated). A1c 6.0%. PRL/TSH normal. Karyotype 46XX. TVUS with normal size uterus, fibroids intramural and anterior 8.2mm mean diameter. Normal bilateral ovaries. She does not desire right now, but she is more concerned about the ability to continue a in the future. We discussed recommendation for semen analysis if with prior partner and the role of semen analysis with a different partner. Counseled patient that early loss occurs in 10-15% of all clinically recognized pregnancies and occurs due to chromosomal abnormalities greater than 50% of the time. Discussed that only 2% of women experience two losses in a row, and only about 1% have three consecutive losses. After one miscarriage, the chance of a second miscarriage is about 14 to 21 percent. After two or three miscarriages the rate is 24 to 29 percent and 31 to 33 percent. Risks increased with advanaced maternal age and prior loss. We discussed that her 8 week miscarriage is a clinically recognized , but having two Chemical pregnancies does not perfectly fit in any diagnostic algorithm. We discussed a return visit at time of planning for a future and using OPKs to help time intercourse to increase chances of achieving pregnancies. PCOS (polycystic ovarian syndrome) Overview I reviewed with the patient the diagnosis of PCOS. The usual criteria for PCOS are abnormal menstrual cycles and evidence of hyperandrogenemia, which she meet given her oligomenorrhea and elevated serum testosterone. We discussed the role of insulin resistance and hyperinsulinemia in PCOS. I reviewed the termite control servicer sequelae including endometrial hyperplasia or cancer. We discussed the need for regular endometrial withdrawal. I reviewed the risks of dyslipidemia, coronary artery disease, hypertension, and diabetes on future health. We discussed that PCOS can be a cause of difficulty conceiving due to anovulation. I reviewed the essential role of weight loss, exercise and diet in treating the symptoms of PCOS. We discussed that the treatment for PCOS depends of the goal of therapy. We discussed that people with PCOS can achieve spontaneous , but infertility rates are increased compared to patients without PCOS. There are fertility treatment options available if she would like to discuss further. She plans to implement lifestyle changes and follow up with PCP on elevated A1c (6.0%). AUB Menstrual history: she reports menarche at 10yo. Had been on DMPA 12-18yo. Had her daughter as soon as she got off DMPA. Was on DMPA following delivery and has also previously been on patch and implanon. She has not been on any control since 2009. Reviewed potential causes of AUB, specifically PALM COEIN Symptoms most consistent with AUB-O Workup: TVUS with normal size uterus, fibroids intramural and anterior 8.2mm mean diameter. Normal bilateral ovaries. Endometrial biopsy: deferred given PCOS diagnosis and < 3 months between periods, discussed role of provera for endometrial protection STI screening: neg 2022 Pap: yes, most recently normal 09/2022 per pt, got annual visit around October of this year CBC: Hgb 12.4 Prolactin: 10.0 Thyroid function: TSH 2.37 DHEAS, 17OHP, free testosterone: 163 (nl); < 40 (nl); 1.69 (elevated) Acne/Hirsutism: none Patient is going to try a provera challenge. We discussed the role of using provera for endometrial protection if no cycle for 3 months. Also discussed the role of use when trying to get to have regular cycles. She has not had resumption of menses after SAB in December Relevant Medications medroxyPROGESTERone (PROVERA) 10 mg tablet Patient discussed with Dr. Lyndon Beaulieu MD PhD Obstetrics & Gynecology - PGY 3 03/04/2025 Cosigned by Glenis Haney MD at 03/04/2025 5:08 PM CDT Associated attestation - Glenis Haney MD - 03/04/2025 5:08 PM CDT I have personally reviewed with Dr. Beaulieu the history, physical examination, laboratory studies and proposed management for Holly Simeon. Together we formulated a clinical diagnosis for each problem and developed a plan for therapy during or immediately after her clinic visit. I agree with the recommended plan of care. Can offer SIS with bubble study as part of work-up for RPL to rule out adhesions/endometrial abnormalities and for tubal evaluation. Progress Notes - Office Visi t - 02/04/2025 - GA: 02/04/2025 - Lexie Penaloza MD PHOTOSTAT OPERATOR NEW VISIT Subjective: Holly Simeon is a 39 y.o. who presents for evaluation of recurrent loss. PMH significant for bipolar, depression, PCOS. Reports she has had 4 losses back to back and hopes to be in the future. She is currently not in a relationship. Her past couple of losses have been with the same partner, prior pregnancies with a different partner. hx as follows: G1- full term delivery (2004) G2- ectopic G3, G4, G5- SABx3, in G3 reports had an US with +FHT, subsequently passed tissue, in G4/G5 pregnancies she has had elevated bHCG, however, not able to see FP on US, most c/w chemical x2 Most recent SAB (G5) was in 12/2024. She reports has followed with same primary OBGYN for several years and as soon as found out she was called OB to get vaginal progesterone. However, reports it took a week and a half from calling office to getting rx, and she is worried that this caused the loss. She reports frustration with not knowing why she has been unable to have subsequent term . She had continuous bleeding/spotting following miscarriage confirmed on 12/19, quit bleeding around 01/07, and has not yet had post-miscarriage cycle. In terms of PHOTOSTAT OPERATOR hx, she reports menarche at 10yo. Had been on DMPA 12-18yo. Had her daughter as soon as she got off DMPA. Was on DMPA following delivery and has also previously been on patch and implanon. She has not been on any control since 2009. Reports has previously been told she has PCOS, but unsure diagnosis criteria. She does report hx of irregular menses for several years. OBHx significant for preE and hyperemesis with daughter. PHOTOSTAT OPERATOR History Menses: irregular Pap History: unk Contraception: Nothing HRT: pre-menopausal OB History 5 Para 1 Term 1 AB 4 Living 1 SAB 3 IAB Ectopic 1 Multiple Live Births 1 Past Medical History: Diagnosis Date Bipolar 1 disorder (HCC) might be type 2 Depression PCOS (polycystic ovarian syndrome) 2003 Personality disorder (HCC) PTSD (post-traumatic stress disorder) Past Surgical History: Procedure Laterality Date ANKLE SURGERY Right 2022 KNEE SURGERY Right 2023 TONSILLECTOMY Bilateral 2000 Current Outpatient Medications: acetaminophen (TYLENOL) 500 mg tablet, Take 1 tablet (500 mg total) by mouth every 6 (six) hours as needed for pain, Disp: 60 tablet, Rfl: 0 ergocalciferol (VITAMIN D) 50,000 unit capsule, Take 1 capsule (50,000 Units total) by mouth once a week, Disp: , Rfl: hydrOXYzine (ATARAX) 25 mg tablet, Take 1 tablet (25 mg total) by mouth nightly, Disp: , Rfl: ibuprofen (ADVIL,MOTRIN) 600 mg tablet, Take 1 tablet (600 mg total) by mouth every 6 (six) hours as needed for pain, Disp: 30 tablet, Rfl: 0 QUEtiapine (SEROquel) 25 mg tablet, Take 1 tablet (25 mg total) by mouth nightly, Disp: , Rfl: PNV with jovpzwy-rryx-CV 27 mg iron- 1 mg tablet, 1 tablet (Patient not taking: Reported on 02/04/2025), Disp: , Rfl: Allergies Allergen Reactions Tramadol Palpitations Vicodin [Hydrocodone-Acetaminophen] Nausea & Vomiting No family history on file. Social History Tobacco Use Smoking status: Never Smokeless tobacco: Never Substance and Sexual Activity Drug use: Never Sexual activity: Yes Partners: Male control/protection: None Alcohol Use: Not At Risk (12/01/2022) Received from [facility] AUDIT-C Frequency of Alcohol Consumption: Never Average Number of Drinks: Patient does not drink Frequency of Binge Drinking: Never Objective: BP 124/70 (BP Location: Left arm, Patient Position: Sitting) Pulse 92 Ht 157.5 cm (5' 2) Wt 266 lb 3.2 oz (120.7 kg) LMP (LMP Unknown) Comment: last known SAB bleeding 01/02/25 SpO2 98% Unknown BMI 48.69 kg/m Physical Exam General: NAD, mood appropriate Pulmonary: Non-labored Cardiovascular: Regular rate Abdomen: soft, non-tender, non-distended, without rebound or guarding Extremities: Warm and well perfused GENITAL EXAM: deferred Assessment/Plan: Holly Simeon is a 39 y.o. presents for RPL work up. #RPL - pt has had 1 , followed by ectopic, SAB x1, chemical x2 - she would like to be in future, but does not have current partner - we discussed that she does not technically meet criteria for RPL given chemical pregnancies, however, given her age and strong desire for future , it is reasonable to pursue testing Plan: - formal pelvic US - A1c, TSH, APLS, FSH/E2, prolactin, testosterone, 17-OHP, DHEA-S today - karyotype today - discussed if planning with same partner as prior losses, would recommend SA for partner - EGY following formal US to discuss results of testing RTC following pelvic US. Patient seen and discussed with Dr. Whitten. Lexie Penaloza MD Cosigned by Mario Alberto Whitten MD at 02/09/2025 7:25 AM CDT Associated attestation - Mario Alberto Whitten MD - 02/09/2025 7:25 AM CDT I have seen and examined the patient. I agree with the findings and plan of care as discussed with and documented by resident physician Lexie Penaloza MD (PGY-3). Possible recurrent loss and PCOS for which evaluation has been ordered to better determine if intervention would be useful in future . Progress Notes - Hospital En counter - 12/20/2024 - GA: 12/20/2024 - Halina Royal RN Pt arrived to [facility] for lab draw and light bleeding HCG levels trending down On Admission pt having productive coughing w/ expiratory wheezing in upper right lung assessment per Daren PGY3 Pt resp panel [...] Reading Time Taken Comments Blood Pressure 128/78 03/02/2025 3:47 PM CDT Pulse 83 03/02/2025 3:47 PM CDT Temperature 36.7 C (98 F) 12/19/2024 8:50 PM CDT Respiratory Rate 16 12/19/2024 8:50 PM CDT Oxygen Saturation 98% 02/04/2025 3:35 PM CDT Inhaled Oxygen Concentration - - Weight 122.3 kg (269 lb 9.6 oz) 03/02/2025 3:47 PM CDT Height 157.5 cm (5' 2) 02/04/2025 3:35 PM CDT Body Mass Index 49.31 02/04/2025 3:35 PM CDT Plan of Treatment Upcoming Encounters Date Type Department Care Team (Late st Contact Info) Description 08/28/[address] [facility] [address] [place] [address] Calderon Watts MD [address] [id number] Health Maintenance Due Date Last Done Comments Cervical Cancer Screening 1987 Depression Screening 1987 Hepatitis C Screening 1987 Varicella Vaccines (1 of 2 - 13+ 2-dose series) 2000 Regular Well Visit/Exam 18-64 2005 HPV Vaccines (1 - 3-dose SCDM series) 2014 DTaP/Tdap/Td Vaccine (7 - Td or Tdap) 01/12/2025 01/12/2015, 04/09/2002, 06/09/1992, Additional history exists Influenza Vaccine (#1) 2025 05/20/2017 Hepatitis B Screening Completed 12/09/1998 , 07/18/1998, 12/13/1997 Pneumococcal vaccine <65 Aged Out No longer eligible based on patient's age to complete this topic Procedures Procedure Name Priority Date/Time Associated Diagnosis Comments US PELVIS COMPLETE Schedule Routine, Read Routine (OP Routine) 03/02/2025 2:01 PM CDT Recurrent loss CHROMOSOME ANALYSIS Routine 02/15/2025 2:37 PM CDT Recurrent loss from Last 3 Months Results * US Pelvis Complete (03/02/2025 2:01 PM CDT) Cul de Sac No free fluid visualized VIEWPOINT Endometrial Thickness 5.6 mm&millim eters VIEWPOINT Anatomical Region Laterality Modality Pelvis N/A Ultrasound 03/02/2025 2:16 PM CDT Impressions 03/02/2025 3:06 PM CDT 1- Normal size uterus with small intramural myoma. 2- Normal appearing ovaries 3- No adnexal masses are identified. Narrative Procedure Note Jose Luis Romeo MD - 03/02/2025 IMPRESSION: 1- Normal size uterus with small intramural myoma. 2- Normal appearing ovaries 3- No adnexal masses are identified. Lexie Penaloza MD IM US PROCEDURES Final Result * Chromosome analysis (02/15/2025 2:37 PM CDT) Pathologist [facility] Chromosome Analysis, Blood See Below [facility], Comment: Order ID: [id number] Specimen Type: Blood Clinical Indication: care for patient with re loss, second trimester RESULT: NORMAL FEMALE KARYOTYPE INTERPRETATION: Chromosome analysis revealed normal G-band patterns within the limits of standard cytogenetic analysis. Please expect the results of any other concurrent study in a separate report. NOMENCLATURE: 46,XX ASSAY INFORMATION: Method: G-Band (Digital Analysis: MetaSyst Cells Counted: 20 Band Level: 450 Cells Analyzed: 5 Cells Karyotyped: 5 This test does not address genetic disorders that cannot be detected by standard cytogenetic methods or rare events such as low level mosaicism or subtle rearrangements. Jovon Lantigua, PhD, [facility] [id number] [id number] Electronic Signature: 02/28/2025 2:02 AM Blood 02/15/2025 2:37 PM CDT 02/16/2025 4:35 AM CDT Narrative [facility] - 02/28/2025 1:57 AM CDT FASTING:NO FASTING: NO Lexie Penaloza MD LAB GENETIC TESTING Elba murry Result [facility] [place], [address] [place] [address] from Last 3 Months Insurance Care Teams Manager Medical Relationship Specialty Start Date End Date Adilia Conde MD [address] [place] [address] PCP - General Gastroenterology 05/13/24
--- OUTSIDE RECORDS SUMMARY | 2025-05-17 09:48 | XMS_ITS | Clinical Summary ---
Author Organization [facility] Address [address] [place] [address] Care Team Providers Care Building Carpenter Name Role Phone Adilia Conde MD Primary Care Provider + [phone] Source Comments [facility],non-owned Affiliates and Associated Physician Practices is amultiple site organization consisting of ambulatory clinics and hospital sitesin [place], [place], [place] and [place]. This disclosure is being madepursuant to the Care Everywhere program and may not contain all information available regarding this patient. Last updated 18.[facility] Allergies Active Allergy Reactions Criticality Noted Date [...] of 3 - 19+ 3-dose series) 2006 HPV VACCINE (1 - 3-dose SCDM series) 2014 PAP SMEAR 07/05/2020 07/05/2017 DEPRESSION SCREENING 09/02/2024 12/01/2022 COVID-19 VACCINE (1 - 2023-2 5 season) 2025 INFLUENZA VACCINE (#1) 2025 05/20/2017 ZOSTER VACCINE (1 of 2) 2037 HIB [...] patient's age to complete this topic Insurance [facility] [place] [address] [facility] Care Teams Building Carpenter Relationship Specialty Start Date End Date Adilia Conde MD [address] [place] [address] PCP - General 05/17/20
[2025-05-17] MEDS: ACETAMINOPHEN 500 MG TABLET 1000 MG PO (10:13)
[2025-05-17] MEDS: KETOROLAC 30 MG/ML VIAL (*BKC) IM (10:14)
[2025-05-17 11:05] VITALS: BP 142/84; PULSE 68; RESP 16; O2SAT 98
== END 2025-05-17 11:15 | disposition home or self-care (01) ==
PROVIDERS: Emergency Provider Nurse Practitioner Family; PCP Internal Medicine Gastroenterology
DX: S93.401A Sprain of unspecified ligament of right ankle, initial encounter (principal); W10.9XXA Fall (on) (from) unspecified stairs and steps, initial encounter
CPT/HCPCS: 73600; 73630; 96372; 99283; A9270; J1885

== ENCOUNTER 2025-06-04 17:22 | Emergency (ER) | payer OTHER, SELFPAY ==
[2025-06-04 17:29] VITALS: BP 141/100; PULSE 89; RESP 16; TEMP 36.7; O2SAT 100
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
== END 2025-06-04 17:58 | disposition short-term general hospital (02) ==
PROVIDERS: Emergency Provider Registered Nurse
DX: R20.0 Anesthesia of skin (principal); Z72.0 Tobacco use; E28.2 Polycystic ovarian syndrome; E66.01 Morbid (severe) obesity due to excess calories; Z68.42 Body mass index [BMI] 45.0-49.9, adult; J45.909 Unspecified asthma, uncomplicated; F31.9 Bipolar disorder, unspecified
CPT/HCPCS: 99212; G0463

== ENCOUNTER 2025-06-04 18:14 | Emergency (ER) | payer OTHER, SELFPAY ==
[2025-06-04 18:16] VITALS: BP 146/83; PULSE 91; RESP 18; TEMP 36.4; O2SAT 100
--- OUTSIDE RECORDS SUMMARY | 2025-06-04 18:17 | XMS_ITS | Data Portability ---
Author Organization [place] [facility], Main Office Address [address] [place] [address] Care Team Providers Care Corporate Webmaster Name Role Phone TALAT BHAKTA Primary Care Provider TALAT BHAKTA Referring Provider [phone] Assessment Encounter Date Assessment Date Assessment LastModified [...] to a short version she got at [facility], as this was more comfortable [...] 0-110. Mildly antalgic gait. Stable ligaments. Negative [facility]. We will have her resume NSAIDs as [...] line and over patellar tendon. Positive [facility]. Tenderness with palpitation over lateral ankle, no [...] joint line and over patellar tendon. Positive [facility]. BMI 45.7. Given her persistent symptoms with [...] tenderness with palpation over the hamstrings. Positive [facility]. BMI 45.7. MRI was reviewed, [...] Organization Details Last Modified Time Details Appointments New Patient 15 2024 11:00A Los Martinez DPM Not available Not available Not available Lab None recorded. Referral physical therapist referral - continuat ion of therapy R knee 2023 024 [facility] [place], [address] [place] [address], [place], [address], 08/05/2024 11:06:38 physical therapist referral - cont....p atient will call to schedule [address] Physical [facility] [place], [facility] [place], [address], 03/06/2024 14:54:07 physical therapist referral - Please contact pt to schedule for R knee post op meniscus repair ( 4) . Thanks [address] [facility] [place], [address] [facility], [place], [address], 01/08/2024 17:16:55 Procedures injection /aspirati on joint/bur sa (PROC) 2023 [email or web address] 1 In-Office Order, Internal Use Only DO Not Attach Compendium DO Not Attach Compendium, Do Not Delete/merge, [address] 08/03/2024 12:28:56 Surgeries None recorded. Imaging MRI, knee, w/o contrast 2023 [facility] ([facility]), [address] [facility], [place], [address], 07/20/2024 16:13:10 Medication Orders bupivacai ne HCl 0.5 % (5 mg/mL) injection solution [address]/[facility]armacy #[id number], [address], [place], [address], 08/05/2024 11:06:38 Kenalog 10 mg/mL suspensio n for injection [address]/Pharmacy #[id number], [address], [place], [address], 08/05/2024 11:06:38 meloxicam 15 mg tablet [address]/Pharmacy #[id number], [address], [place], [address], 08/05/2024 11:06:38 Mobic 15 mg tablet 2023 024 [id number], [address], [place], [address], 03/06/2024 14:54:07 Patient TargetsNo targets recorded. Patient InstructionsNo [...] Abnormal Flag Note LastModifiedBy Organization Detail LastModifiedTime 04/06/2004/06/2024 XR, knee, 4 or more view No observ ation record ed. [email or web address] Not Available 01/2024 16:27:27 04/06/20 24 04/06/2024 XR, ankle , 3 or more view No observ ation record ed. [email or web address] Not Available 01/2024 16:27:27 07/20/20 24 07/20/2024 MRI, knee, w/o contr ast No observ ation record ed. [email or web address] [address] [facility] [facility], [place], [address], 07/20/2024 16:14:57 05/11/20 25 05/09/2025 XR, foot, 3 or more view No observ ation record ed. [email or web address] Not Available 05/2025 16:43:09 05/11/20 25 05/09/2025 XR, ankle , 3 or more view No observ ation record ed. [email or web address] Not Available 05/2025 16:43:09 Result Notes None recorded. Problems Name Problem SNOMED Code Status Onset Date Resolution Date Notes Provider Name and Address Organization Details Recorded Time Right sided abdominal pain 342071137 Active Not Available [facility] 3 16:10:17 Adhesive capsulitis of shoulder 801243285 Active Not Available [facility] 3 16:10:17 Closed fracture of phalanx of foot 11477994 Active Not Available [facility] 3 16:10:17 Pain in limb 55945580 Active Not Available [facility] 3 16:10:17 Sprain of right ankle 1406132344501 9105 Active 2020 Not Available [facility] 3 16:10:16 Postoperat jeanne pain 809809145 Active 2020 Not Available [facility] 3 16:10:17 Postoperat jeanne visit 359963495 Active 2020 Not Available [facility] 3 16:10:16 Pain of right ankle joint 8586784768294 9106 Active 2021 Not Available [facility] 3 16:10:16 Stiffness of right ankle 8158947281519 04 Active 2021 Not Available [facility] 3 16:10:17 Ankle joint effusion 957389989 Active 2021 Not Available [facility] 3 16:10:16 Patellofem oral stress syndrome 535489858 Active 2021 Not Available [facility] 3 16:10:17 Foot pain 83285897 Active 2021 Not Available [facility] 3 16:10:17 Pain of right knee joint 5219733434620 00 Active 2022 ESTEFANI Reis, [place] [facility] 3 11:05:55 Effusion of joint of right knee 3996143789177 04 Active 2022 YASMINE Agrawal [address] [place] [address], [place] [address], [place], [address] , [employer] 3 12:27:57 Derangemen t of right knee 1433201055424 9109 Active 2022 YASMINE Agrawal [address], [address], [place], [address] , [employer] 3 15:04:19 Tear of medial meniscus of knee 280036928 Active 2023 Rao Jackson MD [address], [address], [place], [address] , [employer] 4 00:14:46 Tear of medial meniscus of knee 586406230 Active 2023 Rao Jackson MD [address], [address], [place], [address] , [employer] 4 17:35:35 Synovial plica syndrome of right knee 1476224540416 00 Active 2023 Rao Jackson MD [address], [place] [address], [place], [address] , [employer] 4 17:35:44 Problem Notes None recorded. Procedures Surgical History Date Name Laterality Status Provider Name and Address Organization Details Recorded Time 08/03/20 24 Ortho - Cortisone Injection completed Rao Jackson MD [address], [place] [address], [place], [address], [employer] 08/03/2024 12:54:35 11/21/19 24 Knee Surgery completed TEE What[facility] [employer] [facility] [employer] 02/10/2024 16:00:11 Tonsillectomy completed Not Available [facility] 10/31/2022 16:10:02 Ankle Surgery completed Not Available [facility] 10/31/2022 16:10:02 Imaging Results None recorded. Procedure Notes None recorded. Medical Equipment None Reported. Allergies Allergen ID Allergen Name Allergen Category Reaction Reaction Severity Criticality Documentation Date Start Date Code Code System Note Provider Name and Address Organization Details Recorded Time 76177 acetamino phen / hydrocodo ne medicatio n Not available Not available Not available 10/31/2022 76153 2 RxNorm Not Available [facility] 3 16:11:19 78338 Toradol medicatio n Not available Not available Not available 10/31/2022 41363 RxNorm Not Available [facility] 3 16:11:19 Medications Name Sig Start Date [...] 1 mL by injection route. 2023 active [facility]: 0003- 0494- 20 Not Available Not Available [...] completed Not Available Not Available Not Available Se-Demetrio 19 Chewable 29 mg iron-1 mg tablet [...] Not Available Not Available Not Available [facility] spacer DIRECTED 06/26 completed Not Available Not [...] Updated DateTime 01/08/2024 157.48 cm 44.8 kg/m2 815532.13 g Ingrid Hdez, ATC L [place] [facility] 01/08/2024 14:19:16 Date Recorded Body height Body mass index (BMI) Body weight Provider Name and Address Organization Details Last Updated DateTime 03/04/2024 157.48 cm 45.7 kg/m2 719039.09 g Diann Pleitez [facility] 03/04/2024 14:47:34 Date Recorded Body height Body mass index (BMI) Body weight Pain severity - 0-10 verbal numeric rating [Score] - Reported Provider Name and Address Organization Details Last Updated DateTime 04/07/2024 157.48 cm 45.7 kg/m2 066791.09 g 6 Candace Arroyo [facility] 04/07/2024 09:13:57 Date Recorded Body height Body mass index (BMI) Body weight Pain severity - 0-10 verbal numeric rating [Score] - Reported Provider Name and Address Organization Details Last Updated DateTime 07/01/2024 157.48 cm 45.7 kg/m2 437287.09 g 6 Candace Dina [facility] 07/01/2024 14:13:14 Date Recorded Body height Body mass index (BMI) Body weight Pain severity - 0-10 verbal numeric rating [Score] - Reported Provider Name and Address Organization Details Last Updated DateTime 08/03/2024 157.48 cm 45.7 kg/m2 869708.09 g 6 Candace Arroyo [facility] 08/03/2024 12:09:12 Social History Question Answer Notes LastModified by [employer] Details LastModified Time Tobacco Smoking Status Never Smoker Not Available [facility] 10/31/2022 16:10:01 If You Are , What Was Your Level Of Alcohol Consumption Prior To ? Occasional [email or web address] Information not available 08/03/2024 What Was The Date Of Your Most Recent Tobacco Screening? 08/03/2024 [email or web address] Information not available 08/03/2024 Have You Recently Traveled Abroad? No [id number] Information not available 10/31/2022 Sex: Unknown Functional Status Question Answer Note LastModified by Organizat [employer] Details LastModified Time What is your level of alcohol consumption? None [id number] Information not available 10/31/2022 Mental Status None recorded. Family History Relationship Description Onset Age of this Age Resolved Age Notes LastModified by Organization Details LastModified Time Father No current problems or disability marta Not available 10/2023 11:56:41 Mother No current problems or disability marta Not available 10/2023 11:56:41 Mother Family history of malignant neoplasm marta Not available 08/03 11:56:41 Mother Complication of anesthesia marta Not available 10/2023 11:56:41 Mother Hypertensive disorder [id number] Not available 10/31/2022 16:10:02 Medical History Condition Response ALLERGIES/HAYFEVER Y LUNG DISEASE/DISORDER N INSOMNIA N RADIATION / CHEMOTHERAPY N COPD N HIGH CHOLESTEROL / HYPERLIPIDEMIA N RHEUMATOID ARTHRITIS N EDEMA N CAROTID BLOCKAGE N DEPRESSION (INCLUDING POST ) Y BOWEL PROBLEMS N BACK / NECK PROBLEMS Y HAVE YOU BEEN HOSPITALIZED OR SEEN IN [facility] ER IN THE PAST YEAR ? N [...] Diagnosis SNOMED-CT Code Diagnosis ICD10 Code Diagnosis IMO Codes Diagnosis Note [id number] [facility] [place] [address] [place] [address] 02/22/2021 00:00:00 02/23/2021 08:42:44 [id number] [facility] [place] [address] [place] [address] 03/27/2021 00:00:00 03/28/2021 12:15:00 [id number] [facility] [place] [address] [place] [address] 04/24/2021 00:00:00 04/25/2021 06:42:32 [id number] [facility] [place] [address] [place] [address] 05/22/2021 00:00:00 05/23/2021 11:46:04 [id number] [facility] [place] [address] [place] [address] 06/29/2021 00:00:00 06/30/2021 10:23:36 [id number] [facility] [place] [address] [place] [address] 07/06/2021 00:00:00 07/09/2021 21:14:39 [id number] [facility] [place] [address] [place] [address] 07/20/2021 00:00:00 07/22/2021 14:21:20 [id number] [facility] [place] [address] [place] [address] 08/10/2021 00:00:00 08/15/2021 11:29:23 [id number] [facility] [place] [address] [place] [address] 09/14/2021 00:00:00 09/15/2021 09:29:57 [id number] [facility] [place] [address] [place] [address] 11/02/2021 00:00:00 11/06/2021 10:16:59 [id number] [facility] [place] [address] [place] [address] 02/12/2022 00:00:00 02/13/2022 09:10:47 [id number] [facility] [place] [address] [place] [address] 03/26/2022 00:00:00 03/27/2022 11:26:34 [id number] [facility] [place] [address] [place] [address] 05/28/2022 00:00:00 05/30/2022 18:03:17 [id number] Vern Tay MD [facility] [place] [address] [place] [address] 06/26/2022 00:00:00 06/26/2022 16:20:42 [id number] Gee Vargas MD [facility] [address] [address] 01/25/2021 00:00:00 01/25/2021 16:46:55 [id number] Gee Vargas MD [facility] [address] [place] [address] 02/23/2021 00:00:00 02/25/2021 21:20:17 [id number] Gee Vargas MD [facility] [address] [place], [place] [address] [address] 03/23/2021 00:00:00 03/23/2021 15:29:17 [id number] YASMINE Agrawal [facility] [place] [address] [place] [address] 08/02/2023 11:01:53 08/02/2023 12:11:56 Pain of right knee joint 6344173079 10777 M25.561 Effusion o f joint of right knee 4691584503 34489 M25.959 [id number] YASMINE Agrawal [facility] [place] [address] [place] [address] 08/08/2023 14:25:34 08/08/2023 14:59:09 Effusion of joint of right knee 4257051759 10943 M25.461 Pain of ri ght knee joint 6591291679 02386 M25.561 Derangemen t of right knee 8298946921 9383086 M23.91 [id number] Rao Jackson MD [facility] [place] [address] [place] [address] 09/11/2023 14:05:37 09/11/2023 14:23:25 Pain of right knee joint 0595255958 12972 M25.561 Tear of me dial meniscus of knee 556637515 S83.241A [id number] Rao Jackson MD [facility] [place] [address] [place] [address] 10/16/2023 14:48:35 10/16/2023 15:44:46 Pain of right knee joint 3745543426 08669 M25.561 Tear of me dial meniscus of knee 946066641 S83.241A Synovial p lica syndrome of right knee 5066641455 51083 M67.51 [id number] Rao Jackson MD [facility] [place] [address] [place] [address] 12/04/2023 14:11:50 12/04/2023 14:46:45 Pain of right knee joint 5530861037 14122 M25.561 Tear of me dial meniscus of knee 429300855 S83.241A [id number] Rao Jackson MD [facility] [place] [address] [place] [address] 12/18/2023 13:59:59 12/18/2023 14:59:22 Pain of right knee joint 7224480164 18371 M25.561 Tear of me dial meniscus of knee 102031069 S83.241A [id number] Rao Jackson MD [facility] [place] [address] [place] [address] 01/08/2024 14:09:56 01/08/2024 14:56:33 Pain of right knee joint 2410311601 77133 M25.561 Tear of me dial meniscus of knee 163765646 S83.241A [id number] Rao Jackson MD [facility] [place] [address] [place] [address] 03/04/2024 14:44:54 03/04/2024 15:27:49 Pain of right knee joint 8144909215 88566 M25.561 Tear of me dial meniscus of knee 865505592 S83.241D [id number] Rao Jackson MD [facility] [place] [address] [place] [address] 04/07/2024 09:10:23 04/07/2024 10:17:09 Pain of right knee joint 8974244382 48107 M25.597 [id number] Rao Jackson MD [facility] [place] [address] [place] [address] 07/01/2024 14:10:44 07/01/2024 14:50:42 Derangement of right knee 4709799298 1138420 M23.91 Pain of ri ght ankle joint 5028668523 9751287 M25.571 Postoperative visit 1836 23567 Z09 [id number] Rao Jackson MD [facility] [address] [facility] [place] [address] 08/03/2024 11:55:37 08/03/2024 12:35:35 Tear of medial meniscus of knee 220178098 S83.241D Pain of ri ght knee joint 1011794915 19560 M25.561 Health Concerns Section Related Observation LastModified by Organization Detai ls LastModified Time None Recorded Concern Status LastModified by Organization Details LastModified Time None Recorded Advance Directives Directive None Recorded Payers Insurance Date Sequence Insurance Name Policy Number Policy Mahmood Covered Member ID Mahmood Member ID Guarantor Name 12/17/2024 1 [facility] (MEDICAID HMO) [id number] Holly Simeon [id number] Holly Simeon-Ronnie e OBGybronson Episode No OBEpisode recorded.
--- OUTSIDE RECORDS SUMMARY | 2025-06-04 18:17 | XMS_ITS | Clinical Summary ---
Author Organization [facility] Address [facility] [place] [address] Care Team Providers Care Pin Ticket Machine Operator Name Role Phone Adilia Conde MD [...] mouth once a week Active PNV with fsbrtks-gybp-KG 27 mg iron- 1 mg tablet 1 [...] S/p counseling, patient elected to proceed with OnSwipe genetic risk screening Plan: - Referral placed to Dr. 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 I reviewed the fdc sequelae including endometrial hyperplasia or cancer. We [...] Overview (01/08/2025): Telephone Number Relationship Voicemail Mendoza [phone] (home) Home Yes Self Yes [x] PUL Card Given Working Diagnosis: PUL Date presented: 12/18/24 A/P: Holly Simeon is a 39 y.o. female Non- with PUL. Presented w/spotting, cramping. Positive UPT 12/07. Early IUP vs EPL vs ectopic. 12/17 12/17: quant 1,197. No evidence ectopic. 12/18: called spoke with pt who agreed confirmed she is coming into [facility] tomorrow for 48h repeat quant. 12/19: quant 649. 41% decrease. No e/o ectopic 12/23: patient will present to [facility] 12/24-- did not. 12/29: called and left VM/epic messaged pt to come into [facility] or clinic for repeat quant. 01/08: spoke with pt over phone. Got quant at outside facility. Quant 4.0. 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 Tasked [...] for [place] medicaid specialist OR refer to [place] medicaid office. [] Signed out with attending and mendoza to remove from beta book. Attending Name: Encounters Date Type Department Care Team Description 04/30/2025 Orders Only [facility] [address] [place] [address] Brenda Beaulieu MD At increased risk of breast cancer (Primary Dx); Family history of breast cancer in mother 04/16/2025 Telephone [facility] [address] [place] [address] Brenda Beaulieu MD from Last 3 Months Surgical History Surgery Date Site/Laterality Comments TONSILLECTOMY 09/02/2000 - 09/01/2001 Bilateral KNEE SURGERY 09/02/2023 - 09/01/2024 Right ANKLE SURGERY 09/02/2022 - 09/01/2023 Right Medical History Medical History Date Comments Depression Bipolar 1 disorder (HCC) might b e type 2 Personality disorder (HCC) PTSD (post-traumatic stress disorder) PCOS (polycystic ovarian syndrome) 2003 Social History Tobacco Use Types Packs/Day Years [...] money to buy more. 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 MANAGER EMBALMER FUNERAL DIRECTOR RETURN VISIT Subjective: Holly Simeon is a [...] 11/02 (bleeding) Estimated Conception 11/20 for last / bleeding thorough 12/31, none since MANAGER EMBALMER FUNERAL DIRECTOR History Menses: irregular see problem Pap History: [...] Disp: 10 tablet, Rfl: 0 PNV with hiobjik-tffx-ZZ 27 mg iron- 1 mg tablet, 1 [...] Use: Not At Risk (12/01/2022) Received from [facility] Health AUDIT-C Frequency of Alcohol Consumption: Never [...] She had APLS testing that was negative. OnSwipe screening in process. Free testosterone 1.69 (elevated). [...] and hyperinsulinemia in PCOS. I reviewed the buttermaker helper sequelae including endometrial hyperplasia or cancer. We [...] - [place]: 02/04/2025 - Lexie Penaloza MD MANAGER EMBALMER FUNERAL DIRECTOR NEW VISIT Subjective: Holly Simeon is a [...] yet had post-miscarriage cycle. In terms of MANAGER EMBALMER FUNERAL DIRECTOR hx, she reports menarche at 10yo. Had [...] significant for preE and hyperemesis with daughter. MANAGER EMBALMER FUNERAL DIRECTOR History Menses: irregular Pap History: unk Contraception: [...] mouth nightly, Disp: , Rfl: PNV with fzhaavg-xbsf-LR 27 mg iron- 1 mg tablet, 1 [...] Use: Not At Risk (12/01/2022) Received from [facility] Health AUDIT-C Frequency of Alcohol Consumption: Never [...] - Halina Royal RN Pt arrived to [facility] for lab draw and light bleeding HCG [...] st Contact Info) Description 08/28/2025 Hospital Encounter [address] [address] Calderon Watts MD [address] [address] Health Maintenance Due Date Last Done Comments [...] patient's age to complete this topic Insurance [id number] [place] [address] [facility] Care Teams Pin Ticket Machine Operator Relationship Specialty Start Date End Date Adilia Conde MD [address] [place] [address] PCP - General Gastroenterology 05/13/24
--- OUTSIDE RECORDS SUMMARY | 2025-06-04 18:17 | XMS_ITS | Clinical Summary ---
Author Organization [facility] Address [address] [place] [address] Care Team Providers Care Accounts Payable Bookkeeper Name Role Phone Adilia Conde MD Primary Care Provider + [phone] Source Comments [facility],non-owned Affiliates and Associated Physician Practices is amultiple site organization consisting of ambulatory clinics and hospital sitesin [place], [place], [place] and [place]. This disclosure is being madepursuant to the Care Everywhere program and may not contain all information available regarding this patient. Last updated 18.[facility] Allergies Active Allergy Reactions Criticality Noted Date [...] patient's age to complete this topic Insurance [facility] [place] [address] [facility] Care Teams Accounts Payable Bookkeeper Relationship Specialty Start Date End Date Adilia Conde MD [address] [place] [address] PCP - General 05/17/20
[2025-06-04 20:23] LABS: Hematocrit 41.2 % (37.0-47.0); Hemoglobin 13.1 g/dL (12.0-15.0); Immature Granulocyte Percent A 0.3 % (0-0.5); Lymphocytes Absolute Auto 1.99 K/mm3 (0.9-3.2); Mean Corpuscular HGB Conc 31.8 g/dl (32-36); Mean Corpuscular Hemoglobin 27.2 pg (26-34); Mean Corpuscular Volume 85.5 fl (80-100); Nucleated Red Blood Cells Absolute Auto 0.000 K/mm3 (0.0-0.012); Nucleated Red Blood Cells Perc 0.0 % (0.0-0.2); Platelet Count Result 231 k/mm3 (150-375); Red Blood Count 4.82 M/mm3 (4.2-5.4); White Blood Count 9.9 K/mm3 (4.5-10.0)
[2025-06-04 20:35] LABS: Alanine Aminotransferase 22 U/L (6-35); Albumin Level 4.2 g/dL (3.5-5.1); Alkaline Phosphatase 78 U/L (38-126); Anion Gap 6 mmol/L (4-12); Aspartate Amino Transferase 31 U/L (14-36); Bilirubin,Total 0.3 mg/dL (0.2-1.3); Blood Urea Nitrogen 12 mg/dL (7-17); Calcium 9.8 mg/dL (8.4-10.2); Carbon Dioxide 26 mmol/L (22-30); Chloride 102 mmol/L (98-107); Estimated CRCL calculation 84 ml/min; Estimated Glomerular Filt Rate > 60; Glucose 101 mg/dL (65-110); Magnesium 1.9 mg/dL (1.6-2.3); Potassium 4.6 mmol/L (3.4-5.0); Sodium 134 mmol/L (137-145); Total Protein 8.0 g/dL (6.3-8.2)
[2025-06-04] MEDS: SODIUM CHLORIDE 0.9% IV 1,000 ML 999 ML IV CONT (20:38)
[2025-06-04] MEDS: KETOROLAC 30 MG/ML VIAL (*BKC) IV PUSH (20:39)
[2025-06-04] MEDS: diazePAM INJ (*CRX) 10 MG/2 ML SYRINGE 5 MG IV PUSH (20:39)
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
== END 2025-06-04 21:52 | disposition home or self-care (01) ==
PROVIDERS: Emergency Provider Emergency Medicine
DX: R25.3 Fasciculation (principal); J45.909 Unspecified asthma, uncomplicated; E28.2 Polycystic ovarian syndrome; E66.01 Morbid (severe) obesity due to excess calories; Z68.42 Body mass index [BMI] 45.0-49.9, adult; F41.9 Anxiety disorder, unspecified; F31.9 Bipolar disorder, unspecified; Z91.410 Personal history of adult physical and sexual abuse; Z86.16 Personal history of COVID-19; F17.210 Nicotine dependence, cigarettes, uncomplicated; Z79.899 Other long term (current) drug therapy
CPT/HCPCS: 36415; 80053; 83735; 85025; 96361; 96374; 96375; 99284; J1885; J3360; J7030